=== PATIENT | male | born 1935 | race Caucasian/White ===

== ENCOUNTER 2019-11-11 12:34 | Emergency (ER) | payer MEDICARE, SELFPAY ==
--- NOTE | ~2019-11-11 | XR_ITS ---
EXAMINATION: XR chest 2V DATE: 11/11/2019 13:18 INDICATION: Syncope and weakness TECHNIQUE: PA and lateral views of the chest are obtained. COMPARISON: 10/02/2009 FINDINGS: The lungs are free of acute opacities. There is no pleural effusion or pneumothorax. The he art size is normal. There are bridging osteophytes at multiple levels in the spine, consistent with d iffuse idiopathic skeletal hyperostosis (DISH). An endoluminal aortic repair is noted. There are surg ical clips in the upper abdomen. IMPRESSION: 1. No acute cardiopulmonary abnormality. Reviewed, dictated and finalized at location B.
--- NOTE | 2019-11-11 12:41 | ED.SYNCOPE ---
HPI - Syncope General Chief Complaint: Syncope Stated Complaint: AMBULANCE Time Seen by Provider: 11/11/19 12:35 Source: patient and EMS Mode of arrival: ambulatory Limitations: no limitations History of Present Illness HPI narrative: 83-year-old man comes in today by EMS after having had a syncopal episode at home. He was sitting at the table eating lunch when he fell forward according to his . He states that he felt abnormal just prior to the episode however he did not have any shortness of breath, chest pain, nausea, abdominal pain or headache. He thinks he might have been unconscious for a short time. EMS found him slightly obtunded and with a pulse of 45. Blood sugarswere normal. He denies any recent illness. He states he was hospitalized at [facility] a month ago for valvular repair. He denies previous similar episode. He states he felt nauseated afterward, but he feels just fine now. complaint: loss of consciousness Onset (ago): minute(s) (30) -: minutes(s) Context: at rest Injuries sustained associated with event: none Current symptoms: none Treatments prior to arrival: none Related Data Home Medications Medication Instructions Recorded Confirmed acetaminophen 650 mg PO ONCE PRN 11/11/19 11/11/19 amlodipine 10 mg PO DAILY 11/11/19 11/11/19 aspirin [Aspir-81] 81 mg PO DAILY 11/11/19 11/11/19 carvedilol 25 mg PO DAILY 11/11/19 11/11/19 clopidogrel 75 mg PO DAILY 11/11/19 11/11/19 diclofenac sodium 1 % TOPICAL DAILY 11/11/19 11/11/19 famotidine 20 mg PO DAILY 11/11/19 11/11/19 ferrous sulfate 325 mg PO DAILY 11/11/19 11/11/19 gabapentin 300 mg PO DAILY 11/11/19 11/11/19 hydralazine 25 mg PO DAILY 11/11/19 11/11/19 isosorbide dinitrate 20 mg PO DAILY 11/11/19 11/11/19 polyethylene glycol 3350 [Miralax] 17 g PO DAILY 11/11/19 11/11/19 pravastatin 80 mg PO DAILY 11/11/19 11/11/19 sodium bicarbonate 650 mg PO BID 11/11/19 11/11/19 tamsulosin 0.4 mg PO DAILY 11/11/19 11/11/19 tramadol 50 mg PO BID PRN 11/11/19 11/11/19 Allergies Allergy/AdvReac Type Severity Reaction Status Date / Time Sulfa (Sulfonamide Allergy Verified 12/11/12 00:36 Antibiotics) Review of Systems Constitutional: Constitutional: Denies chills, Denies fever(s) and Denies weakness Eyes: Eyes: Denies change in vision and Denies photophobia ENT: Denies dysphagia, Denies nasal congestion and Denies sore throat Cardiovascular: Cardiovascular: Denies chest pain and Denies radiating jaw, neck or arm pain Respiratory: Respiratory: Denies chest congestion, Denies cough, Denies dyspnea and Denies wheezing Gastrointestinal: Gastrointestinal: Denies abdominal pain, Denies diarrhea, Denies nausea and Denies vomiting Genitourinary: Genitourinary: Denies hematuria, Denies dysuria and Denies urinary frequency Musculoskeletal: Musculoskeletal: Reports back pain ( chronic), Denies arthralgias and Denies joint swelling Integumentary/Breasts: Skin/Breast: Denies pruritus, Denies erythema and Denies rash Neurologic: Denies vertigo, Denies dizziness and Denies syncope Psychiatric: Psychiatric: Denies anxiety and Denies depression Endocrine: Endocrine: Denies polydipsia and Denies polyuria Hematologic/Lymphatic: Hematologic/Lymphatic: Denies easy bleeding and Denies easy bruising Allergic/Immunologic: Allergic/Immunologic: Denies lip swelling and Denies wheezing PMFSH Past Medical History Medical History Diverticulitis Dyslipidemia H/O congestive heart disease Hypertension Prostate cancer Renal insufficiency Surgical History Surgical History Heart valve replaced History of colon resection Social History Social History Smoking status: Never smoker Alcohol intake: never Substance use: never Living arrangements: with family Occupation/Education: retired
--- NOTE | 2019-11-11 12:42 | ECG_ITS ---
Measurements Intervals [place] Rate: 49 P: 49 IN: 284 QRS: 32 QRSD: 105 T: 66 QT: 439 QTc: 400 Interpretive Statements SINUS BRADYCARDIA WITH FIRST DEGREE AV BLOCK BORDERLINE ST-T WAVE ABNORMALITY- LATERAL LEADS BASELINE ARTIFACT- I, II, III, AVR, AVL, AVF, V1-V4 ABNORMAL ECG Electronically Signed On 11-11-2019 14:51:32 CDT by Baudilio Matthew D.O.
[2019-11-11 12:46] VITALS: BP 145/61; PULSE 50; RESP 17; TEMP 36.6; O2SAT 96
[2019-11-11 13:05] LABS: Basophils Absolute Auto 0.01 K/mm3 (0.00-0.10); Basophils Percent Auto 0.2 % (0.0-1.0); Eosinophils Absolute Auto 0.12 K/mm3 (0.02-0.50); Eosinophils Percent Auto 2.5 % (1.0-6.0); Hematocrit 29.5 % (37.0-46.0); Hemoglobin 9.7 g/dL (12.4-15.3); Immature Granulocyte Absolute 0.01 K/mm3 (0.00-0.00); Immature Granulocyte Percent A 0.2 % (0.0-0.0); Lymphocytes Absolute Auto 0.72 K/mm3 (1.10-4.50); Lymphocytes Percent Auto 14.7 % (18.0-42.0); Mean Corpuscular HGB Conc 32.9 g/dL (32.0-36.0); Mean Corpuscular Hemoglobin 30.1 pg (27.0-31.0); Mean Corpuscular Volume 91.6 fL (78.0-102.0); Mean Platelet Volume 9.9 fl (8.7-11.0); Monocytes Percent Auto 10.2 % (2.0-11.0); Neutrophils Absolute Auto 3.5 K/mm3 (1.7-7.2); Neutrophils Percent Auto 72.2 % (50.0-70.0); Platelet Count Result 102 K/mm3 (150-420); Red Blood Count 3.22 M/mm3 (4.70-6.10); Red Cell Distribution Width 14.3 % (11.6-14.4); White Blood Count 4.9 K/mm3 (4.8-10.8)
[2019-11-11 13:20] LABS: INR 1.1; Partial Thromboplastin Time 26.1 SEC (22.3-31.6); Prothrombin Time 11.1 Seconds (9.64-11.0)
[2019-11-11 13:23] LABS: Alanine Aminotransferase 11 U/L (16-63); Albumin Level 3.8 g/dL (3.4-5.0); Alkaline Phosphatase 44 U/L (46-116); Aspartate Amino Transferase 18 U/L (15-37); Bilirubin,Total 0.3 mg/dL (0.00-1.00); Blood Urea Nitrogen 32 mg/dL (7-18); CRP 0.5 mg/dL (0.0-0.9); Calcium 9.2 mg/dL (8.5-10.1); Carbon Dioxide 27 mmol/L (21-32); Chloride 106 mmol/L (98-108); Estimated Glomerular Filt Rate 29; Glucose 113 mg/dL (70-99); Lactic Acid 1.4 mmol/L (0.4-2.0); Osmolality Calculated 299 mOsm/kg (285-295); Sodium 141 mmol/L (136-145); Total Protein 7.1 g/dL (6.4-8.2)
[2019-11-11 13:24] LABS: Troponin I < 0.02 ng/mL (0.00-0.056)
--- NOTE | 2019-11-11 13:42 | PC.NURSE ---
CALL PLACED TO DR MORGAN, CARDIOLOGY AT [facility] [phone]
[2019-11-11 14:02] VITALS: BP 183/75; PULSE 59; RESP 16; O2SAT 96
[2019-11-11 14:21] LABS: Occult Blood Negative (Negative)
[2019-11-11 15:16] VITALS: BP 171/72; PULSE 61; O2SAT 100
== END 2019-11-11 15:18 | disposition home or self-care (01) ==
PROVIDERS: Emergency Provider Emergency Medicine; PCP Internal Medicine
DX: R55 Syncope and collapse (principal); E78.5 Hyperlipidemia, unspecified; I11.0 Hypertensive heart disease with heart failure; I50.9 Heart failure, unspecified; Z85.46 Personal history of malignant neoplasm of prostate; Z79.899 Other long term (current) drug therapy
CPT/HCPCS: 36415; 71046; 80053; 82272; 83605; 84484; 85025; 85610; 85730; 86140; 87040; 93005; 99283; 99284

== ENCOUNTER 2019-12-19 10:43 | Emergency (ER) | payer MEDICARE, SELFPAY ==
--- NOTE | ~2019-12-19 | CT_ITS ---
EXAMINATION: CT brain wo con DATE: 12/19/2019 11:21 INDICATION: Syncope. Lethargy. TECHNIQUE: Computed tomography (CT) of the head was performed without intravenous contrast. The dose- length product was 605.33 mGy-cm. The mA was adjusted according to patient size. Iterative reconstruc tion technique was employed. COMPARISON: CT dated 01/01/2019 FINDINGS: There are small chronic left lacunar infarctions. There is a focal chronic left frontal lob e infarction. There is generalized atrophy. There are scattered mild periventricular and subcortical white matter changes, most likely related to small vessel ischemic disease (microangiopathy). No acut e intracranial hemorrhage, infarction, mass or mass effect. There is mild mucosal thickening of the m axillary and ethmoid sinuses. Mastoids are pneumatized. IMPRESSION: 1. No acute intracranial abnormality. 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 3: Chronic age-related findings. Reviewed, dictated and finalized at location A.
--- NOTE | ~2019-12-19 | XR_ITS ---
XR chest 1V portable 12/19/2019 11:21 Indication: Syncope. Weakness. Procedure: AP portable chest Comparison: Comparison to multiple prior studies sequentially, with oldest reviewed study dated 10/02/2021. Findings: Cardiomegaly. No focal air space disease, pulmonary edema, pleural effusion or suspected pn eumothorax. No acute osseous abnormality. There are degenerative changes of the glenohumeral joints. Impression: 1: No acute cardiopulmonary disease. Reviewed, dictated and finalized at location A. Impression: 1: No acute cardiopulmonary disease.
[2019-12-19 10:43] VITALS: BP 198/86; PULSE 64; RESP 18; TEMP 37.1; O2SAT 98
--- NOTE | 2019-12-19 10:47 | ECG_ITS ---
Measurements Intervals [place] Rate: 60 P: 29 MD: 236 QRS: -43 QRSD: 179 T: 93 QT: 476 QTc: 478 Interpretive Statements SINUS RHYTHM WITH FIRST DEGREE AV BLOCK LEFT AXIS DEVIATION LEFT BUNDLE BRANCH BLOCK BASELINE ARTIFACT- II, III ABNORMAL ECG Electronically Signed On 12-19-2019 11:10:29 CDT by Baudilio Matthew D.O.
--- NOTE | 2019-12-19 10:53 | ED.SYNCOPE ---
HPI - Syncope General Chief Complaint: Syncope Stated Complaint: Ambulance Time Seen by Provider: 12/19/19 10:45 Source: patient Mode of arrival: ambulatory Limitations: no limitations History of Present Illness HPI narrative: 84-year-old man brought to the emergency department after having had a syncopal episode. He was sitting at a table with his when he went unconscious. He denies falls or injuries. States he has been feeling poorly in the last day or 2 and thinks he might have a UTI. He catheterizes himself daily since his TURP. He had a vomiting episode on the way to the emergency department but otherwise has been eating and drinking normally. He denies fever, shortness of breath, chest pain, abdominal pain, hematuria, dysuria, frequency, recent head injury, cough, sore throat and cold symptoms. his glucose was normal on arrival by EMS and his Pre-ER EKG showed a left bundle branch block. MD complaint: loss of consciousness Onset (ago): minute(s) Prodromal symptoms: lightheaded Witnessed: Yes - by Bystander Context: at rest Injuries sustained associated with event: none Current symptoms: other ( fatigue) History: previous syncopal episode Related Data Home Medications Medication Instructions Recorded Confirmed acetaminophen 650 mg PO ONCE PRN 11/11/19 12/19/19 amlodipine 10 mg PO DAILY 11/11/19 12/19/19 aspirin [Aspir-81] 81 mg PO DAILY 11/11/19 12/19/19 carvedilol 25 mg PO DAILY 11/11/19 12/19/19 clopidogrel 75 mg PO DAILY 11/11/19 12/19/19 diclofenac sodium 1 % TOPICAL DAILY 11/11/19 12/19/19 famotidine 20 mg PO DAILY 11/11/19 12/19/19 ferrous sulfate 325 mg PO DAILY 11/11/19 12/19/19 gabapentin 300 mg PO DAILY 11/11/19 12/19/19 hydralazine 25 mg PO DAILY 11/11/19 12/19/19 isosorbide dinitrate 20 mg PO DAILY 11/11/19 12/19/19 polyethylene glycol 3350 [Miralax] 17 g PO DAILY 11/11/19 12/19/19 pravastatin 80 mg PO DAILY 11/11/19 12/19/19 sodium bicarbonate 650 mg PO BID 11/11/19 12/19/19 tamsulosin 0.4 mg PO DAILY 11/11/19 12/19/19 tramadol 50 mg PO BID PRN 11/11/19 12/19/19 Allergies Allergy/AdvReac Type Severity Reaction Status Date / Time Sulfa (Sulfonamide Allergy Verified 12/11/12 00:36 Antibiotics) Review of Systems Constitutional: Constitutional: Denies chills, Reports fatigue and Denies fever(s) Eyes: Eyes: Denies change in vision and Denies photophobia ENT: Denies dysphagia, Denies nasal congestion and Denies sore throat Cardiovascular: Cardiovascular: Denies chest pain and Denies radiating jaw, neck or arm pain Respiratory: Respiratory: Denies cough, Denies dyspnea and Denies wheezing Gastrointestinal: Gastrointestinal: Denies abdominal pain, Denies diarrhea, Denies nausea and Reports vomiting Genitourinary: Genitourinary: Denies hematuria, Denies dysuria and Denies urinary frequency Musculoskeletal: Musculoskeletal: Denies arthralgias and Denies joint swelling Integumentary/Breasts: Skin/Breast: Denies pruritus, Denies erythema and Denies rash Neurologic: Reports as per HPI, Denies confusion, Denies headache(s), Denies focal weakness and Denies numbness Psychiatric: Psychiatric: Denies anxiety and Denies depression Endocrine: Endocrine: Denies polydipsia and Denies polyuria Hematologic/Lymphatic: Hematologic/Lymphatic: Denies easy bleeding and Denies easy bruising Allergic/Immunologic: Allergic/Immunologic: Denies lip swelling and Denies wheezing PMFSH Social History Social History Smoking status: Never smoker Alcohol intake: never Substance use: never Exam Const: General: no acute distress and alert Nutritional Appearance: obese Orientation/consciousness: patient oriented x3 HENMT: Ears: external ears normal, TM's normal bilaterally and EAC's normal Mouth: Yes Normal oral and palatal mucosa present and Yes moist mucous membranes Throat: posterior oropharynx normal and uvula midline Eyes: Conjuncti
[2019-12-19 11:06] VITALS: PULSE 62
--- NOTE | 2019-12-19 11:13 | PC.NURSE ---
report to huong hobson
[2019-12-19 11:15] LABS: Gastric Negative Control Negative; Gastric Positive Control Positive; Occult Blood Gastric Fluid Negative; pH Gastric Fluid 2 (1-8)
[2019-12-19 11:17] LABS: Basophils Absolute Auto 0.01 K/mm3 (0.00-0.10); Basophils Percent Auto 0.2 % (0.0-1.0); Eosinophils Absolute Auto 0.12 K/mm3 (0.02-0.50); Eosinophils Percent Auto 2.4 % (1.0-6.0); Hematocrit 33.8 % (37.0-46.0); Hemoglobin 11.6 g/dL (12.4-15.3); Immature Granulocyte Absolute 0.01 K/mm3 (0.00-0.00); Immature Granulocyte Percent A 0.2 % (0.0-0.0); Immature Platelet Fraction Pct 2.3 % (1.0-7.0); Lymphocytes Absolute Auto 0.53 K/mm3 (1.10-4.50); Lymphocytes Percent Auto 10.8 % (18.0-42.0); Mean Corpuscular HGB Conc 34.3 g/dL (32.0-36.0); Mean Corpuscular Hemoglobin 30.7 pg (27.0-31.0); Mean Corpuscular Volume 89.4 fL (78.0-102.0); Mean Platelet Volume 10.1 fl (8.7-11.0); Monocytes Absolute Auto 0.34 K/mm3 (0.10-0.90); Monocytes Percent Auto 6.9 % (2.0-11.0); Neutrophils Absolute Auto 3.9 K/mm3 (1.7-7.2); Neutrophils Percent Auto 79.5 % (50.0-70.0); Platelet Count Result 114 K/mm3 (150-420); Red Blood Count 3.78 M/mm3 (4.70-6.10); Red Cell Distribution Width 13.3 % (11.6-14.4); White Blood Count 4.9 K/mm3 (4.8-10.8)
[2019-12-19 11:27] LABS: Partial Thromboplastin Time 29.2 SEC (22.3-31.6); Prothrombin Time 10.5 Seconds (9.64-11.0)
[2019-12-19 11:32] LABS: Alanine Aminotransferase 12 U/L (16-63); Anion Gap 14.8 mmol/L (7-16); Aspartate Amino Transferase 15 U/L (15-37); Bilirubin,Total 0.3 mg/dL (0.00-1.00); Blood Urea Nitrogen 18 mg/dL (7-18); Calcium 9.5 mg/dL (8.5-10.1); Carbon Dioxide 27 mmol/L (21-32); Chloride 105 mmol/L (98-108); Estimated CRCL calculation 29 ml/min; Estimated Glomerular Filt Rate 37; Glucose 113 mg/dL (70-99); Osmolality Calculated 298 mOsm/kg (285-295); Potassium 3.8 mmol/L (3.5-5.1); Sodium 143 mmol/L (136-145); Total Protein 7.7 g/dL (6.4-8.2)
[2019-12-19 11:33] LABS: Troponin I < 0.02 ng/mL (0.00-0.056)
[2019-12-19 11:33] LABS: BNP 173 pg/mL (0-100)
[2019-12-19 11:43] LABS: Lactic Acid Reflex 1.3 mmol/L (0.4-2.0)
[2019-12-19 11:52] LABS: Alkaline Phosphatase 50 U/L (46-116)
[2019-12-19 12:07] LABS: Occult Blood Negative (Negative)
[2019-12-19 12:12] LABS: Add Urine Microscopic? YES; Appearance Urine Sl Cloudy (Clear); Bilirubin Urine Negative (Negative); Blood Urine 1+ (Negative); Color Urine Yellow (Yellow); Glucose Urine UA Negative (Negative); Ketones Urine Negative (Negative); Leukocyte Esterase Ur 2+ LEU/UL (Negative); Nitrate Urine Negative (Negative); Protein Urine 1+ (Negative); Specific Grav Ur 1.015 (1.010-1.020); Urobilinogen Urine 0.2 mg/dL (0.2-1.0); pH Urine 7.5 (5.0-8.0)
--- NOTE | 2019-12-19 12:20 | PC.NURSE ---
Dr. Ludwig requesting to speak with Dr. Cortes, pts tar distillation supervisor at [facility]. Dr. Cortes paged.
[2019-12-19 12:24] LABS: WBC Urine 31-50 /hpf (0-3)
[2019-12-19 12:25] VITALS: BP 197/83; PULSE 72
[2019-12-19 12:25] LABS: Bacteria Urine 3+ /hpf
[2019-12-19 12:30] VITALS: BP 154/75; PULSE 82
--- NOTE | 2019-12-19 12:31 | PC.NURSE ---
Dr. Ludwig speaking with Dr. Cortes.
[2019-12-19] MEDS: SODIUM CHLORIDE 0.9% IV 500 ML 999 ML IV CONT (12:43)
[2019-12-19 13:52] LABS: Troponin I < 0.02 ng/mL (0.00-0.056)
[2019-12-19 14:18] VITALS: BP 182/76; PULSE 72; RESP 16
== END 2019-12-19 14:21 | disposition home or self-care (01) ==
PROVIDERS: Emergency Provider Emergency Medicine; PCP Internal Medicine
DX: N39.0 Urinary tract infection, site not specified (principal); R55 Syncope and collapse; R11.10 Vomiting, unspecified
CPT/HCPCS: 36415; 70450; 71045; 80053; 81001; 82271; 82272; 83605; 83880; 83986; 84484; 85025; 85055; 85610; 85730; 87040; 87077; 87086; 87088; 87186; 93005; 96365; 99283; 99284; J0696; J7040

== ENCOUNTER 2020-01-08 10:24 | Outpatient (CLI) | payer MEDICARE, SELFPAY | END 2020-01-08 10:25 | disposition home or self-care (01) | PROVIDERS: PCP Internal Medicine | DX: N30.00 Acute cystitis without hematuria (principal) | CPT/HCPCS: 87077; 87086; 87088; 87186 ==

== ENCOUNTER 2020-02-12 09:20 | Emergency (ER) | payer MEDICARE, SELFPAY ==
[2020-02-12 09:25] VITALS: BP 163/84; PULSE 51; RESP 20; TEMP 36.7; O2SAT 99
--- NOTE | 2020-02-12 09:53 | ED.EAR ---
HPI - Ear Problem General Chief complaint: Ear Stated complaint: Ear pain Source: patient Mode of arrival: ambulatory Limitations: no limitations History of Present Illness HPI Narrative: this an 84-year-old gentleman that presents with left ear pain and swelling around the external ear canal currently no drainage no fever chills no sinus congestion no nasal discharge, patient states that earache started approximately 2 to 3 days ago does wear hearing aids bilaterally. Has a history of hypertension and hyperlipidemia. MD Complaint: ear pain and decreased hearing Location: left ear Duration: constant Severity: moderate Relieving factors: nothing Exacerbating factors: chewing and position of head Discharge from ear: Reports no Treatment prior to arrival: oral analgesic Related Data Home Medications Medication Instructions Recorded Confirmed acetaminophen 650 mg PO ONCE PRN 11/11/19 12/19/19 amlodipine 10 mg PO DAILY 11/11/19 12/19/19 aspirin [Aspir-81] 81 mg PO DAILY 11/11/19 12/19/19 carvedilol 25 mg PO DAILY 11/11/19 12/19/19 clopidogrel 75 mg PO DAILY 11/11/19 12/19/19 diclofenac sodium 1 % TOPICAL DAILY 11/11/19 12/19/19 famotidine 20 mg PO DAILY 11/11/19 12/19/19 ferrous sulfate 325 mg PO DAILY 11/11/19 12/19/19 gabapentin 300 mg PO DAILY 11/11/19 12/19/19 hydralazine 25 mg PO DAILY 11/11/19 12/19/19 isosorbide dinitrate 20 mg PO DAILY 11/11/19 12/19/19 polyethylene glycol 3350 [Miralax] 17 g PO DAILY 11/11/19 12/19/19 pravastatin 80 mg PO DAILY 11/11/19 12/19/19 sodium bicarbonate 650 mg PO BID 11/11/19 12/19/19 tamsulosin 0.4 mg PO DAILY 11/11/19 12/19/19 tramadol 50 mg PO BID PRN 11/11/19 12/19/19 Allergies Allergy/AdvReac Type Severity Reaction Status Date / Time Sulfa (Sulfonamide Allergy Verified 12/11/12 00:36 Antibiotics) Review of Systems Review of Systems: All systems reviewed & are unremarkable except as noted in HPI and below PMFSH Past Medical History Medical History Diverticulitis Dyslipidemia H/O congestive heart disease Hypertension Prostate cancer Renal insufficiency Surgical History Surgical History Heart valve replaced History of colon resection Social History Social History Smoking status: Never smoker Alcohol intake: never Substance use: never Exam Const: General: no acute distress and alert Orientation/consciousness: patient oriented x3 HENMT: Head: normal to inspection Other: External ear canal on the left swollen red and tender currently no drainage. Eyes: Conjunctivae: conjunctivae normal Pupils: Equal, round and reactive pupils present EOM: EOMs intact bilaterally Resp: Effort & Inspection: normal respiratory effort Auscultation: clear to auscultation bilaterally Cardio: Rate: regular rate Rhythm: regular rhythm GI: Auscultation: normal bowel sounds Back/Spine/Pelvis: Back: no CVA tenderness Skin: General skin exam: normal color Rashes: no rashes Neuro: General: patient oriented x3 Extrem: General: normal to inspection Psych: Appearance: grossly normal Mental Status: mental status grossly normal Affect: normal affect Course Course Emergency Course: Patient stated that he wanted his urine checked, despite having no symptoms no dysuria no hematuria no bladder tenderness no flank pain, evaluation of left ear canal is swollen red and tender and inform patient that we will send a prescription antibiotic and antibiotic ear drops to his pharmacy. Critical Care Time Critical Care Time Critical Care Time: No Discharge Plan Discharge Clinical Impression: Otitis externa Qualifiers: Otitis externa type: unspecified type Chronicity: acute Laterality: left Qualified Code(s): H60.502 - Unspecified acute noninfective otitis externa, left ear Patient Disposition: Home, April
--- NOTE | 2020-02-12 09:58 | PC.NURSE ---
PT REQUESTING URINE CHECKED FOR INFECTION RELATED TO PREVIOUS HISTORY, DENIES PAIN, BURNING, OR URINE DIFFICULTY. SINCE IM HERE, CAN I GET IT CHECKED. .
[2020-02-12 10:05] LABS: Appearance Urine Clear (Clear); Bilirubin Urine Negative (Negative); Color Urine Yellow (Yellow); Glucose Urine UA Negative (Negative); Ketones Urine Negative (Negative); Leukocyte Esterase Ur Negative (Negative); Nitrate Urine Negative (Negative); Protein Urine Negative (Negative); Specific Grav Ur 1.015 (1.010-1.020); Urobilinogen Urine 0.2 mg/dL (0.2-1.0)
[2020-02-12 10:07] LABS: Add Urine Microscopic? YES; Blood Urine Trace-Intact (Negative); RBC Urine 0-2 /hpf (0-2)
[2020-02-12 10:08] LABS: Bacteria Urine None seen /hpf; Mucus Urine None seen /lpf; Squamous Epithelial Cell Urine Rare /hpf (Few); WBC Urine None seen /hpf (0-3)
[2020-02-12 10:20] VITALS: BP 167/87; PULSE 54; RESP 20; TEMP 36.9; O2SAT 98
== END 2020-02-12 10:21 | disposition home or self-care (01) ==
PROVIDERS: Emergency Provider Emergency Medicine
DX: H60.502 Unspecified acute noninfective otitis externa, left ear (principal)
CPT/HCPCS: 81001; 99283

== ENCOUNTER 2020-06-22 15:44 | Outpatient (NON) | payer MEDICARE, SELFPAY ==
[2020-06-22 15:59] LABS: Appearance Urine Cloudy (Clear); Bilirubin Urine Negative (Negative); Color Urine Yellow (Yellow); Glucose Urine UA Negative (Negative); Ketones Urine Negative (Negative); Leukocyte Esterase Ur 3+ LEU/UL (Negative); Nitrate Urine Negative (Negative); Protein Urine Negative (Negative); Urobilinogen Urine 0.2 mg/dL (0.2-1.0)
[2020-06-22 16:05] LABS: Add Urine Microscopic? YES; Bacteria Urine 4+ /hpf; Blood Urine Trace-Intact (Negative); RBC Urine 0-2 /hpf (0-2); Squamous Epithelial Cell Urine Rare /hpf (Few); WBC Urine >75 /hpf (0-3)
== END 2020-06-22 15:45 ==
LOC: CHSLAB 15:49
DX: N39.0 Urinary tract infection, site not specified (principal)
CPT/HCPCS: 81001; 87077; 87086; 87088; 87186

== ENCOUNTER 2020-08-02 12:04 | Outpatient (NON) | payer MEDICARE, SELFPAY | END 2020-08-02 12:05 | LOC: CHSLAB 12:09 | DX: R30.0 Dysuria (principal) | CPT/HCPCS: 87077; 87086; 87088; 87186 ==

== ENCOUNTER 2020-08-06 18:08 | Emergency (ER) | payer MEDICARE, SELFPAY ==
[2020-08-06] VITALS (53 sets, daily range): BP systolic 108–204; BP diastolic 46–95; PULSE 30–76; RESP 9–27; TEMP 36; O2SAT 96–99
--- NOTE | ~2020-08-06 | CT_ITS ---
EXAMINATION: CT brain wo con DATE: 08/06/2020 19:00 INDICATION: Closed head injury. Syncope. TECHNIQUE: Computed tomography (CT) of the head was performed without intravenous contrast. The dose- length product was 434.34 mGy-cm. The mA was adjusted according to patient size. Iterative reconstruc tion technique was employed. COMPARISON: CT dated 12/19/2019 FINDINGS: There are chronic left frontal lobe and lacunar infarctions. Mild generalized brain parench ymal volume loss. There is intracranial atherosclerosis. Basilar cisterns are patent. Midline sagitta l images are unremarkable. There is mild mucosal thickening of the maxillary and ethmoid sinuses. Mas toids are pneumatized. No depressed skull fractures. There is high density material in the basilar ci sterns, compatible with small subarachnoid hemorrhage. There are scattered mild periventricular and subcortical white matter changes, most likely related to small vessel ischemic disease (microangiopathy). IMPRESSION: 1. Small subarachnoid hemorrhage of the basilar cisterns. 2: Chronic left frontal lobe left lacunar infarctions. Reviewed, dictated and finalized at location A. ICE OR WORK DISPATCHER
--- NOTE | ~2020-08-06 | XR_ITS ---
XR chest 1V portable 08/06/2020 18:34 Indication: Syncope. Bradycardia. Procedure: AP portable chest Comparison: 12/19/2019 Findings: Borderline heart size. No focal air space disease, pulmonary edema, pleural effusion or yamil pected pneumothorax. There are degenerative changes of the glenohumeral joints. No acute osseous abno rmality. Impression: 1: No acute cardiopulmonary disease. Reviewed, dictated and finalized at location A. PICKER Impression: 1: No acute cardiopulmonary disease.
--- NOTE | ~2020-08-06 | CT_ITS ---
EXAMINATION: CT cervical spine wo con DATE: 08/06/2020 18:59 INDICATION: Neck pain after syncope TECHNIQUE: Computed tomography (CT) of the cervical spine was performed without intravenous contrast. The dose-length product was 434 mGy-cm. Automated exposure control and iterative reconstruction tech nique were employed. COMPARISON: None FINDINGS: There is normal cervical lordosis. There is degenerative anterolisthesis at C5-6. There is disc narrowing and endplate degenerative change at multiple levels. There is multilevel facet and unc inate hypertrophy. No evidence for perched facet. Craniovertebral junction is normal. Lung apices are normal. No acute fracture or traumatic malalignment. IMPRESSION: 1. No acute abnormality of the cervical spine. 2: Moderate-severe cervical spondylosis. Reviewed, dictated and finalized at location A. ING INSTALLER
--- NOTE | 2020-08-06 18:12 | ECG_ITS ---
Measurements Intervals [place] Rate: 20 P: ND: 0 QRS: -76 QRSD: 158 T: 64 QT: 557 QTc: 327 Interpretive Statements SINUS RHYTHM WITH COMPLETE HEART BLOCK SLOW JUNCTIONAL ESCAPE RHYTHM RIGHT BUNDLE BRANCH BLOCK LEFT ANTERIOR FASCICULAR BLOCK BASELINE WANDER- I, II ABNORMAL ECG Electronically Signed On 08-06-2020 18:34:24 PHYS ASST by Baudilio Matthew D.O.
--- NOTE | 2020-08-06 18:15 | PC.NURSE ---
Pt had approx 10 second episode of asystole, name called and then sternal rub. pt sluggish to respond initially and the pt hr resumed to 60 bpm and 1st degree block. Pt answering questions appropriately after episode.
[2020-08-06 18:40] LABS: Basophils Absolute Auto 0.02 K/mm3 (0.00-0.10); Basophils Percent Auto 0.4 % (0.0-1.0); Eosinophils Absolute Auto 0.14 K/mm3 (0.02-0.50); Eosinophils Percent Auto 2.7 % (1.0-6.0); Hematocrit 36.2 % (37.0-46.0); Hemoglobin 12.1 g/dL (12.4-15.3); Immature Granulocyte Absolute 0.03 K/mm3 (0.00-0.00); Immature Granulocyte Percent A 0.6 % (0.0-0.0); Immature Platelet Fraction Pct 2.8 % (1.0-7.0); Lymphocytes Absolute Auto 1.02 K/mm3 (1.10-4.50); Mean Corpuscular HGB Conc 33.4 g/dL (32.0-36.0); Mean Corpuscular Hemoglobin 30.8 pg (27.0-31.0); Mean Corpuscular Volume 92.1 fL (78.0-102.0); Mean Platelet Volume 9.6 fl (8.7-11.0); Monocytes Absolute Auto 0.41 K/mm3 (0.10-0.90); Neutrophils Absolute Auto 3.5 K/mm3 (1.7-7.2); Neutrophils Percent Auto 68.3 % (50.0-70.0); Platelet Count Result 98 K/mm3 (150-420); Red Blood Count 3.93 M/mm3 (4.70-6.10); Red Cell Distribution Width 13.5 % (11.6-14.4); White Blood Count 5.1 K/mm3 (4.8-10.8)
--- NOTE | 2020-08-06 18:41 | PCDIET ---
Pt taken to ct with RN at bedside.
--- NOTE | 2020-08-06 18:42 | PC.NURSE ---
pt rolled to side , old bruise to right rib area. pt to xray for CT per er stretcher and xray staff.
[2020-08-06 18:56] LABS: Alanine Aminotransferase 14 U/L (16-63); Albumin Level 4.3 g/dL (3.4-5.0); Alkaline Phosphatase 51 U/L (46-116); Anion Gap 9 mmol/L (8-16); Aspartate Amino Transferase 11 U/L (15-37); Bilirubin,Total 0.4 mg/dL (0.00-1.00); Blood Urea Nitrogen 30 mg/dL (7-18); Calcium 9.3 mg/dL (8.5-10.1); Carbon Dioxide 26 mmol/L (21-32); Chloride 103 mmol/L (98-108); Estimated CRCL calculation 27 ml/min; Estimated Glomerular Filt Rate 36; Glucose 137 mg/dL (70-99); Osmolality Calculated 294 mOsm/kg (285-295); Potassium 4.1 mmol/L (3.5-5.1); Sodium 138 mmol/L (136-145); Total Protein 7.5 g/dL (6.4-8.2)
[2020-08-06 18:57] LABS: Partial Thromboplastin Time 27.9 SEC (23.90-30.70); Prothrombin Time 11.1 Seconds (9.50-12.10)
[2020-08-06 19:02] LABS: BNP 198 pg/mL (0-100); Troponin I 12.5 ng/L (0.00-60.4)
--- NOTE | 2020-08-06 19:15 | ECG_ITS ---
Measurements Intervals [place] Rate: 66 P: 70 NH: 299 QRS: -41 QRSD: 181 T: 90 QT: 466 QTc: 491 Interpretive Statements SINUS RHYTHM WITH FIRST DEGREE AV BLOCK LEFT AXIS DEVIATION LEFT BUNDLE BRANCH BLOCK ABNORMAL ECG Electronically Signed On 08-07-2020 7:49:35 [employer]HALT STILL OPERATOR by Baudilio Matthew D.O.
[2020-08-06 19:18] LABS: D Dimer 5.48 mg/L (0.19-0.50)
[2020-08-06 19:45] LABS: Add Urine Microscopic? YES; Bilirubin Urine Negative (Negative); Blood Urine 1+ (Negative); Color Urine Yellow (Yellow); Glucose Urine UA Negative (Negative); Ketones Urine Negative (Negative); Leukocyte Esterase Ur 2+ LEU/UL (Negative); Nitrate Urine Negative (Negative); Protein Urine 1+ (Negative); Specific Grav Ur 1.015 (1.010-1.020); Urobilinogen Urine 0.2 mg/dL (0.2-1.0)
[2020-08-06 19:52] LABS: Amphetamine Screen Urine Negative (Negative); Barbiturate Screen Urine Negative (Negative); Benzodiazepines Screen Urine Negative (Negative); Cannabinoid Screen Urine Negative (Negative); Cocaine Screen Urine Negative (Negative); Methadone Screen Urine Negative (Negative); Opiate Screen Urine Negative (Negative); Phencyclidine Screen Urine Negative (Negative)
--- NOTE | 2020-08-06 19:52 | PC.NURSE ---
Dr. lynn speaking with Dr. Cunningham at [facility].
[2020-08-06 19:59] LABS: Appearance Urine Sl Cloudy (Clear)
[2020-08-06 20:00] LABS: RBC Urine 0-2 /hpf (0-2); Squamous Epithelial Cell Urine Occasional /hpf (Few); WBC Clumps Urine Present /hpf; WBC Urine >75 /hpf (0-3)
[2020-08-06 20:01] LABS: Bacteria Urine 2+ /hpf
[2020-08-06] MEDS: MORPHINE SULFATE (*CRX) 2 MG/ML INJ IV PUSH ×3 (20:38→23:35)
--- NOTE | 2020-08-06 21:03 | PC.NURSE ---
dR. OROZCO SPEAKING WITH DR GONZALEZ, NEUROLOGY, AT [facility].
--- NOTE | 2020-08-06 21:14 | ED.SYNCOPE ---
HPI - Syncope General Chief Complaint: Arrhythmia/Palpitations Stated Complaint: AMB Time Seen by Provider: 08/06/20 18:12 Source: patient Mode of arrival: EMS Limitations: altered mental status History of Present Illness HPI narrative: 84-year-old man brought to the emergency department by EMS after having passed out at home. His states that he was feeling out Cristian cards, got up to go to the restroom using his walker, defecated, and on his way back from the bathroom he fell backwards and was unconscious. His states that he was confused after the fall. He denies any chest pain, shortness of breath, palpitations, nausea vomiting or headache prior to the fall. He has had no recent illnesses such as cough or cold symptoms, abdominal pain, fever, or neurologic symptoms such as numbness, tingling, weakness, double vision or difficulty with language or speech. He has had 2 prior visits for similar symptoms in this Emergency Department. There is a history of presenting with bradycardia. according to his he has had coronary stents and a TAVR in the last year. MD complaint: loss of consciousness and collapsed Onset (ago): minute(s) (20) -: minutes(s) Description of event: post-event confusion Prodromal symptoms: none Witnessed: Yes - by Bystander Context: during exertion Injuries sustained associated with event: head Current symptoms: headache ( Mild) and other ( mild confusion) History: previous syncopal episode and history of CAD Treatments prior to arrival: none Related Data Home Medications Medication Instructions Recorded Confirmed acetaminophen 650 mg PO ONCE PRN 11/11/19 08/06/20 amlodipine 5 mg PO DAILY 11/11/19 08/06/20 aspirin [Aspir-81] 81 mg PO DAILY 11/11/19 08/06/20 carvedilol 25 mg PO BID 11/11/19 08/06/20 clopidogrel 75 mg PO DAILY 11/11/19 08/06/20 diclofenac sodium 1 % TOPICAL BID 11/11/19 08/06/20 gabapentin 300 mg PO HS 11/11/19 08/06/20 polyethylene glycol 3350 [Miralax] 17 g PO DAILY 11/11/19 08/06/20 pravastatin 80 mg PO HS 11/11/19 08/06/20 sodium bicarbonate 650 mg PO BID 11/11/19 08/06/20 tramadol 50 mg PO BID PRN 11/11/19 08/06/20 ciprofloxacin HCl 250 mg PO DAILY 08/06/20 08/06/20 ferrous sulfate 325 mg PO BID 08/06/20 08/06/20 tamsulosin 0.4 mg PO BID 08/06/20 08/06/20 Allergies Allergy/AdvReac Type Severity Reaction Status Date / Time Sulfa (Sulfonamide Allergy Verified 12/11/12 00:36 Antibiotics) Review of Systems Constitutional: Constitutional: Denies chills, Denies fever(s) and Denies weakness Eyes: Eyes: Denies change in vision and Denies photophobia ENT: Denies dysphagia, Denies nasal congestion and Denies sore throat Cardiovascular: Cardiovascular: Denies chest pain and Denies radiating jaw, neck or arm pain Respiratory: Respiratory: Denies cough, Denies dyspnea and Denies wheezing Gastrointestinal: Gastrointestinal: Denies abdominal pain, Denies nausea and Denies vomiting Genitourinary: Genitourinary: Denies hematuria, Denies dysuria and Denies urinary frequency Musculoskeletal: Musculoskeletal: Reports back pain, Denies arthralgias and Denies joint swelling Integumentary/Breasts: Skin/Breast: Denies pruritus, Denies erythema and Denies rash Neurologic: Denies vertigo, Denies dizziness, Reports syncope, Reports headache(s), Denies focal weakness and Denies numbness Hematologic/Lymphatic: Hematologic/Lymphatic: Denies easy bleeding and Denies easy bruising Allergic/Immunologic: Allergic/Immunologic: Denies lip swelling and Denies tongue swelling [facility] Past Medical History Medical History (Updated 08/06/20 @ 21:40 by Randy Ludwig MD) Diverticulitis Dyslipidemia H/O congestive heart disease Hypertension Prostate cancer Renal insufficiency Surgical History Surgical History Heart valve replaced History of colon resection Social History Social History (Reviewed 08/06/20 @ 21:26 by
[2020-08-06 21:37] LABS: Thyroid Stimulating Hormone Reflex 2.97 u/IU/mL (0.36-3.74)
--- NOTE | 2020-08-06 23:28 | PC.NURSE ---
Pt repositioned on right side for comfort, pillow between knees.
[2020-08-06] MEDS: SODIUM CHLORIDE 0.9% IV 1,000 ML 100 ML IV CONT (23:30)
[2020-08-07] VITALS (9 sets, daily range): BP systolic 105–131; BP diastolic 39–50; PULSE 58–62; RESP 11–14; O2SAT 95–98
--- NOTE | 2020-08-07 00:35 | PC.NURSE ---
Call back from [facility] bed assignement. Call made by [facility] to give report. Pt. to go to [place] [id number] Bed 1.
[2020-08-07 01:12] LABS: Troponin I 27.3 ng/L (0.00-60.4)
== END 2020-08-07 01:39 | disposition short-term general hospital (02) ==
PROVIDERS: Emergency Provider Emergency Medicine; PCP Internal Medicine
DX: I60.9 Nontraumatic subarachnoid hemorrhage, unspecified (principal); I44.2 Atrioventricular block, complete; N39.0 Urinary tract infection, site not specified; R79.1 Abnormal coagulation profile; R55 Syncope and collapse; N18.32 Chronic kidney disease, stage 3b; E78.5 Hyperlipidemia, unspecified; I50.9 Heart failure, unspecified; Z85.46 Personal history of malignant neoplasm of prostate; Z79.899 Other long term (current) drug therapy
CPT/HCPCS: 36415; 70450; 71045; 72125; 80053; 80307; 81001; 83880; 84443; 84484; 85025; 85055; 85380; 85610; 85730; 87077; 87086; 87088; 87186; 93005; 96361; 96365; 96375; 96376; 99285; 99291; J0696; J2270; J7030

== ENCOUNTER 2020-08-14 17:36 | IRF | payer MEDICARE, SELFPAY ==
[2020-08-14 17:55] VITALS: BP 169/54; PULSE 59; RESP 20; TEMP 36.8; O2SAT 96
[2020-08-14 17:56] VITALS: BMI 30.2
--- NOTE | 2020-08-14 18:48 | ADMGEN ---
This patient, Pasquale Hernandez, was admitted to [facility] Room 223-02. Patient/family oriented to hospital policies and general routines including ID bracelet, bed and alarms, visiting hours, pain management, procedures, bathroom and other care routines, personal items, smoking policy, room service/diet, and visiting hours. Information on how to activate the Rapid Response Team has been discussed. Patient/Family are encouraged to report perceived risks to care and to ask questions if they do not understand what they are told or what they should do.
--- NOTE | 2020-08-14 19:07 | PC.NURSE ---
no valuables here except cell phone.
[2020-08-14 19:09] VITALS: PULSE 59; RESP 20; O2SAT 96
[2020-08-14 20:10] VITALS: PULSE 60; RESP 20; O2SAT 97
[2020-08-14] MEDS: traMADol HCL (*CRX) 50 MG TABLET PO (21:12)
[2020-08-14] MEDS: DOCUSATE SODIUM 100 MG CAPSULE PO (21:29)
[2020-08-14] MEDS: GABAPENTIN 300 MG CAPSULE PO (21:29)
[2020-08-14] MEDS: SENNOSIDES 8.6 MG TABLET PO (21:29)
[2020-08-14] MEDS: SODIUM BICARBONATE TAB 650 MG TABLET PO (21:30)
[2020-08-14] MEDS: FAMOTIDINE 20 MG TABLET PO (21:30)
[2020-08-14 21:31] VITALS: PULSE 62
[2020-08-14] MEDS: carvediloL 12.5 MG TABLET PO (21:31)
[2020-08-14 22:00] VITALS: BP 152/43; PULSE 60; RESP 20; TEMP 36.9; O2SAT 97
[2020-08-15 05:20] LABS: Basophils Percent Auto 0.6 % (0.2-1.2); Eosinophils Absolute Auto 0.3 K/mm3 (0-0.3); Eosinophils Percent Auto 5.9 % (0-4.4); Hematocrit 31.8 % (42.0-52.0); Hemoglobin 10.8 g/dL (14.0-18.0); Immature Granulocyte Absolute 0.03 K/mm3 (0.00-0.031); Immature Granulocyte Percent A 0.6 % (0-0.5); Immature Platelet Fraction Pct 3.7 % (0.9-11.2); Lymphocytes Absolute Auto 1.43 K/mm3 (0.9-3.2); Lymphocytes Percent Auto 28.9 % (18.3-44.2); Mean Corpuscular Hemoglobin 30.9 pg (26-34); Mean Corpuscular Volume 91.1 fl (80-100); Mean Platelet Volume 10.3 fl (7.4-10.4); Monocytes Absolute Auto 0.4 K/mm3 (0.1-0.6); Monocytes Percent Auto 8.5 % (2.6-8.5); Neutrophils Absolute Auto 2.8 K/mm3 (1.3-6.7); Neutrophils Percent Auto 55.5 % (45.5-73.1); Platelet Count Result 102 k/mm3 (150-375); Red Blood Count 3.49 M/mm3 (4.6-6.20); Red Cell Distribution Width 13.4 % (11.5-14.5)
[2020-08-15 05:22] LABS: Anion Gap 6 mmol/L (8-16); Blood Urea Nitrogen 24 mg/dL (9-20); Carbon Dioxide 27 mmol/L (22-30); Chloride 103 mmol/L (98-107); Estimated CRCL calculation 41 ml/min; Estimated Glomerular Filt Rate 53; Glucose 85 mg/dL (75-110); Potassium 4.4 mmol/L (3.4-5.0); Sodium 136 mmol/L (137-145)
[2020-08-15 05:27] VITALS: BP 169/58; PULSE 60; RESP 20; TEMP 36.3; O2SAT 95
[2020-08-15] MEDS: traMADol HCL (*CRX) 50 MG TABLET PO (06:46)
[2020-08-15] MEDS: FERROUS SULFATE 324 MG TABLET PO (08:40)
[2020-08-15 08:41] VITALS: PULSE 94
[2020-08-15] MEDS: amLODIPine BESYLATE 5 MG TABLET 10 MG PO (08:41)
[2020-08-15] MEDS: carvediloL 12.5 MG TABLET PO ×2 (08:41→21:03)
[2020-08-15] MEDS: CYANOCOBALAMIN 1,000 MCG TABLET 1000 MCG PO (08:43)
[2020-08-15] MEDS: FAMOTIDINE 20 MG TABLET PO ×2 (08:43→21:03)
[2020-08-15] MEDS: DOCUSATE SODIUM 100 MG CAPSULE PO ×2 (08:43→17:12)
[2020-08-15] MEDS: GABAPENTIN 300 MG CAPSULE PO ×3 (08:44→17:10)
[2020-08-15] MEDS: lisinopriL 10 MG TABLET PO (08:44)
[2020-08-15] MEDS: FONDAPARINUX SODIUM 2.5 MG/0.5 ML SYRINGE SUB-Q (08:44)
[2020-08-15] MEDS: polyethylene glycoL 3350 17 GM POWD.PACK PO (08:45)
[2020-08-15] MEDS: PRAVASTATIN SODIUM 20 MG TABLET 80 MG PO (08:46)
[2020-08-15] MEDS: SODIUM BICARBONATE TAB 650 MG TABLET PO ×2 (08:48→17:10)
[2020-08-15] MEDS: TAMSULOSIN HCL 0.4 MG CAPSULE PO (08:48)
[2020-08-15] MEDS: SENNOSIDES 8.6 MG TABLET PO ×2 (08:49→17:10)
--- NOTE | 2020-08-15 12:18 | WPDREHABHP ---
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 The patient is an 84 years old male with a past medical history of hypertension, hyperlipidemia, coronary artery disease, aortic valve replacement, chronic kidney disease, renal artery stenosis, sleep apnea, and spinal stenosis who presented to [facility] following a syncopal fall. The patient reported falling backwards while walking away from the bathroom. The patient landed on the occipital part of his head and lost unconsciousness. Next thing the patient remembered that he was at [facility]. There was no prodromal. Symptoms. Upon arrival with EMS the patient was bradycardiac with a heart rate of 20-30 is on EKG initially showed complete heart block with rate of 20 and then patient spontaneously converted and subsequently EKG showed sinus rhythm with first-degree block and left bundle branch block at a rate of 66. CT scan of the head revealed a small subarachnoid hemorrhage of the basilar cistern and chronic left frontal lobe lacunar infarct. CT of the cervical spine was negative. The patient was transferred to [facility] in [place] for further neurosurgical evaluation and cardiological management. Neurosurgical service consulted and the patient underwent hourly neurological checks and a repeat CT scan of the head was done which revealed expected evolution of small volume subarachnoid hemorrhage. CTA revealed improving bifrontal small volume subarachnoid hemorrhage with no aneurysm or vascular malformation recognized. On August 07, 2020 the patient received 2units of platelets for thrombocytopenia and DA PT. Comorbid negative. He was started on cefepime for urinary tract infection. Cardiology and electrophysiology was consulted and deemed the patient in need of a pacemaker. On August 09, 2020 the patient underwent permanent pacemaker placement and also received 2units of platelets. On August 12, 2020 the patient received 2units of platelets with resulting platelet count of 1 1 9. DVT prophylaxis was initially held given the patient's low platelet count but the patient was started on fondaparinux for DVT prophylaxis on August 12, 2020 he is to resume aspirin on August 21, 2020 and his Plavix will be held up until follow-up he is awake alert oriented x4 at the time of transfer to our institution. COVID# The patient has not traveled outside the [place] or had contact with someone who is ill that his travel outside the [place] in the past 21 days. The patient has not traveled to an area of the [place] that is experiencing known transmission of the alvarenga virus and has not had close personal contact with anyone that has. The patient does not have a fever. The patient is not experiencing lower respiratory illness symptoms. Negative covid test on August 07, 2020 last time Therapy was initiated at the acute care facility and the patient transferred to us from [facility] on August 14, 2020 FALLS OR SURGERIES: the patient has had no major surgery in the last 100 days. The patient has had falls in the past year. The patient has had falls with injury in the past year( fall on August 07, 2020 causing the intracranial hemorrhage) PAST MEDICAL HISTORY: chronic kidney disease, due to radiation on September 19, 2008, diverticulitis with rupture, renal artery stenosis on 12/04 [id number], hearing loss bilaterally, hyperlipidemia, hypertension, prostatic cancer radiation treatment, radiation proctitis 2006, sleep apnea, renal stenosis, ventral hernia on September 19, 2008 PAST SURGICAL HISTORY: aortic valve replacement, colon rectum E, left knee
[2020-08-15 12:28] VITALS: BMI 30.2
--- NOTE | 2020-08-15 13:56 | WPDREHABHP ---
H&P: HPI History of Present Illness Date/Time: 08/15/20 13:56 Narrative: Pasquale Hernandez is a 84 year old maleHISTORY OF PRESENT ILLNESS: The patient's primary rehab impairment category is The etiologic diagnosis is [] I saw this patient [id number] on [] The patient is a [] Therapy was initiated at the acute care facility and the patient transferred to us from [[facility]] on [] FALLS OR SURGERIES: The patient has had [no] major surgeries in the 100 days prior to admission. They had [no] falls in the past year. They had [no] falls with injury in the past year. PAST MEDICAL HISTORY: [] PAST SURGICAL HISTORY: [] SOCIAL HISTORY: [] FAMILY HISTORY: [] PRIOR LEVEL OF FUNCTION: Eating was [INDEPENDENT] Oral Care was [INDEPENDENT] Toileting Hygiene was [INDEPENDENT] Shower/Bathing was [INDEPENDENT] Upper Body Dressing was [INDEPENDENT] Lower Body Dressing was [INDEPENDENT] Donning/[place] Footwear was [INDEPENDENT] Rolling Left and Right was [INDEPENDENT] Sit to Lying was [INDEPENDENT] Lying to Sitting was [INDEPENDENT] Sit to Stand was [INDEPENDENT] Bed to Chair Transfers was [INDEPENDENT] Toilet Transfers was [INDEPENDENT] Walking was [INDEPENDENT] [>500 feet] with [NO DEVICE] Wheelchair Mobility was [NOT APPLICABLE PRIOR TO ADMISSION] Stairs were [INDEPENDENT] CURRENT LEVEL OF FUNCTION: Eating was [SET UP ONLY] Oral Care was [SET UP ONLY] Toileting Hygiene was [] Shower/Bathing was [] Upper Body Dressing was [] Lower Body Dressing was [] Donning/[place] Footwear was [] Rolling Left and Right was [] Sit to Lying was [] Lying to Sitting was [] Sit to Stand was [] Bed to Chair Transfers were [] Toilet Transfers were [] Walking was [] Wheelchair Mobility was [] Stairs were [] GOALS: Our therapists will evaluate the patient and establish the goals. However, upon pre-admission screening, the expected goals were to be [INDEPENDENT] with self-care, [INDEPENDENT] with transfers, and [INDEPENDENT] with functional mobility so that the patient can return home. ESTIMATED LENGTH OF STAY: [10-14 days] POTENTIAL BARRIERS TO DISCHARGE: [Patient lives alone.] [Family needs training.] [Severity of condition.] [Architectural barriers.] ACTIVE CO-MORBIDITIES PRESENT ON ADMISSION: Active co-morbidities include []. The above co-morbidities impact the patient's function and/or functional outcome by [] [facility] Past Medical History Medical History (Updated 08/08/20 @ 00:00 by Gabe Irizarry) Diverticulitis Dyslipidemia H/O congestive heart disease Hypertension Prostate cancer Renal insufficiency Surgical History Surgical History Heart valve replaced History of colon resection Family History Family History (Updated 08/14/20 @ 19:30 by Mitra Del Rosario RN) Father Cerebrovascular accident Sibling CAD (coronary artery disease) Social History Social History Smoking status: Never smoker Alcohol intake: never Substance use: never Substance use type: does not use Gender identity (if verbalized by the patient): Male Sexual Orientation (if Verbalized by the Patient): Straight or Heterosexual Spiritual care concerns: No Meds Home Medications and Allergies Home Medications Medication Instructions Recorded Confirmed Type acetaminophen 650 mg PO ONCE PRN 11/11/19 08/06/20 History amlodipine 5 mg PO DAILY 11/11/19 08/06/20 History aspirin [Aspir-81] 81 mg PO DAILY 11/11/19 08/06/20 History carvedilol 25 mg PO BID 11/11/19 08/06/20 History clopidogrel 75 mg PO DAILY 11/11/19 08/06/20 History diclofenac sodium 1 % TOPICAL BID 11/11/19 08/06/20 History gabapentin 300 mg PO HS 11/11/19 08/06/20 History polyethylene glycol 3350 [Miralax] 17 g PO DAILY 11/11/19 08/06/20 History pravastatin 80 mg PO HS 11/11/19 08/06/20 History sodium bicar
[2020-08-15 14:00] VITALS: BP 135/33; PULSE 60; RESP 20; TEMP 37.1; O2SAT 98
--- NOTE | 2020-08-15 14:00 | WPDREHABHP ---
H&P: HPI History of Present Illness Date/Time: 08/15/20 14:00 Chief Complaint: brain dysfunction traumatic in nature Narrative: Pasquale Hernandez is a 84 year old male HISTORY OF PRESENT ILLNESS: The patient's primary rehab impairment category is brain dysfunction traumatic in nature The etiologic diagnosis is subarachnoid hemorrhage of the basilar cistern I saw this patient [id number] on August 15, 2020 at 11:30 a.m. The patient is a 84 years old right-handed male with past medical history of hypertension, hyperlipidemia, coronary artery disease, aortic valve replacement, chronic kidney disease, renal artery stenosis, sleep apnea, spinal stenosis who presented to [facility] following a syncopal fall. Patient reported falling backwards while walking away from the bathroom. The patient landed on the occipital part of the head and lost consciousness. The next thing the patient remembered is being at [facility]. There was no prodrome prior. Upon ER arrival with EMS the patient was bradycardiac 2230 heart rate EKG initially showed complete heart block with a rate of 20 and then the patient spontaneously converted and subsequent EKG revealed sinus rhythm with 1st degree block and left bundle branch block at a rate of [address] scan of the head revealed small subarachnoid hemorrhage of the basilar cistern and the chronic left frontal lobe lacunar infarct. CT of the cervical spine was negative. The patient was transferred to [facility] for further neurosurgical intervention and cardiological management. Neurosurgical service was consulted and the patient underwent hourly neurological checks and repeated its head CT scan revealed expected evolution of the small volume subarachnoid hemorrhage. On August 07, 2020 the patient received 2units of platelets for thrombocytopenia and DA PT. He was COVID negative started on cefepime for urinary tract infection. Chicken Hanger and application manager were consulted and deemed the patient in need of a pacemaker. On August 09, 2020 the patient underwent permanent pacemaker placement and also received 2units of platelet on August 12, 2020 the patient reveals CV 2units of platelets with resulting platelet count of 1 1 9 DVT prophylaxis was initially held given the patient's low platelet count but patient was started on fondaparinux for DVT prophylaxis on August 12, 2020 he is to resume aspirin on August 21, 2020 and his Plavix will be held up until follow-up he is at the time of admission here awake alert oriented x4 #COVID the patient has not traveled outside the [place] or head contact with someone who is ill that has traveled outside the [place] in the past 21 days. The patient has not traveled to an area of the [place] that is experiencing known transmission of the Coronavirus and has not had close personal contact with anyone that has. The patient does not have a fever. The patient is not experiencing lower respiratory illness symptoms. Negative COVID test noted on August 07, 2020 [facility] and the patient transferred to us from [facility] on August 14, 2020 FALLS OR SURGERIES: the patient has had no major surgery in the last 100 days. The patient has had falls in the past year. The patient has had falls with injury in the past year that his fall on August 07, 2020 causing intracranial hemorrhage. 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 PAST SURGICAL HISTORY: Aortic valve replacement in September of 2019 [id number], colectomy partial followed by total, left knee arthroscopy, rectal
[2020-08-15 20:00] VITALS: PULSE 62; RESP 20; O2SAT 99
[2020-08-15 21:03] VITALS: PULSE 60
[2020-08-15] MEDS: ACETAMINOPHEN 325 MG TABLET 650 MG PO (21:08)
[2020-08-15 22:00] VITALS: BP 178/63; PULSE 62; RESP 20; TEMP 36.8; O2SAT 99
[2020-08-16] MEDS: traMADol HCL (*CRX) 50 MG TABLET PO ×2 (02:09→21:24)
[2020-08-16 06:00] VITALS: BP 167/58; PULSE 59; RESP 20; TEMP 36.4; O2SAT 97
[2020-08-16] MEDS: GABAPENTIN 300 MG CAPSULE PO ×2 (08:25→12:58)
[2020-08-16] MEDS: FONDAPARINUX SODIUM 2.5 MG/0.5 ML SYRINGE SUB-Q (08:25)
[2020-08-16] MEDS: PRAVASTATIN SODIUM 20 MG TABLET 80 MG PO (08:25)
[2020-08-16] MEDS: SODIUM BICARBONATE TAB 650 MG TABLET PO ×2 (08:25→17:17)
[2020-08-16] MEDS: FAMOTIDINE 20 MG TABLET PO ×2 (08:26→20:07)
[2020-08-16 08:27] VITALS: PULSE 60
[2020-08-16] MEDS: CYANOCOBALAMIN 1,000 MCG TABLET 1000 MCG PO (08:27)
[2020-08-16] MEDS: amLODIPine BESYLATE 5 MG TABLET 10 MG PO (08:27)
[2020-08-16] MEDS: TAMSULOSIN HCL 0.4 MG CAPSULE PO (08:27)
[2020-08-16] MEDS: carvediloL 12.5 MG TABLET PO ×2 (08:27→20:06)
[2020-08-16] MEDS: lisinopriL 10 MG TABLET PO (08:27)
[2020-08-16] MEDS: DOCUSATE SODIUM 100 MG CAPSULE PO (08:29)
[2020-08-16] MEDS: ACETAMINOPHEN 325 MG TABLET 650 MG PO (08:31)
--- NOTE | 2020-08-16 09:09 | RPD ---
INDIVIDUALIZED PLAN OF CARE FOR Pasquale Hernandez Brief Synthesis of Pre-Admission Screen, Post-Admission Evaluation and Therapy Evaluations: The patient presents to rehab with subarachnoid hemorrhage of the basilar cistern. Comorbidities include syncope, chronic kidney disease, colitis, diverticulitis, hearing loss, hyperlipidemia, hypertension, prostate cancer, sleep apnea, spinal stenosis, ventral hernia, 1st degree heart block, and left bundle branch block. This patient requires intensive therapies to restore lost function in order to maximize their functional level of independence and quality of life. The complexity of the patient's medical management, nursing, and therapy needs require an inpatient rehab hospital stay with a physician-led interdisciplinary team approach. The patient?s needs will be best met in an intensive program vs. at a lower level of care. The patient requires physician services for neurology services, medical oversight, and coordination of care. The patient needs physician monitoring and treatment of thrombocytopenia, new pacemaker placement, monitoring for adverse reactions to new medications, monitoring of infection, and pain control. The patient requires nursing services for frequent neuro checks, anticoagulation therapy, medication management and education, pressure relief and skin care management, monitoring of labs, bladder training, IV administration, and fall/safety precautions. Deficits include:ADLs, Balance, Endurance, Family Training/Education, Mobility, Pain Management, ROM, Safety, Strength, and Transfers Pattern Grader Cutter/Case Management for: Discharge Planning and Patient/Family Counseling Physical Therapy: 5 days per week for 90 minutes. Treatments may include: Therapeutic Exercise, Gait Training, Neuromuscular Re-education, Transfer Training, Community Reintegration, Bed Mobility, Patient/Family Education, Wheelchair Mobility Group Therapy/Concurrent Therapy Rationales: -Improve attention span during functional activities in a distracted environment. -Enhance problem solving and/or adequate judgment skills during functional activities in a distracted environment. -Promote increased safety awareness in a distracted environment to reduce fall risk with functional tasks, transfers, and ambulation to allow a more safe, self-sufficient return to the home environment. -Improve dynamic balance skills to promote safety and independence with functional activities in a distracted environment for maximum gain. Occupational Therapy: 5 days per week for 90 minutes. Treatments may include: Therapeutic Exercise, Therapeutic Activity, Cognitive Training, Self-Care Transfer Training, Community Reintegration, Home Management, Patient/Family Education, Wheelchair Mobility Training, Energy Conservation Training Group Therapy/Concurrent Therapy Rationales: -Allow therapist to observe and teach generalization and carry-over of skills learned in individual therapy. -Enhance problem solving and sequencing skills during therapeutic activities in a distracted environment. -Promote increased safety awareness in a realistic setting to reduce fall risk with functional tasks due to visual and verbal distractions. -Increase functional level with ADLs, ADL transfers and use of adaptive equipment through therapeutic activities with others while promoting safety to allow a more safe, self-sufficient return home. Medical Prognosis: Good Anticipated Length of Stay: 7 days Rehab Goals: Eating Goal: 06-Independent Oral Hygiene Goal: 06-Independent Toileting Hygiene Goal: 06-Independent Shower/Bathe Self Goal: 04-Supervision or Touching Assistance Upper Body Dressing Goal: 05-Setup or Clean Up Assistance Lower Body Dressing Goal: 05-Setup or Clean Up Assistance Putting On/Taking Off Footwear Goal: 06-Independent Rolling Left and Right Goal: 06-Independent Sit to Lying Goal: 06-Independent Lying to Sitting on Side of Bed Goal: 06-Independent Sit to St
--- NOTE | 2020-08-16 11:43 | WPDNEURORHBP ---
Subjective Date/time seen: 08/16/20 11:43 84 years old has been admitted to rehab floor brain dysfunction traumatic in nature with subarachnoid hemorrhage involving the basilar cistern in addition to the history of 1. Hypertension 2. Hyperlipidemia 3. Coronary artery disease 4. Aortic valve replacement 6. Sleep apnea 7. C spinal stenosis. Since admission here he has remained afebrile blood pressure is somewhat fluctuating, CBC on 08/15 revealed hemoglobin of 10.8 platelet count 102, borderline sodium of 136 ,BUN 24. On today's visit he manifested the desire to take his gabapentin and tramadol at 8:00 a.m. so he can sleep better and the nurse was advised accordingly Review of Systems Review of Systems: All systems reviewed & are unremarkable except as noted in HPI and below Functional Status Ambulation Ability Ability to Ambulate 10 Feet: Minimum Assistance X 1 Ability to Ambulate 50 Feet With 2 Turns: Minimum Assistance X 1 Ability to Ambulate 150 Feet: Minimum Assistance X 1 Ambulation Assistive Devices: Walker, Wheeled Exam Narrative: Exam Narrative: on examination today he is awake alert, his speech nor dysphasic not dysarthric, heart regular, lungs clear, abdomen is soft, and neurological examination is unchanged Objective Data Vital Signs Vital Signs: Vital Signs - 24 hr 08/15/20 14:00 08/15/20 20:00 08/15/20 21:03 Temperature 37.1 C Pulse Rate 60 62 60 Respiratory Rate 20 20 Blood Pressure 135/33 L Pulse Oximetry 98 99 08/15/20 22:00 08/16/20 06:00 08/16/20 08:27 Temperature 36.8 C 36.4 C Pulse Rate 62 59 L 60 Respiratory Rate 20 20 Blood Pressure 178/63 H 167/58 H Pulse Oximetry 99 97 Intake/Output Intake/Output: Intake & Output 08/13/20 08/14/20 08/15/20 08/16/20 23:59 23:59 23:59 23:59 Intake Total 240 720 240 Balance 240 720 240 Meds/Results Medications: Active Medications Generic Name Dose Route Start Last Admin Trade Name Freq PRN Reason Stop Dose Admin Acetaminophen 650 mg 08/14/20 18:34 08/16/20 08:31 Acetaminophen 325 Mg Tablet PO 650 mg Q8H PRN Administration Pain (Scale Score 1-3) Amlodipine Besylate 10 mg 08/15/20 09:00 08/16/20 08:27 Amlodipine Besylate 5 Mg Tablet PO 10 mg DAILY [facility] Administration Bisacodyl 10 mg 08/14/20 18:34 Bisacodyl 10 Mg Suppository RECTAL DAILY PRN Constipation Carvedilol 12.5 mg 08/14/20 21:00 08/16/20 08:27 Carvedilol 12.5 Mg Tablet PO 12.5 mg Q12HR [facility] Administration Cyanocobalamin 1,000 mcg 08/15/20 09:00 08/16/20 08:27 Cyanocobalamin 1,000 Mcg Tablet PO 1,000 mcg DAILY [facility] Administration Docusate Sodium 100 mg 08/14/20 17:00 08/16/20 08:29 Docusate Sodium 100 Mg Capsule PO 100 mg BID [facility] Administration Famotidine 20 mg 08/14/20 21:00 08/16/20 08:26 Famotidine 20 Mg Tablet PO 20 mg Q12HR [facility] Administration Ferrous Sulfate 324 mg 08/15/20 08:00 08/15/20 08:40 Ferrous Sulfate 324 Mg Tablet PO 324 mg [id number] [facility] Administration Fondaparinux 2.5 mg 08/15/20 09:00 08/16/20 08:25 Fondaparinux Sodium 2.5 Mg/0.5 Ml Syringe SUB-Q 2.5 mg DAILY [facility] Administration Furosemide 20 mg 08/14/20 19:25 Furosemide 20 Mg Tablet PO DAILY PRN Edema Gabapentin 300 mg 08/14/20 17:00 08/16/20 08:25 Gabapentin 300 Mg Capsule PO 300 mg TID [facility] Administration Lisinopril 10 mg 08/15/20 09:00 08/16/20 08:27 Lisinopril 10 Mg Tablet PO 10 mg DAILY [facility] Administration Ondansetron HCl 4 mg 08/15/20 10:22 Ondansetron Hcl Odt 4 Mg Tablet PO Q6H PRN Nausea And Vomiting Polyethylene Glycol 17 gm 08/15/20 09:00 08/16/20 08:28 Polyethylene Glycol 3350 17 Gm Powd.Pack PO Not Given DAILY [facility] Pravastatin Sodium 80 mg 08/15/20 09:00 08/16/20 08:25 Pravastatin Sodium 20 Mg Tablet PO 80 mg DAILY [facility] Administration Senna 8.6 mg 08/14/20 17:00 08/16/20 08:28 Sennosides 8.6 Mg
[2020-08-16 14:00] VITALS: BP 135/42; PULSE 60; RESP 20; TEMP 35.9; O2SAT 98
[2020-08-16 19:55] VITALS: BP 167/58; PULSE 64; RESP 16; TEMP 36.9; O2SAT 98
[2020-08-16 20:06] VITALS: PULSE 64
[2020-08-16] MEDS: GABAPENTIN 300 MG CAPSULE 600 MG PO (21:24)
[2020-08-17 05:22] VITALS: BP 142/44; PULSE 59; RESP 18; TEMP 36.6; O2SAT 96
[2020-08-17] MEDS: GABAPENTIN 300 MG CAPSULE PO ×2 (06:19→12:38)
[2020-08-17] MEDS: amLODIPine BESYLATE 5 MG TABLET 10 MG PO (07:35)
[2020-08-17] MEDS: traMADol HCL (*CRX) 50 MG TABLET PO ×3 (07:38→20:23)
[2020-08-17] MEDS: PRAVASTATIN SODIUM 20 MG TABLET 80 MG PO (07:40)
[2020-08-17] MEDS: CYANOCOBALAMIN 1,000 MCG TABLET 1000 MCG PO (07:41)
[2020-08-17] MEDS: SENNOSIDES 8.6 MG TABLET PO ×2 (07:41→16:08)
[2020-08-17] MEDS: FAMOTIDINE 20 MG TABLET PO ×2 (07:42→20:23)
[2020-08-17] MEDS: SODIUM BICARBONATE TAB 650 MG TABLET PO ×2 (07:42→16:06)
[2020-08-17] MEDS: lisinopriL 10 MG TABLET PO (07:42)
[2020-08-17] MEDS: TAMSULOSIN HCL 0.4 MG CAPSULE PO (07:42)
[2020-08-17] MEDS: FERROUS SULFATE 324 MG TABLET PO (07:42)
[2020-08-17] MEDS: carvediloL 12.5 MG TABLET PO ×2 (07:43→20:22)
[2020-08-17] MEDS: polyethylene glycoL 3350 17 GM POWD.PACK PO (07:43)
[2020-08-17] MEDS: DOCUSATE SODIUM 100 MG CAPSULE PO ×2 (07:43→16:08)
[2020-08-17] MEDS: FONDAPARINUX SODIUM 2.5 MG/0.5 ML SYRINGE SUB-Q (07:44)
[2020-08-17 08:00] VITALS: PULSE 59; RESP 18; O2SAT 96
--- NOTE | 2020-08-17 13:31 | WPDNEURORHBP ---
Subjective Date/time seen: 08/17/20 13:31 24 years old admitted to the rehab floor for brain dysfunction which is traumatic in nature with subarachnoid hemorrhage particularly involving the basilar cisterns in addition to the ongoing history of 1. Hypertension 2. Hyperlipidemia 3. Coronary artery disease a 4 aortic valve replacement 5 sleep apnea .spinal stenosis. Patient remains afebrile. On today's examination he is feeling better his medication were adjusted yesterday to be given at 8:00 p.m. and sleeping much better. Review of Systems Review of Systems: All systems reviewed & are unremarkable except as noted in HPI and below Functional Status Ambulation Ability Ability to Ambulate 10 Feet: Contact Guard Ability to Ambulate 50 Feet With 2 Turns: Contact Guard Ability to Ambulate 150 Feet: Minimum Assistance X 1 Ambulation Assistive Devices: Walker, Wheeled Exam Narrative: Exam Narrative: He is awake alert cooperative. Obviously hard of hearing but follows the all the instruction appropriately. Ear nose throat examination normal. Neck is supple. Heart regular. Lungs clear. And neurological examination unchanged Objective Data Vital Signs Vital Signs: Vital Signs - 24 hr 08/16/20 14:00 08/16/20 19:55 08/16/20 20:06 Temperature 35.9 C L 36.9 C Pulse Rate 60 64 64 Respiratory Rate 20 16 Blood Pressure 135/42 L 167/58 H Pulse Oximetry 98 98 08/17/20 05:22 08/17/20 08:00 Temperature 36.6 C Pulse Rate 59 L 59 L Respiratory Rate 18 18 Blood Pressure 142/44 H Pulse Oximetry 96 96 Intake/Output Intake/Output: Intake & Output 08/14/20 08/15/20 08/16/20 08/17/20 23:59 23:59 23:59 23:59 Intake Total 240 720 480 480 Balance 240 720 480 480 Meds/Results Medications: Active Medications Generic Name Dose Route Start Last Admin Trade Name Freq PRN Reason Stop Dose Admin Acetaminophen 650 mg 08/14/20 18:34 08/16/20 08:31 Acetaminophen 325 Mg Tablet PO 650 mg Q8H PRN Administration Pain (Scale Score 1-3) Amlodipine Besylate 10 mg 08/15/20 09:00 08/17/20 07:35 Amlodipine Besylate 5 Mg Tablet PO 10 mg DAILY [facility] Administration Bisacodyl 10 mg 08/14/20 18:34 Bisacodyl 10 Mg Suppository RECTAL DAILY PRN Constipation Carvedilol 12.5 mg 08/14/20 21:00 08/17/20 07:43 Carvedilol 12.5 Mg Tablet PO 12.5 mg Q12HR [facility] Administration Cyanocobalamin 1,000 mcg 08/15/20 09:00 08/17/20 07:41 Cyanocobalamin 1,000 Mcg Tablet PO 1,000 mcg DAILY [facility] Administration Docusate Sodium 100 mg 08/14/20 17:00 08/17/20 07:43 Docusate Sodium 100 Mg Capsule PO 100 mg BID [facility] Administration Famotidine 20 mg 08/14/20 21:00 08/17/20 07:42 Famotidine 20 Mg Tablet PO 20 mg Q12HR [facility] Administration Ferrous Sulfate 324 mg 08/15/20 08:00 08/17/20 07:42 Ferrous Sulfate 324 Mg Tablet PO 324 mg [id number] [facility] Administration Fondaparinux 2.5 mg 08/15/20 09:00 08/17/20 07:44 Fondaparinux Sodium 2.5 Mg/0.5 Ml Syringe SUB-Q 2.5 mg DAILY [facility] Administration Furosemide 20 mg 08/14/20 19:25 Furosemide 20 Mg Tablet PO DAILY PRN Edema Gabapentin 300 mg 08/16/20 13:00 08/17/20 12:38 Gabapentin 300 Mg Capsule PO 300 mg 0600,1300 [facility] Administration Gabapentin 600 mg 08/16/20 21:00 08/16/20 21:24 Gabapentin 300 Mg Capsule PO 600 mg HS [facility] Administration Lisinopril 10 mg 08/15/20 09:00 08/17/20 07:42 Lisinopril 10 Mg Tablet PO 10 mg DAILY [facility] Administration Ondansetron HCl 4 mg 08/15/20 10:22 Ondansetron Hcl Odt 4 Mg Tablet PO Q6H PRN Nausea And Vomiting Polyethylene Glycol 17 gm 08/15/20 09:00 08/17/20 07:43 Polyethylene Glycol 3350 17 Gm Powd.Pack PO 17 gm DAILY [facility] Administration Pravastatin Sodium 80 mg 08/15/20 09:00 08/17/20 07:40 Pravastatin Sodium 20 Mg Tablet PO 80 mg DAILY [facility] Administration Senna 8.6 mg 08/14/20 17:00 08/17/20 07
[2020-08-17 14:00] VITALS: BP 120/59; PULSE 60; RESP 18; TEMP 36.6; O2SAT 100
[2020-08-17 20:00] VITALS: PULSE 59; RESP 14; O2SAT 95
[2020-08-17 20:22] VITALS: PULSE 59
[2020-08-17] MEDS: GABAPENTIN 300 MG CAPSULE 600 MG PO (20:22)
[2020-08-17 20:37] VITALS: BP 124/43; PULSE 59; RESP 14; TEMP 36.7; O2SAT 95
[2020-08-18] VITALS (8 sets, daily range): BP systolic 138–166; BP diastolic 46–54; PULSE 59–78; RESP 18–19; TEMP 36.2–37.2; O2SAT 93–97
[2020-08-18] MEDS: GABAPENTIN 300 MG CAPSULE PO ×2 (06:15→13:00)
[2020-08-18] MEDS: DOCUSATE SODIUM 100 MG CAPSULE PO ×2 (08:50→17:16)
[2020-08-18] MEDS: TAMSULOSIN HCL 0.4 MG CAPSULE PO (08:51)
[2020-08-18] MEDS: SODIUM BICARBONATE TAB 650 MG TABLET PO ×2 (08:51→17:17)
[2020-08-18] MEDS: CYANOCOBALAMIN 1,000 MCG TABLET 1000 MCG PO (08:51)
[2020-08-18] MEDS: amLODIPine BESYLATE 5 MG TABLET 10 MG PO (08:51)
[2020-08-18] MEDS: carvediloL 12.5 MG TABLET PO ×2 (08:51→20:39)
[2020-08-18] MEDS: PRAVASTATIN SODIUM 20 MG TABLET 80 MG PO (08:51)
[2020-08-18] MEDS: FAMOTIDINE 20 MG TABLET PO ×2 (08:51→20:38)
[2020-08-18] MEDS: lisinopriL 10 MG TABLET PO (08:52)
[2020-08-18] MEDS: FONDAPARINUX SODIUM 2.5 MG/0.5 ML SYRINGE SUB-Q (08:53)
[2020-08-18] MEDS: SENNOSIDES 8.6 MG TABLET PO ×2 (08:53→17:16)
[2020-08-18] MEDS: polyethylene glycoL 3350 17 GM POWD.PACK PO (08:53)
[2020-08-18] MEDS: traMADol HCL (*CRX) 50 MG TABLET PO ×2 (08:57→20:39)
[2020-08-18] MEDS: GABAPENTIN 300 MG CAPSULE 600 MG PO (20:39)
[2020-08-19 05:45] VITALS: BP 168/55; PULSE 60; RESP 22; TEMP 36.4; O2SAT 97
[2020-08-19] MEDS: GABAPENTIN 300 MG CAPSULE PO ×2 (05:45→12:37)
[2020-08-19] MEDS: traMADol HCL (*CRX) 50 MG TABLET PO ×2 (08:42→21:03)
[2020-08-19] MEDS: amLODIPine BESYLATE 5 MG TABLET 10 MG PO (08:44)
[2020-08-19 08:45] VITALS: PULSE 70
[2020-08-19] MEDS: carvediloL 12.5 MG TABLET PO ×2 (08:45→21:02)
[2020-08-19] MEDS: CYANOCOBALAMIN 1,000 MCG TABLET 1000 MCG PO (08:45)
[2020-08-19] MEDS: DOCUSATE SODIUM 100 MG CAPSULE PO ×2 (08:46→17:44)
[2020-08-19] MEDS: FAMOTIDINE 20 MG TABLET PO ×2 (08:46→21:03)
[2020-08-19] MEDS: FONDAPARINUX SODIUM 2.5 MG/0.5 ML SYRINGE SUB-Q (08:46)
[2020-08-19] MEDS: lisinopriL 10 MG TABLET PO (08:47)
[2020-08-19] MEDS: polyethylene glycoL 3350 17 GM POWD.PACK PO (08:47)
[2020-08-19] MEDS: PRAVASTATIN SODIUM 20 MG TABLET 80 MG PO (08:47)
[2020-08-19] MEDS: SENNOSIDES 8.6 MG TABLET PO ×2 (08:48→17:45)
[2020-08-19] MEDS: SODIUM BICARBONATE TAB 650 MG TABLET PO ×2 (08:49→17:44)
[2020-08-19] MEDS: TAMSULOSIN HCL 0.4 MG CAPSULE PO (08:49)
--- NOTE | 2020-08-19 11:59 | WPDNEURORHBP ---
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 Hypertension 2. Hyperlipidemia 3. Coronary artery disease 4. Aortic valve replacement 5. Sleep apnea 6 spinal stenosis. He is afebrile with temp of 36.4? respiration 22 pulse rate 60 blood pressure 168/55. No recent lab and medications are unchanged. Review of Systems Review of Systems: All systems reviewed & are unremarkable except as noted in HPI and below Functional Status Ambulation Ability Ability to Ambulate 10 Feet: Contact Guard Ability to Ambulate 50 Feet With 2 Turns: Contact Guard Ability to Ambulate 150 Feet: Contact Guard Ambulation Assistive Devices: Walker, Wheeled Transfers Ability Ability to Transfer In/Out of Chair: Contact Guard Exam Narrative: Exam Narrative: On examination he is awake alert cooperative, head normocephalic, neck supple, heart regular, lungs clear with no rhonchi or crepitations, abdomen nontender normal bowel sounds, and neurological examination unchanged Objective Data Vital Signs Vital Signs: Vital Signs - 24 hr 08/18/20 14:49 08/18/20 20:15 08/18/20 20:39 Temperature 36.2 C L 36.3 C L Pulse Rate 60 65 65 Respiratory Rate 19 18 Blood Pressure 143/46 H 166/54 H Pulse Oximetry 95 97 08/18/20 22:30 08/18/20 22:34 08/19/20 05:45 Temperature 36.4 C L Pulse Rate 65 78 60 Respiratory Rate 18 22 H Blood Pressure 168/55 H Pulse Oximetry 97 93 97 08/19/20 08:45 Temperature Pulse Rate 70 Respiratory Rate Blood Pressure Pulse Oximetry Intake/Output Intake/Output: Intake & Output 08/16/20 08/17/20 08/18/20 08/19/20 23:59 23:59 23:59 23:59 Intake Total 480 720 480 Output Total 750 Balance 480 720 -270 Meds/Results Medications: Active Medications Generic Name Dose Route Start Last Admin Trade Name Freq PRN Reason Stop Dose Admin Acetaminophen 650 mg 08/14/20 18:34 08/16/20 08:31 Acetaminophen 325 Mg Tablet PO 650 mg Q8H PRN Administration Pain (Scale Score 1-3) Amlodipine Besylate 10 mg 08/15/20 09:00 08/19/20 08:44 Amlodipine Besylate 5 Mg Tablet PO 10 mg DAILY TRISTAN Administration Bisacodyl 10 mg 08/14/20 18:34 Bisacodyl 10 Mg Suppository RECTAL DAILY PRN Constipation Carvedilol 12.5 mg 08/14/20 21:00 08/19/20 08:45 Carvedilol 12.5 Mg Tablet PO 12.5 mg Q12HR TRISTAN Administration Cyanocobalamin 1,000 mcg 08/15/20 09:00 08/19/20 08:45 Cyanocobalamin 1,000 Mcg Tablet PO 1,000 mcg DAILY TRISTAN Administration Docusate Sodium 100 mg 08/14/20 17:00 08/19/20 08:46 Docusate Sodium 100 Mg Capsule PO 100 mg BID TRISTAN Administration Famotidine 20 mg 08/14/20 21:00 08/19/20 08:46 Famotidine 20 Mg Tablet PO 20 mg Q12HR TRISTAN Administration Ferrous Sulfate 324 mg 08/15/20 08:00 08/17/20 07:42 Ferrous Sulfate 324 Mg Tablet PO 324 mg [email or web address] [facility] Administration Fondaparinux 2.5 mg 08/15/20 09:00 08/19/20 08:46 Fondaparinux Sodium 2.5 Mg/0.5 Ml Syringe SUB-Q 2.5 mg DAILY TRISTAN Administration Furosemide 20 mg 08/14/20 19:25 Furosemide 20 Mg Tablet PO DAILY PRN Edema Gabapentin 300 mg 08/16/20 13:00 08/19/20 05:45 Gabapentin 300 Mg Capsule PO 300 mg 0600,1300 TRISTAN Administration Gabapentin 600 mg 08/16/20 21:00 08/18/20 20:39 Gabapentin 300 Mg Capsule PO 600 mg HS [facility] Administration Lisinopril 10 mg 08/15/20 09:00 08/19/20 08:47 Lisinopril 10 Mg Tablet PO 10 mg DAILY TRISTAN Administration Ondansetron HCl 4 mg 08/15/20 10:22 Ondansetron Hcl Odt 4 Mg Tablet PO Q6H PRN Nausea And Vomiting Polyethylene Glycol 17 gm 08/15/20 09:00 08/19/20 08:47 Polyethylene Glycol 3350 17 Gm Powd.Pack PO 17 gm DAILY TRISTAN Administration Pravastatin Sodium 80 mg
[2020-08-19 14:00] VITALS: BP 148/54; PULSE 59; RESP 17; TEMP 36.2; O2SAT 99
--- NOTE | 2020-08-19 14:50 | PC.NURSE ---
Late entry. Patient straight cathed himself this morning with therapy and output was 1000mls.
--- NOTE | 2020-08-19 18:49 | PC.NURSE ---
Straight cathed patient with 500 mls clear urine output.
--- NOTE | 2020-08-19 19:02 | PC.NURSE ---
Patient had large amount of soft brown stool.
[2020-08-19 21:02] VITALS: PULSE 80
[2020-08-19] MEDS: GABAPENTIN 300 MG CAPSULE 600 MG PO (21:03)
[2020-08-19 22:00] VITALS: BP 156/58; PULSE 80; RESP 20; TEMP 36.4; O2SAT 99
[2020-08-20] VITALS (7 sets, daily range): BP systolic 144–164; BP diastolic 48–56; PULSE 59–65; RESP 12–20; TEMP 36.2–36.6; O2SAT 95–100
[2020-08-20] MEDS: GABAPENTIN 300 MG CAPSULE PO ×2 (05:25→12:44)
[2020-08-20] MEDS: FERROUS SULFATE 324 MG TABLET PO (08:22)
[2020-08-20] MEDS: traMADol HCL (*CRX) 50 MG TABLET PO ×2 (08:26→21:23)
[2020-08-20] MEDS: FAMOTIDINE 20 MG TABLET PO ×2 (08:58→21:22)
[2020-08-20] MEDS: amLODIPine BESYLATE 5 MG TABLET 10 MG PO (08:58)
[2020-08-20] MEDS: carvediloL 12.5 MG TABLET PO ×2 (08:59→21:22)
[2020-08-20] MEDS: TAMSULOSIN HCL 0.4 MG CAPSULE PO (08:59)
[2020-08-20] MEDS: PRAVASTATIN SODIUM 20 MG TABLET 80 MG PO (08:59)
[2020-08-20] MEDS: lisinopriL 10 MG TABLET PO (08:59)
[2020-08-20] MEDS: SODIUM BICARBONATE TAB 650 MG TABLET PO ×2 (08:59→17:06)
[2020-08-20] MEDS: CYANOCOBALAMIN 1,000 MCG TABLET 1000 MCG PO (09:00)
[2020-08-20] MEDS: SENNOSIDES 8.6 MG TABLET PO ×2 (09:00→17:06)
[2020-08-20] MEDS: FONDAPARINUX SODIUM 2.5 MG/0.5 ML SYRINGE SUB-Q (10:05)
[2020-08-20] MEDS: polyethylene glycoL 3350 17 GM POWD.PACK PO (10:08)
--- NOTE | 2020-08-20 11:30 | WPDNEURORHBP ---
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 Hypertension 2. Hyperlipidemia 3. Coronary artery disease 4. Aortic valve replacement 5. Sleep apnea 6. Spinal stenosis patient has remained afebrile with temp of 36.3? pulse of 59 and blood pressure 147/48 and respiration 20 pulse ox 95, no new lab Review of Systems Review of Systems: All systems reviewed & are unremarkable except as noted in HPI and below Functional Status Ambulation Ability Ability to Ambulate 10 Feet: Contact Guard Ability to Ambulate 50 Feet With 2 Turns: Contact Guard Ability to Ambulate 150 Feet: Contact Guard Ambulation Assistive Devices: Walker, Wheeled Transfers Ability Ability to Transfer In/Out of Chair: Contact Guard Exam Narrative: Exam Narrative: examination revealed him to be awake alert cooperative, ear nose throat examination normal, mucous membranes moist no rhinorrhea, heart regular with no murmur, lungs clear with no rhonchi or crepitation, abdomen soft nontender normal bowel sounds, Juan Ramon neurological examination unchanged Objective Data Vital Signs Vital Signs: Vital Signs - 24 hr 08/19/20 14:00 08/19/20 21:02 08/19/20 22:00 Temperature 36.2 C L 36.4 C Pulse Rate 59 L 80 80 Respiratory Rate 17 20 Blood Pressure 148/54 H 156/58 H Pulse Oximetry 99 99 08/20/20 05:23 08/20/20 08:59 Temperature 36.3 C L Pulse Rate 59 L 59 L Respiratory Rate 20 Blood Pressure 147/48 H Pulse Oximetry 95 Intake/Output Intake/Output: Intake & Output 08/17/20 08/18/20 08/19/20 08/20/20 23:59 23:59 23:59 23:59 Intake Total 720 480 240 Output Total 270 700 Balance 535 -512 -489 Meds/Results Medications: Active Medications Generic Name Dose Route Start Last Admin Trade Name Freq PRN Reason Stop Dose Admin Acetaminophen 650 mg 08/14/20 18:34 08/16/20 08:31 Acetaminophen 325 Mg Tablet PO 650 mg Q8H PRN Administration Pain (Scale Score 1-3) Amlodipine Besylate 10 mg 08/15/20 09:00 08/20/20 08:58 Amlodipine Besylate 5 Mg Tablet PO 10 mg DAILY TRISTAN Administration Bisacodyl 10 mg 08/14/20 18:34 Bisacodyl 10 Mg Suppository RECTAL DAILY PRN Constipation Carvedilol 12.5 mg 08/14/20 21:00 08/20/20 08:59 Carvedilol 12.5 Mg Tablet PO 12.5 mg Q12HR TRISTAN Administration Cyanocobalamin 1,000 mcg 08/15/20 09:00 08/20/20 09:00 Cyanocobalamin 1,000 Mcg Tablet PO 1,000 mcg DAILY TRISTAN Administration Docusate Sodium 100 mg 08/14/20 17:00 08/20/20 08:41 Docusate Sodium 100 Mg Capsule PO Not Given BID TRISTAN Famotidine 20 mg 08/14/20 21:00 08/20/20 08:58 Famotidine 20 Mg Tablet PO 20 mg Q12HR TRISTAN Administration Ferrous Sulfate 324 mg 08/15/20 08:00 08/20/20 08:22 Ferrous Sulfate 324 Mg Tablet PO 324 mg [email or web address] [facility]ST[facility] Administration Fondaparinux 2.5 mg 08/15/20 09:00 08/20/20 10:05 Fondaparinux Sodium 2.5 Mg/0.5 Ml Syringe SUB-Q 2.5 mg DAILY TRISTAN Administration Furosemide 20 mg 08/14/20 19:25 Furosemide 20 Mg Tablet PO DAILY PRN Edema Gabapentin 300 mg 08/16/20 13:00 08/20/20 05:25 Gabapentin 300 Mg Capsule PO 300 mg 0600,1300 [facility] Administration Gabapentin 600 mg 08/16/20 21:00 08/19/20 21:03 Gabapentin 300 Mg Capsule PO 600 mg HS TRISTAN Administration Lisinopril 10 mg 08/15/20 09:00 08/20/20 08:59 Lisinopril 10 Mg Tablet PO 10 mg DAILY TRISTAN Administration Ondansetron HCl 4 mg 08/15/20 10:22 Ondansetron Hcl Odt 4 Mg Tablet PO Q6H PRN Nausea And Vomiting Polyethylene Glycol 17 gm 08/15/20 09:00 08/20/20 10:08 Polyethylene Glycol 3350 17 Gm Powd.Pack PO 17 gm DAILY TRISTAN Administration Pravastatin Sodium 80 mg 08/15/20 09:00 08/20/20 08:59 Pravastatin Sodium 20 Mg
--- NOTE | 2020-08-20 13:10 | PCDIET ---
Nutrition Follow-Up Complete: Nutrition Diagnosis: Predicted suboptimal oral intake related to decreased appetite as evidenced by patient report on admission with intakes of 50% thus far. Nutrition Goal: Patient to consume 75% of meals/supplements or greater. Goal met. Patient consuming 100% of most meals on regular diet. Ensure Enlive continued once per day. Last recorded weight is 87.5 kg. Recommend obtaining new weight. Bowel Motility: Last documented BM on 08/19/20. Labs Reviewed: No new labs available. Meds Noted: Norvasc, Coreg, Vitamin B12, Pepcid, Ferrous Sulfate, Lisinopril, Miralax, Pravastatin, Senna, Sodium Bicarbonate Additional Notes: No pressure sores documented. Will continue to monitor with same goal. Nutrition Monitoring and Evaluation: Follow up every 7 days.
--- NOTE | 2020-08-20 15:51 | PCPTNOTE ---
Pasquale Hernandez was evaluated for a wheeled walker on 08/20/2020 by this physical therapist social work assistant. The wheeled walker will resolve patient's mobility limitations and will be used for ADL's within the home. The patient can safely use the wheeled walker. ?The wheeled walker will resolve the patient?s mobility deficits, including decreased endurance, decreased strength and impaired balance.
[2020-08-20] MEDS: GABAPENTIN 300 MG CAPSULE 600 MG PO (21:22)
[2020-08-21 05:18] VITALS: BP 152/39; PULSE 60; RESP 22; TEMP 37.2; O2SAT 96
[2020-08-21] MEDS: GABAPENTIN 300 MG CAPSULE PO ×2 (05:44→12:34)
[2020-08-21 06:45] VITALS: BP 134/60; PULSE 70; RESP 19; TEMP 36.1; O2SAT 95
[2020-08-21] MEDS: amLODIPine BESYLATE 5 MG TABLET 10 MG PO (08:36)
[2020-08-21] MEDS: FAMOTIDINE 20 MG TABLET PO ×2 (08:37→21:06)
[2020-08-21] MEDS: carvediloL 12.5 MG TABLET PO ×2 (08:37→21:07)
[2020-08-21] MEDS: DOCUSATE SODIUM 100 MG CAPSULE PO ×2 (08:37→16:27)
[2020-08-21] MEDS: CYANOCOBALAMIN 1,000 MCG TABLET 1000 MCG PO (08:37)
[2020-08-21] MEDS: lisinopriL 10 MG TABLET PO (08:38)
[2020-08-21] MEDS: PRAVASTATIN SODIUM 20 MG TABLET 80 MG PO (08:38)
[2020-08-21] MEDS: SODIUM BICARBONATE TAB 650 MG TABLET PO ×2 (08:38→16:27)
[2020-08-21] MEDS: FONDAPARINUX SODIUM 2.5 MG/0.5 ML SYRINGE SUB-Q (08:38)
[2020-08-21] MEDS: TAMSULOSIN HCL 0.4 MG CAPSULE PO (08:38)
[2020-08-21] MEDS: polyethylene glycoL 3350 17 GM POWD.PACK PO (08:38)
[2020-08-21] MEDS: SENNOSIDES 8.6 MG TABLET PO ×2 (08:38→16:27)
--- NOTE | 2020-08-21 10:47 | WPDNEURORHBP ---
Subjective Date/time seen: 08/21/20 10:47 84 years old admitted to the rehab with traumatic brain dysfunction resulting in subarachnoid hemorrhage in addition to ongoing history of multiple medical problems as outlined has no new lab with temperature of 37.2? pulse 60 respirations 22 blood pressure 152/39 and no changes in the medication Review of Systems Review of Systems: All systems reviewed & are unremarkable except as noted in HPI and below Functional Status Ambulation Ability Ability to Ambulate 10 Feet: Contact Guard Ability to Ambulate 50 Feet With 2 Turns: Contact Guard Ability to Ambulate 150 Feet: Contact Guard Ambulation Assistive Devices: Walker, Wheeled Transfers Ability Ability to Transfer In/Out of Chair: Contact Guard Exam Narrative: Exam Narrative: Const: General: cooperative and comfortable Nutritional Appearance: average body habitus Orientation/consciousness: patient oriented x3 Limitations: other limitations (hearing) HENMT: Head: normal to inspection Ears: hearing grossly impaired General nose exam: Normal external nose present and No nasal discharge present Face and sinus: normal facial exam Mouth: Yes Normal oral and palatal mucosa present Eyes: General: appearance normal, both eyes and all related structures Alignment and Position: alignment normal Eyelids: eyelids normal Sclera: sclerae normal Cornea: corneas normal Pupils: Equal, round and reactive pupils present EOM: EOMs intact bilaterally Neck: Neck: full ROM Resp: Effort & Inspection: normal respiratory effort Cardio: Jugular venous distension: no JVD GI: Auscultation: normal bowel sounds Skin: General skin exam: no rashes or lesions noted Neuro: General: patient oriented x3 and moves all extremities Cranial nerves: Yes Equal, round and reactive pupils present, Yes Nystagmus not present, Yes Midline tongue present, Yes hard of hearing and Yes Ability to bilaterally elevate shoulders present Cognition (Neuro): normal cognition Speech: normal speech Gait exam (Neuro): Wide-based gait present and Assistive device used Sensory Exam: normal sensation Deep tendon reflexes (DTR's): Right triceps reflex intensity grade: 1+, Left triceps reflex intensity grade: 1+, Rt Biceps (C5, C6): 1+, Left biceps reflex intensity grade: 1+, Right brachioradialis reflex intensity grade: 1+, Left brachioradialis reflex intensity grade: 1+, Right patellar reflex intensity grade: 1+, Left patellar reflex intensity grade: 1+, Right ankle reflex intensity grade: 1+ and Left ankle reflex intensity grade: 1+ Plantar Reflex Responses: downgoing: bilateral Objective Data Vital Signs Vital Signs: Vital Signs - 24 hr 08/20/20 11:45 08/20/20 14:10 08/20/20 20:29 Temperature 36.2 C L 36.6 C Pulse Rate 59 L 60 65 Respiratory Rate 20 12 18 Blood Pressure 144/54 H 164/56 H Pulse Oximetry 95 100 96 08/20/20 21:22 08/21/20 05:18 Temperature 37.2 C Pulse Rate 65 60 Respiratory Rate 22 H Blood Pressure 152/39 H Pulse Oximetry 96 Intake/Output Intake/Output: Intake & Output 08/18/20 08/19/20 08/20/20 08/21/20 23:59 23:59 23:59 23:59 Intake Total 480 240 300 220 Output Total 903 679 8284 550 Balance -270 -460 -2000 -330 Meds/Results Medications: Active Medications Generic Name Dose Route Start Last Admin Trade Name Freq PRN Reason Stop Dose Admin Acetaminophen 650 mg 08/14/20 18:34 08/16/20 08:31 Acetaminophen 325 Mg Tablet PO 650 mg Q8H PRN Administration Pain (Scale Score 1-3) Amlodipine Besylate 10 mg 08/15/20 09:00 08/21/20 08:36 Amlodipine Besylate 5 Mg Tablet PO 10 mg DAILY TRISTAN Administration Bisacodyl 10 mg 08/14/20 18:34 Bisacodyl 10 Mg Suppository RECTAL DAILY PRN Constipation Carvedilol 12.5 mg 08/14/20 21:00 08/21/20 08:37 Carvedilol 12.5 Mg Tablet PO 12.5 mg Q12HR TRISTAN Administration Cyanocobalamin 1,000 mcg 08/15/20 09:00 08/21/20 08:37 Cyanocobalamin 1,
[2020-08-21] MEDS: traMADol HCL (*CRX) 50 MG TABLET PO ×2 (12:36→21:07)
[2020-08-21 14:00] VITALS: BP 145/52; PULSE 58; RESP 16; TEMP 36.3; O2SAT 99
[2020-08-21 20:30] VITALS: PULSE 63; RESP 18; O2SAT 97
[2020-08-21] MEDS: GABAPENTIN 300 MG CAPSULE 600 MG PO (21:06)
[2020-08-21 21:07] VITALS: PULSE 68
[2020-08-21 22:00] VITALS: BP 159/62; PULSE 63; RESP 19; TEMP 36.3; O2SAT 97
[2020-08-22 05:33] LABS: Basophils Percent Auto 0.4 % (0.2-1.2); Eosinophils Absolute Auto 0.3 K/mm3 (0-0.3); Eosinophils Percent Auto 7.3 % (0-4.4); Hematocrit 30.3 % (42.0-52.0); Hemoglobin 10.3 g/dL (14.0-18.0); Immature Granulocyte Absolute 0.02 K/mm3 (0.00-0.031); Immature Granulocyte Percent A 0.4 % (0-0.5); Immature Platelet Fraction Pct 3.6 % (0.9-11.2); Lymphocytes Absolute Auto 1.32 K/mm3 (0.9-3.2); Lymphocytes Percent Auto 29.3 % (18.3-44.2); Mean Corpuscular Hemoglobin 31.1 pg (26-34); Mean Corpuscular Volume 91.5 fl (80-100); Mean Platelet Volume 10.1 fl (7.4-10.4); Monocytes Absolute Auto 0.4 K/mm3 (0.1-0.6); Monocytes Percent Auto 9.1 % (2.6-8.5); Neutrophils Absolute Auto 2.4 K/mm3 (1.3-6.7); Neutrophils Percent Auto 53.5 % (45.5-73.1); Platelet Count Result 117 k/mm3 (150-375); Red Blood Count 3.31 M/mm3 (4.6-6.20); Red Cell Distribution Width 13.2 % (11.5-14.5); White Blood Count 4.5 K/mm3 (4.5-10.0)
[2020-08-22 05:52] LABS: Anion Gap 5 mmol/L (8-16); Blood Urea Nitrogen 23 mg/dL (9-20); Calcium 9.1 mg/dL (8.4-10.2); Carbon Dioxide 30 mmol/L (22-30); Chloride 104 mmol/L (98-107); Estimated CRCL calculation 36 ml/min; Estimated Glomerular Filt Rate 45; Glucose 81 mg/dL (75-110); Potassium 4.2 mmol/L (3.4-5.0); Sodium 139 mmol/L (137-145)
[2020-08-22] MEDS: GABAPENTIN 300 MG CAPSULE PO ×2 (06:13→13:09)
[2020-08-22 08:00] VITALS: PULSE 63; RESP 19; O2SAT 97
[2020-08-22] MEDS: DOCUSATE SODIUM 100 MG CAPSULE PO ×2 (08:35→16:40)
[2020-08-22] MEDS: FONDAPARINUX SODIUM 2.5 MG/0.5 ML SYRINGE SUB-Q (08:35)
[2020-08-22] MEDS: lisinopriL 10 MG TABLET PO (08:35)
[2020-08-22] MEDS: FAMOTIDINE 20 MG TABLET PO ×2 (08:35→20:43)
[2020-08-22] MEDS: CYANOCOBALAMIN 1,000 MCG TABLET 1000 MCG PO (08:35)
[2020-08-22] MEDS: PRAVASTATIN SODIUM 20 MG TABLET 80 MG PO (08:36)
[2020-08-22] MEDS: FERROUS SULFATE 324 MG TABLET PO (08:36)
[2020-08-22] MEDS: amLODIPine BESYLATE 5 MG TABLET 10 MG PO (08:36)
[2020-08-22] MEDS: SODIUM BICARBONATE TAB 650 MG TABLET PO ×2 (08:36→16:39)
[2020-08-22 08:47] VITALS: PULSE 63
[2020-08-22] MEDS: carvediloL 12.5 MG TABLET PO ×2 (08:47→20:42)
[2020-08-22] MEDS: polyethylene glycoL 3350 17 GM POWD.PACK PO (08:48)
[2020-08-22] MEDS: SENNOSIDES 8.6 MG TABLET PO ×2 (08:48→16:40)
[2020-08-22] MEDS: TAMSULOSIN HCL 0.4 MG CAPSULE PO (08:48)
[2020-08-22] MEDS: traMADol HCL (*CRX) 50 MG TABLET PO ×2 (10:28→20:43)
--- NOTE | 2020-08-22 11:12 | PC.NURSE ---
Patient straight caths self and will tell nursing when he feels the need to do it.
[2020-08-22 14:00] VITALS: BP 152/68; PULSE 78; RESP 20; TEMP 36.6; O2SAT 97
--- NOTE | 2020-08-22 15:09 | WPDNEURORHBP ---
Subjective Date/time seen: 08/22/20 15:09 84 years old with traumatic brain dysfunction and subarachnoid hemorrhage continues to be involved in the physical therapy and occupational therapy, routine lab with WBC is 4.5 hemoglobin 10.3 platelet count coming up to 117 normal chemistry and UA except for WBC 75 with leukocyte esterase positive and stool occult blood negative Review of Systems Review of Systems: All systems reviewed & are unremarkable except as noted in HPI and below Functional Status Ambulation Ability Ability to Ambulate 10 Feet: Contact Guard Ability to Ambulate 50 Feet With 2 Turns: Contact Guard Ability to Ambulate 150 Feet: Contact Guard Ambulation Assistive Devices: Walker, Wheeled Transfers Ability Ability to Transfer In/Out of Chair: Contact Guard Exam Const: General: cooperative, comfortable and no acute distress Nutritional Appearance: average body habitus Orientation/consciousness: patient oriented x3 Limitations: no limitations HENMT: Head: normocephalic Ears: hearing grossly impaired General nose exam: Normal external nose present and No nasal discharge present Face and sinus: normal facial exam Eyes: General: appearance normal, both eyes and all related structures Neck: Neck: full ROM Resp: Effort & Inspection: normal respiratory effort and able to speak in complete sentences Auscultation: clear to auscultation bilaterally Cardio: Jugular venous distension: no JVD Rate: regular rate GI: Auscultation: normal bowel sounds Skin: General skin exam: no rashes or lesions noted Neuro: General: patient oriented x3 and moves all extremities Cranial nerves: Yes CN's II-XII intact bilaterally, Yes Equal, round and reactive pupils present, Yes Nystagmus not present, Yes Normal facial strength present, Yes Midline tongue present, Yes Symmetric palate elevation present, Yes hard of hearing, Yes Ability to bilaterally rotate head present and Yes Ability to bilaterally elevate shoulders present Cognition (Neuro): normal cognition Speech: normal speech Motor exam (neuro): Normal motor muscle tone present throughout Sensory Exam: normal sensation Coordination: [id number] test normal Extrem: General: normal gait (abnormal gait) and Limp noted Right upper extremity: full ROM Left upper extremity: full ROM Left lower extremity: knee Other: deformity of knee joint Psych: Appearance: grossly normal Mental Status: mental status grossly normal Speech and movement: Normal speech and movement present Affect: normal affect Attitude: cooperative Thought process: Normal thought process present Thought content: Yes Normal thought content present Insight: Fair insight present (Psych) Judgement: Fair judgement present (Psych) Objective Data Vital Signs Vital Signs: Vital Signs - 24 hr 08/21/20 20:30 08/21/20 21:07 08/21/20 22:00 Temperature 36.3 C L Pulse Rate 63 68 63 Respiratory Rate 18 19 Blood Pressure 159/62 H Pulse Oximetry 97 97 08/22/20 08:00 08/22/20 08:47 08/22/20 14:00 Temperature 36.6 C Pulse Rate 63 63 78 Respiratory Rate 19 20 Blood Pressure 152/68 H Pulse Oximetry 97 97 Intake/Output Intake/Output: Intake & Output 08/19/20 08/20/20 08/21/20 08/22/20 23:59 23:59 23:59 23:59 Intake Total 240 300 700 480 Output Total 700 2300 970 420 Balance -460 -2000 -270 60 Meds/Results Medications: Active Medications Generic Name Dose Route Start Last Admin Trade Name Freq PRN Reason Stop Dose Admin Acetaminophen 650 mg 08/14/20 18:34 08/16/20 08:31 Acetaminophen 325 Mg Tablet PO 650 mg Q8H PRN Administration Pain (Scale Score 1-3) Amlodipine Besylate 10 mg 08/15/20 09:00 08/22/20 08:36 Amlodipine Besylate 5 Mg Tablet PO 10 mg DAILY TRISTAN Administration Bisacodyl 10 mg 08/14/20 18:34 Bisacodyl 10 Mg Suppository RECTAL DAILY PRN Constipation Carvedilol 12.5 mg 08/14/20 21:00 08/22/20 08:47 Carvedilol 12.5 Mg Ta
[2020-08-22 20:33] VITALS: BP 161/52; PULSE 60; RESP 20; TEMP 36.4; O2SAT 98
[2020-08-22 20:42] VITALS: PULSE 70
[2020-08-22] MEDS: GABAPENTIN 300 MG CAPSULE 600 MG PO (20:43)
[2020-08-23] MEDS: GABAPENTIN 300 MG CAPSULE PO ×2 (05:50→13:12)
[2020-08-23 05:55] VITALS: BP 186/61; PULSE 68; RESP 20; TEMP 37.1; O2SAT 97
[2020-08-23 06:14] VITALS: BP 177/65
[2020-08-23] MEDS: traMADol HCL (*CRX) 50 MG TABLET PO ×2 (09:42→20:37)
[2020-08-23] MEDS: polyethylene glycoL 3350 17 GM POWD.PACK PO (09:42)
[2020-08-23 09:43] VITALS: PULSE 68
[2020-08-23] MEDS: carvediloL 12.5 MG TABLET PO (09:43)
[2020-08-23] MEDS: amLODIPine BESYLATE 5 MG TABLET 10 MG PO (09:43)
[2020-08-23] MEDS: CYANOCOBALAMIN 1,000 MCG TABLET 1000 MCG PO (09:44)
[2020-08-23] MEDS: FAMOTIDINE 20 MG TABLET PO ×2 (09:44→20:36)
[2020-08-23] MEDS: FONDAPARINUX SODIUM 2.5 MG/0.5 ML SYRINGE SUB-Q (09:45)
[2020-08-23] MEDS: PRAVASTATIN SODIUM 20 MG TABLET 80 MG PO (09:45)
[2020-08-23] MEDS: SODIUM BICARBONATE TAB 650 MG TABLET PO ×2 (09:45→17:27)
[2020-08-23] MEDS: lisinopriL 10 MG TABLET PO (09:45)
[2020-08-23] MEDS: TAMSULOSIN HCL 0.4 MG CAPSULE PO (09:46)
[2020-08-23 14:00] VITALS: BP 115/50; PULSE 59; RESP 18; TEMP 36.2; O2SAT 100
[2020-08-23 20:36] VITALS: PULSE 72
[2020-08-23] MEDS: carvediloL 25 MG TABLET PO (20:36)
[2020-08-23] MEDS: GABAPENTIN 300 MG CAPSULE 600 MG PO (20:37)
[2020-08-23 22:00] VITALS: BP 157/68; PULSE 66; RESP 20; TEMP 36.2; O2SAT 98
[2020-08-24 06:00] VITALS: BP 140/56; PULSE 60; RESP 20; TEMP 36.5; O2SAT 95
[2020-08-24] MEDS: GABAPENTIN 300 MG CAPSULE PO ×2 (06:06→12:36)
[2020-08-24] MEDS: FERROUS SULFATE 324 MG TABLET PO (07:51)
[2020-08-24 08:00] VITALS: PULSE 60; RESP 20; O2SAT 95
[2020-08-24] MEDS: FAMOTIDINE 20 MG TABLET PO ×2 (09:13→20:15)
[2020-08-24] MEDS: DOCUSATE SODIUM 100 MG CAPSULE PO ×2 (09:13→17:03)
[2020-08-24 09:14] VITALS: PULSE 60
[2020-08-24] MEDS: SENNOSIDES 8.6 MG TABLET PO ×2 (09:14→17:03)
[2020-08-24] MEDS: carvediloL 25 MG TABLET PO ×2 (09:14→20:14)
[2020-08-24] MEDS: amLODIPine BESYLATE 5 MG TABLET 10 MG PO (09:14)
[2020-08-24] MEDS: PRAVASTATIN SODIUM 20 MG TABLET 80 MG PO (09:14)
[2020-08-24] MEDS: FONDAPARINUX SODIUM 2.5 MG/0.5 ML SYRINGE SUB-Q (09:15)
[2020-08-24] MEDS: polyethylene glycoL 3350 17 GM POWD.PACK PO (09:15)
[2020-08-24] MEDS: lisinopriL 10 MG TABLET PO (09:15)
[2020-08-24] MEDS: SODIUM BICARBONATE TAB 650 MG TABLET PO ×2 (09:15→17:03)
[2020-08-24] MEDS: CYANOCOBALAMIN 1,000 MCG TABLET 1000 MCG PO (09:15)
[2020-08-24] MEDS: TAMSULOSIN HCL 0.4 MG CAPSULE PO (09:15)
[2020-08-24] MEDS: traMADol HCL (*CRX) 50 MG TABLET PO ×2 (09:23→20:17)
[2020-08-24 14:00] VITALS: BP 105/46; PULSE 65; RESP 20; TEMP 35.9; O2SAT 98
--- NOTE | 2020-08-24 16:18 | WPDNEURORHBP ---
Subjective Date/time seen: 08/24/20 16:18 84 years old with traumatic brain dysfunction and subarachnoid hemorrhage continues to be involved in the physical therapy and occupational therapy. Remains afebrile with temp of 35.9? pulse 65 respiration 20 pulse ox 98% blood pressure 105/46 on the lower side lab yesterday with WBC 4.5 hemoglobin 10.3 and the platelet count of 1 1 7 electrolytes normal Review of Systems Review of Systems: All systems reviewed & are unremarkable except as noted in HPI and below Functional Status Ambulation Ability Ability to Ambulate 10 Feet: Standby Assistance Ability to Ambulate 50 Feet With 2 Turns: Standby Assistance Ability to Ambulate 150 Feet: Standby Assistance Ambulation Assistive Devices: Walker, Wheeled Transfers Ability Ability to Transfer In/Out of Chair: Contact Guard Exam Const: General: cooperative and no acute distress Nutritional Appearance: average body habitus Orientation/consciousness: patient oriented x3 Limitations: no limitations HENMT: Head: normocephalic Ears: hearing grossly normal bilaterally General nose exam: Normal external nose present Face and sinus: normal facial exam Mouth: Yes Normal oral and palatal mucosa present Eyes: General: appearance normal, both eyes and all related structures Neck: Neck: full ROM and no lymphadenopathy Resp: Effort & Inspection: normal respiratory effort Auscultation: clear to auscultation bilaterally Cardio: Jugular venous distension: no JVD Rate: regular rate Rhythm: regular rhythm GI: Inspection: normal to inspection Auscultation: normal bowel sounds Skin: General skin exam: no rashes or lesions noted Neuro: General: patient oriented x3 Cranial nerves: Yes CN's II-XII intact bilaterally Motor exam (neuro): 5/5 motor strength present throughout Plantar Reflex Responses: downgoing: bilateral Psych: Appearance: grossly normal Objective Data Vital Signs Vital Signs: Vital Signs - 24 hr 08/23/20 20:36 08/23/20 22:00 08/24/20 06:00 Temperature 36.2 C L 36.5 C Pulse Rate 72 66 60 Respiratory Rate 20 20 Blood Pressure 157/68 H 140/56 L Pulse Oximetry 98 95 08/24/20 08:00 08/24/20 09:14 08/24/20 14:00 Temperature 35.9 C L Pulse Rate 60 60 65 Respiratory Rate 20 20 Blood Pressure 105/46 L Pulse Oximetry 95 98 Intake/Output Intake/Output: Intake & Output 08/21/20 08/22/20 08/23/20 08/24/20 23:59 23:59 23:59 23:59 Intake Total 700 720 720 360 Output Total 970 1220 400 Balance -270 -500 720 -40 Meds/Results Medications: Active Medications Generic Name Dose Route Start Last Admin Trade Name Freq PRN Reason Stop Dose Admin Acetaminophen 650 mg 08/14/20 18:34 08/16/20 08:31 Acetaminophen 325 Mg Tablet PO 650 mg Q8H PRN Administration Pain (Scale Score 1-3) Amlodipine Besylate 10 mg 08/15/20 09:00 08/24/20 09:14 Amlodipine Besylate 5 Mg Tablet PO 10 mg DAILY TRISTAN Administration Bisacodyl 10 mg 08/14/20 18:34 Bisacodyl 10 Mg Suppository RECTAL DAILY PRN Constipation Carvedilol 25 mg 08/23/20 21:00 08/24/20 09:14 Carvedilol 25 Mg Tablet PO 25 mg Q12HR TRISTAN Administration Cyanocobalamin 1,000 mcg 08/15/20 09:00 08/24/20 09:15 Cyanocobalamin 1,000 Mcg Tablet PO 1,000 mcg DAILY TRISTAN Administration Diclofenac Sodium 1 applic 08/24/20 17:00 Diclofenac Sodium 1% 100 Gm Gel (*Bkc) TOPICAL TID [facility] Docusate Sodium 100 mg 08/14/20 17:00 08/24/20 09:13 Docusate Sodium 100 Mg Capsule PO 100 mg BID TRISTAN Administration Famotidine 20 mg 08/14/20 21:00 08/24/20 09:13 Famotidine 20 Mg Tablet PO 20 mg Q12HR TRISTAN Administration Ferrous Sulfate 324 mg 08/15/20 08:00 08/24/20 07:51 Ferrous Sulfate 324 Mg Tablet PO 324 mg [email or web address] TRISTAN Administration Fondaparinux 2.5 mg 08/15/20 09:00 08/24/20 09:15 Fondaparinux Sodium 2.5 Mg/0.5 Ml Syringe SUB-Q 2.5 mg DAILY TRISTAN Administration Furos
[2020-08-24 20:14] VITALS: PULSE 64
[2020-08-24] MEDS: GABAPENTIN 300 MG CAPSULE 600 MG PO (20:17)
[2020-08-24 22:00] VITALS: BP 153/52; PULSE 64; RESP 18; TEMP 36.1; O2SAT 98
[2020-08-25] VITALS (7 sets, daily range): BP systolic 131–158; BP diastolic 52–55; PULSE 58–64; RESP 18–20; TEMP 36.1–36.2; O2SAT 96–99
[2020-08-25] MEDS: GABAPENTIN 300 MG CAPSULE PO ×2 (05:59→12:39)
[2020-08-25] MEDS: amLODIPine BESYLATE 5 MG TABLET 10 MG PO (09:07)
[2020-08-25] MEDS: polyethylene glycoL 3350 17 GM POWD.PACK PO (09:07)
[2020-08-25] MEDS: DOCUSATE SODIUM 100 MG CAPSULE PO ×2 (09:07→16:43)
[2020-08-25] MEDS: PRAVASTATIN SODIUM 20 MG TABLET 80 MG PO (09:08)
[2020-08-25] MEDS: SODIUM BICARBONATE TAB 650 MG TABLET PO ×2 (09:09→16:44)
[2020-08-25] MEDS: lisinopriL 10 MG TABLET PO (09:09)
[2020-08-25] MEDS: SENNOSIDES 8.6 MG TABLET PO ×2 (09:09→16:44)
[2020-08-25] MEDS: TAMSULOSIN HCL 0.4 MG CAPSULE PO (09:09)
[2020-08-25] MEDS: FAMOTIDINE 20 MG TABLET PO ×2 (09:09→20:52)
[2020-08-25] MEDS: carvediloL 25 MG TABLET PO ×2 (09:10→20:51)
[2020-08-25] MEDS: CYANOCOBALAMIN 1,000 MCG TABLET 1000 MCG PO (09:10)
[2020-08-25] MEDS: traMADol HCL (*CRX) 50 MG TABLET PO ×2 (09:14→20:53)
[2020-08-25] MEDS: FONDAPARINUX SODIUM 2.5 MG/0.5 ML SYRINGE SUB-Q (09:23)
--- NOTE | 2020-08-25 11:54 | WPDNEURORHBP ---
Subjective Date/time seen: 08/25/20 11:54 84 years old with traumatic brain dysfunction and subarachnoid hemorrhage has been involved in physical therapy and occupational therapy also remains afebrile with temp of 36.2? pulse 60 respiration 18 blood pressure 131/52 and pulse ox 96% on room air has no new lab Review of Systems Review of Systems: All systems reviewed & are unremarkable except as noted in HPI and below Functional Status Ambulation Ability Ability to Ambulate 10 Feet: Standby Assistance Ability to Ambulate 50 Feet With 2 Turns: Standby Assistance Ability to Ambulate 150 Feet: Standby Assistance Ambulation Assistive Devices: Walker, Wheeled Transfers Ability Ability to Transfer In/Out of Chair: Contact Guard Exam Const: General: cooperative, comfortable, no acute distress, alert and awake Nutritional Appearance: well nourished Orientation/consciousness: patient oriented x3 HENMT: General nose exam: Normal external nose present and No nasal discharge present Face and sinus: normal facial exam Mouth: Yes Normal oral and palatal mucosa present Eyes: General: appearance normal, both eyes and all related structures Neck: Neck: full ROM Resp: Effort & Inspection: normal respiratory effort and able to speak in complete sentences Cardio: Jugular venous distension: no JVD Rate: regular rate Rhythm: regular rhythm GI: Auscultation: normal bowel sounds Skin: General skin exam: no rashes or lesions noted Neuro: General: patient oriented x3 and moves all extremities Cranial nerves: Yes CN's II-XII intact bilaterally, Yes Equal, round and reactive pupils present, Yes Bilaterally intact EOM present, Yes Nystagmus not present and Yes Midline tongue present Speech: normal speech Deep tendon reflexes (DTR's): Right triceps reflex intensity grade: 1+, Left triceps reflex intensity grade: 1+, Rt Biceps (C5, C6): 1+, Left biceps reflex intensity grade: 1+, Right brachioradialis reflex intensity grade: 1+, Left brachioradialis reflex intensity grade: 1+, Right patellar reflex intensity grade: 1+, Left patellar reflex intensity grade: 1+, Right ankle reflex intensity grade: 1+ and Left ankle reflex intensity grade: 1+ Plantar Reflex Responses: downgoing: bilateral Coordination: [id number] test normal Extrem: General: capillary refill normal Psych: Appearance: grossly normal Objective Data Vital Signs Vital Signs: Vital Signs - 24 hr 08/24/20 14:00 08/24/20 20:14 08/24/20 22:00 Temperature 35.9 C L 36.1 C L Pulse Rate 65 64 64 Respiratory Rate 20 18 Blood Pressure 105/46 L 153/52 H Pulse Oximetry 98 98 08/25/20 06:00 08/25/20 08:00 08/25/20 09:10 Temperature 36.2 C L Pulse Rate 60 60 60 Respiratory Rate 18 18 Blood Pressure 131/52 L Pulse Oximetry 96 96 Intake/Output Intake/Output: Intake & Output 08/22/20 08/23/20 08/24/20 08/25/20 23:59 23:59 23:59 23:59 Intake Total 720 720 600 240 Output Total 1220 400 Balance -500 720 200 240 Meds/Results Medications: Active Medications Generic Name Dose Route Start Last Admin Trade Name Freq PRN Reason Stop Dose Admin Acetaminophen 650 mg 08/14/20 18:34 08/16/20 08:31 Acetaminophen 325 Mg Tablet PO 650 mg Q8H PRN Administration Pain (Scale Score 1-3) Amlodipine Besylate 10 mg 08/15/20 09:00 08/25/20 09:07 Amlodipine Besylate 5 Mg Tablet PO 10 mg DAILY TRISTAN Administration Bisacodyl 10 mg 08/14/20 18:34 Bisacodyl 10 Mg Suppository RECTAL DAILY PRN Constipation Carvedilol 25 mg 08/23/20 21:00 08/25/20 09:10 Carvedilol 25 Mg Tablet PO 25 mg Q12HR TRISTAN Administration Cyanocobalamin 1,000 mcg 08/15/20 09:00 08/25/20 09:10 Cyanocobalamin 1,000 Mcg Tablet PO 1,000 mcg DAILY TRISTAN Administration Docusate Sodium 100 mg 08/14/20 17:00 08/25/20 09:07 Docusate Sodium 100 Mg Capsule PO 100 mg BID TRISTAN Administration Famotidine 20 mg 08/14/20 21:00 08/25/20 09:09
[2020-08-25] MEDS: GABAPENTIN 300 MG CAPSULE 600 MG PO (20:53)
[2020-08-26 04:24] VITALS: BP 155/50; PULSE 60; RESP 18; TEMP 36.4; O2SAT 95
[2020-08-26] MEDS: GABAPENTIN 300 MG CAPSULE PO ×2 (06:42→12:31)
[2020-08-26] MEDS: amLODIPine BESYLATE 5 MG TABLET 10 MG PO (08:44)
[2020-08-26] MEDS: carvediloL 25 MG TABLET PO ×2 (08:45→20:51)
[2020-08-26] MEDS: FONDAPARINUX SODIUM 2.5 MG/0.5 ML SYRINGE SUB-Q (08:46)
[2020-08-26] MEDS: CYANOCOBALAMIN 1,000 MCG TABLET 1000 MCG PO (08:46)
[2020-08-26] MEDS: FAMOTIDINE 20 MG TABLET PO ×2 (08:46→20:52)
[2020-08-26] MEDS: lisinopriL 10 MG TABLET PO (08:48)
[2020-08-26] MEDS: SODIUM BICARBONATE TAB 650 MG TABLET PO ×2 (08:49→17:09)
[2020-08-26] MEDS: PRAVASTATIN SODIUM 20 MG TABLET 80 MG PO (08:49)
[2020-08-26] MEDS: TAMSULOSIN HCL 0.4 MG CAPSULE PO (08:49)
[2020-08-26] MEDS: SENNOSIDES 8.6 MG TABLET PO ×2 (08:52→17:09)
[2020-08-26] MEDS: DOCUSATE SODIUM 100 MG CAPSULE PO ×2 (08:52→17:09)
[2020-08-26] MEDS: polyethylene glycoL 3350 17 GM POWD.PACK PO (08:53)
[2020-08-26] MEDS: traMADol HCL (*CRX) 50 MG TABLET PO ×2 (09:02→20:52)
[2020-08-26 09:16] VITALS: RESP 18; O2SAT 95
[2020-08-26 14:00] VITALS: BP 131/44; PULSE 60; RESP 20; TEMP 36; O2SAT 97
[2020-08-26] MEDS: ACETAMINOPHEN 325 MG TABLET 650 MG PO (17:11)
[2020-08-26 20:50] VITALS: BP 160/60; PULSE 63; RESP 12; TEMP 36.4; O2SAT 94
[2020-08-26 20:51] VITALS: PULSE 63
[2020-08-26] MEDS: GABAPENTIN 300 MG CAPSULE 600 MG PO (20:52)
[2020-08-27] VITALS (8 sets, daily range): BP systolic 132–150; BP diastolic 46–70; PULSE 60–63; RESP 12–20; TEMP 36.5–36.9; O2SAT 96–99
[2020-08-27] MEDS: GABAPENTIN 300 MG CAPSULE PO ×2 (06:26→13:28)
[2020-08-27] MEDS: carvediloL 25 MG TABLET PO ×2 (09:41→20:26)
[2020-08-27] MEDS: FERROUS SULFATE 324 MG TABLET PO (09:41)
[2020-08-27] MEDS: FAMOTIDINE 20 MG TABLET PO ×2 (09:41→20:26)
[2020-08-27] MEDS: lisinopriL 10 MG TABLET PO (09:41)
[2020-08-27] MEDS: FONDAPARINUX SODIUM 2.5 MG/0.5 ML SYRINGE SUB-Q (09:41)
[2020-08-27] MEDS: TAMSULOSIN HCL 0.4 MG CAPSULE PO (09:41)
[2020-08-27] MEDS: PRAVASTATIN SODIUM 20 MG TABLET 80 MG PO (09:42)
[2020-08-27] MEDS: SODIUM BICARBONATE TAB 650 MG TABLET PO ×2 (09:42→16:55)
[2020-08-27] MEDS: CYANOCOBALAMIN 1,000 MCG TABLET 1000 MCG PO (09:42)
[2020-08-27] MEDS: amLODIPine BESYLATE 5 MG TABLET 10 MG PO (09:42)
[2020-08-27] MEDS: traMADol HCL (*CRX) 50 MG TABLET PO ×2 (09:48→18:43)
[2020-08-27] MEDS: DOCUSATE SODIUM 100 MG CAPSULE PO ×2 (09:58→16:55)
[2020-08-27] MEDS: SENNOSIDES 8.6 MG TABLET PO ×2 (09:58→16:55)
[2020-08-27] MEDS: polyethylene glycoL 3350 17 GM POWD.PACK PO (09:58)
--- NOTE | 2020-08-27 12:35 | PCDIET ---
Nutrition Follow-Up Complete: Nutrition Diagnosis: Predicted suboptimal oral intake related to decreased appetite as evidenced by patient report on admission with intakes of 50% thus far. Nutrition Goal: Patient to consume 75% of meals/supplements or greater. Goal met. Patient consuming 75-100% of most meals on regular diet. Requests to stop Ensure Enlive which is appropriate, given oral intakes. Last recorded weight is 87.5 kg. Recommend obtaining new weight. Bowel Motility: Last documented BM on 08/25/20. Labs Reviewed: Hgb (10.3), Hct (30.3), BUN (23), Cr (1.5) Meds Noted: Norvasc, Coreg, Vitamin B12, Colace, Pepcid, Ferrous Sulfate, Lisinopril, Miralax, Pravastatin, Senna, Sodium Bicarbonate Additional Notes: Left chest with steri strips. No documented pressure sores. Will continue to monitor with same goal. Nutrition Monitoring and Evaluation: Follow up every 7 days.
[2020-08-27] MEDS: ACETAMINOPHEN 325 MG TABLET 650 MG PO (13:35)
--- NOTE | 2020-08-27 18:44 | PC.NURSE ---
had ultram at 1844
[2020-08-27] MEDS: GABAPENTIN 300 MG CAPSULE 600 MG PO (20:26)
[2020-08-28] VITALS (7 sets, daily range): BP systolic 137–170; BP diastolic 50–98; PULSE 60–83; RESP 16–20; TEMP 36–36.9; O2SAT 96–97
[2020-08-28] MEDS: GABAPENTIN 300 MG CAPSULE PO ×2 (06:13→14:00)
[2020-08-28] MEDS: carvediloL 25 MG TABLET PO ×2 (08:52→21:47)
[2020-08-28] MEDS: amLODIPine BESYLATE 5 MG TABLET 10 MG PO (08:52)
[2020-08-28] MEDS: CYANOCOBALAMIN 1,000 MCG TABLET 1000 MCG PO (08:53)
[2020-08-28] MEDS: FAMOTIDINE 20 MG TABLET PO ×2 (08:53→21:47)
[2020-08-28] MEDS: polyethylene glycoL 3350 17 GM POWD.PACK PO (08:54)
[2020-08-28] MEDS: FONDAPARINUX SODIUM 2.5 MG/0.5 ML SYRINGE SUB-Q (08:54)
[2020-08-28] MEDS: PRAVASTATIN SODIUM 20 MG TABLET 80 MG PO (08:54)
[2020-08-28] MEDS: lisinopriL 10 MG TABLET PO (08:54)
[2020-08-28] MEDS: SODIUM BICARBONATE TAB 650 MG TABLET PO (08:55)
[2020-08-28] MEDS: TAMSULOSIN HCL 0.4 MG CAPSULE PO (08:55)
[2020-08-28] MEDS: SENNOSIDES 8.6 MG TABLET PO ×2 (09:13→17:24)
[2020-08-28] MEDS: DOCUSATE SODIUM 100 MG CAPSULE PO ×2 (09:13→17:24)
--- NOTE | 2020-08-28 10:57 | PC.NURSE ---
Spoke with office, confirmed asa to be restarted today, also continue arixta until pt is seen on Sep 25. Dr. Odom made aware
--- NOTE | 2020-08-28 12:15 | WPDNEURORHBP ---
Subjective Date/time seen: 08/28/20 12:15 84 years old with traumatic brain dysfunction and subarachnoid hemorrhage has been involved in the therapy on a regular basis situation was discussed and the family meeting as well in the team meeting he is being discharged tomorrow will be continued on Arixtra in addition he will receive outpatient physical therapy and occupational therapy as well will be followed by his surgeon, remains afebrile with temp of 36.4? pulse 61 respirations 20 pulse ox 96% on room air blood pressure 150/61 with mean of 90 in supine position, no new lab Review of Systems Review of Systems: All systems reviewed & are unremarkable except as noted in HPI and below Functional Status Ambulation Ability Ability to Ambulate 10 Feet: Standby Assistance Ability to Ambulate 50 Feet With 2 Turns: Standby Assistance Ability to Ambulate 150 Feet: Standby Assistance Ambulation Assistive Devices: Walker, Wheeled Transfers Ability Ability to Transfer In/Out of Chair: Contact Guard Exam Const: General: cooperative, comfortable and no acute distress Nutritional Appearance: overweight Orientation/consciousness: patient oriented x3 HENMT: General nose exam: Normal external nose present and No nasal discharge present Face and sinus: normal facial exam Mouth: Yes Normal oral and palatal mucosa present Eyes: General: appearance normal, both eyes and all related structures Alignment and Position: alignment normal Periorbital: periorbital findings normal Eyelids: eyelids normal Conjunctivae: conjunctivae normal Sclera: sclerae normal Cornea: corneas normal Pupils: Equal, round and reactive pupils present EOM: EOMs intact bilaterally Neck: Neck: full ROM Chest: Chest palpation & inspection: normal inspection of the chest Resp: Effort & Inspection: normal respiratory effort Auscultation: clear to auscultation bilaterally Cardio: Jugular venous distension: no JVD Rate: regular rate GI: Auscultation: normal bowel sounds Skin: General skin exam: no rashes or lesions noted Neuro: General: patient oriented x3 Cranial nerves: Yes CN's II-XII intact bilaterally Cognition (Neuro): normal cognition Speech: normal speech Sensory Exam: normal sensation Deep tendon reflexes (DTR's): Right triceps reflex intensity grade: 1+, Left triceps reflex intensity grade: 1+, Rt Biceps (C5, C6): 1+, Left biceps reflex intensity grade: 1+, Right brachioradialis reflex intensity grade: 1+, Left brachioradialis reflex intensity grade: 1+, Right patellar reflex intensity grade: 1+, Left patellar reflex intensity grade: 1+, Right ankle reflex intensity grade: 1+ and Left ankle reflex intensity grade: 1+ Plantar Reflex Responses: downgoing: bilateral Extrem: General: capillary refill normal Psych: Appearance: grossly normal Objective Data Vital Signs Vital Signs: Vital Signs - 24 hr 08/27/20 13:35 08/27/20 14:00 08/27/20 20:00 Temperature 36.9 C 36.5 C Pulse Rate 60 63 Respiratory Rate 18 20 Blood Pressure 132/46 L Pulse Oximetry 96 99 08/27/20 20:26 08/27/20 22:00 08/28/20 06:00 Temperature 36.6 C 36.4 C L Pulse Rate 62 63 60 Respiratory Rate 20 20 Blood Pressure 148/47 H 150/61 H Pulse Oximetry 99 96 08/28/20 08:52 Temperature Pulse Rate 61 Respiratory Rate Blood Pressure Pulse Oximetry Intake/Output Intake/Output: Intake & Output 08/25/20 08/26/20 08/27/20 08/28/20 23:59 23:59 23:59 23:59 Intake Total 720 720 720 120 Output Total 0525 534 9155 Balance -580 -100 -920 120 Meds/Results Medications: Active Medications Generic Name Dose Route Start Last Admin Trade Name Abimaelq PRN Reason Stop Dose Admin Acetaminophen 650 mg 08/14/20 18:34 08/27/20 13:35 Acetaminophen 325 Mg Tablet PO 650 mg Q8H PRN Administration Pain (Scale Score 1-3) Amlodipine Besylate 10 mg 08/15/20 09:00 08/28/20 08:52 Amlodipine Besylate 5 Mg Tablet PO 10 mg DAILY TRISTAN Administration Asp
[2020-08-28] MEDS: ACETAMINOPHEN 325 MG TABLET 650 MG PO (13:27)
[2020-08-28] MEDS: ASPIRIN 81 MG ENTERIC TABLET PO (13:30)
[2020-08-28] MEDS: GABAPENTIN 300 MG CAPSULE 600 MG PO (21:46)
[2020-08-28] MEDS: traMADol HCL (*CRX) 50 MG TABLET PO (21:54)
[2020-08-29 05:11] LABS: Basophils Percent Auto 0.5 % (0.2-1.2); Eosinophils Absolute Auto 0.2 K/mm3 (0-0.3); Hematocrit 31.1 % (42.0-52.0); Hemoglobin 10.7 g/dL (14.0-18.0); Immature Granulocyte Absolute 0.02 K/mm3 (0.00-0.031); Immature Granulocyte Percent A 0.5 % (0-0.5); Immature Platelet Fraction Pct 3.5 % (0.9-11.2); Lymphocytes Percent Auto 27.2 % (18.3-44.2); Mean Corpuscular HGB Conc 34.4 g/dl (32-36); Mean Corpuscular Hemoglobin 30.8 pg (26-34); Mean Corpuscular Volume 89.6 fl (80-100); Mean Platelet Volume 10.4 fl (7.4-10.4); Monocytes Absolute Auto 0.4 K/mm3 (0.1-0.6); Monocytes Percent Auto 8.2 % (2.6-8.5); Neutrophils Absolute Auto 2.6 K/mm3 (1.3-6.7); Neutrophils Percent Auto 58.6 % (45.5-73.1); Platelet Count Result 104 k/mm3 (150-375); Red Blood Count 3.47 M/mm3 (4.6-6.20); Red Cell Distribution Width 12.9 % (11.5-14.5); White Blood Count 4.4 K/mm3 (4.5-10.0)
[2020-08-29 05:26] LABS: Anion Gap 4 mmol/L (8-16); Blood Urea Nitrogen 23 mg/dL (9-20); Calcium 9.1 mg/dL (8.4-10.2); Carbon Dioxide 30 mmol/L (22-30); Chloride 106 mmol/L (98-107); Estimated CRCL calculation 36 ml/min; Estimated Glomerular Filt Rate 45; Glucose 84 mg/dL (75-110); Sodium 140 mmol/L (137-145)
[2020-08-29 06:00] VITALS: BP 146/61; PULSE 67; RESP 20; TEMP 36.3; O2SAT 98
[2020-08-29] MEDS: GABAPENTIN 300 MG CAPSULE PO (06:30)
[2020-08-29 09:19] VITALS: PULSE 67
[2020-08-29] MEDS: FERROUS SULFATE 324 MG TABLET PO (09:19)
[2020-08-29] MEDS: lisinopriL 10 MG TABLET PO (09:19)
[2020-08-29] MEDS: carvediloL 25 MG TABLET PO (09:19)
[2020-08-29] MEDS: PRAVASTATIN SODIUM 20 MG TABLET 80 MG PO (09:19)
[2020-08-29] MEDS: ASPIRIN 81 MG ENTERIC TABLET PO (09:19)
[2020-08-29] MEDS: amLODIPine BESYLATE 5 MG TABLET 10 MG PO (09:19)
[2020-08-29] MEDS: CYANOCOBALAMIN 1,000 MCG TABLET 1000 MCG PO (09:19)
[2020-08-29] MEDS: FAMOTIDINE 20 MG TABLET PO (09:20)
[2020-08-29] MEDS: FONDAPARINUX SODIUM 2.5 MG/0.5 ML SYRINGE SUB-Q (09:20)
[2020-08-29] MEDS: TAMSULOSIN HCL 0.4 MG CAPSULE PO (09:20)
[2020-08-29] MEDS: SODIUM BICARBONATE TAB 650 MG TABLET PO (09:48)
--- NOTE | 2020-08-30 12:24 | PM.DS ---
DS: Admitting Diagnosis Admitting Diagnosis Admitting Diagnosis: nontraumatic brain dysfunction DS: Summary Hospital Course Hospital Course: improved and stable Time Spent with Patient Time attestation: Total time spent providing and/or coordinating discharge services:ADMISSION FUNCTION: 84 years old right-handed male admitted to the rehab floor with chief complaint of brain dysfunction traumatic in nature and etiological diagnosis of subarachnoid hemorrhage of the basilar cistern in addition to the ongoing comorbid conditions of 1 hypertension 2. Hyperlipidemia 3. Coronary artery disease 4. Aortic valve replacement 5. Chronic kidney disease 6. Renal artery stenosis 7. Sleep apnea 8. Spinal stenosis patient was noted to have small volume subarachnoid hemorrhage for which he received 2units of platelets for thrombocytopenia he was also COVID negative and was treated with cefepime for urinary tract infection he had permanent pacemaker placed in on August 09, 2020 he was to resume aspirin on August 21, 2020 and Plavix to be held up until follow-up and at the time of transfer here patient was receiving Arixtra. At the time of admission his level of functions was as follows Eating [Set Up Only] Oral Care substantial Toileting Hygiene substantial Shower/Bathing substantial Upper Body Dressing substantial Lower Body Dressing substantial Rolling Left and Right substantial Lying to Sitting substantial Sit to Stand partial assistance Bed to Chair Transfers partial assist Toilet Transfers substantial Car Transfers partial medical services assistant Walking 10' partial assisted Walking 50' with Two Turns unable Walking 150' unable Curb or step unable 4 Steps patient unable 12 Steps unable Picking Up Object unable [Wheelchair Mobility 50'] super [Wheelchair Mobility 150'] supervision GOALS: Eating [INDEPENDENT] Oral Care [INDEPENDENT] Toileting Hygiene [INDEPENDENT] Shower/Bathing supervision Upper Body Dressing set up Lower Body Dressing set up [employer] [INDEPENDENT] Rolling Left and Right [INDEPENDENT] Sit to Lying [INDEPENDENT] Lying to Sitting [INDEPENDENT] Sit to Stand [INDEPENDENT] Bed to Chair Transfers [INDEPENDENT] Toilet Transfers [INDEPENDENT] Car Transfers [INDEPENDENT] Walking 10' [INDEPENDENT] Walking 50' with Two Turns [INDEPENDENT] Walking 150' not applicable Curb or Step supervision 4 Steps supervision 12 Steps not applicable Picking Up Object independent [Wheelchair Mobility 50'] [INDEPENDENT] [Wheelchair Mobility 150'] [INDEPENDENT] DISCHARGE PERFORMANCE: Eating set up Oral Care [INDEPENDENT] Toileting Hygiene [INDEPENDENT] Shower/Bathing supervision Upper Body Dressing set up Lower Body Dressing supervision [employer] Foot[employer] supervision Rolling Left and Right supervision Sit to Lying supervision Lying to Sitting supervision Sit to Stand supervision Bed to Chair Transfers supervision Toilet Transfers supervision Car Transfers supervision Walking 10' supervision Walking 50' with Two Turns super B Walking 150' supervision Curb or Step partial assist 4 Steps partial assisted 12 Steps unable Picking Up Object supinate [Wheelchair Mobility 50'] [INDEPENDENT] [Wheelchair Mobility 150'] [INDEPENDENT] at the time of discharge the general physical examination was stable lungs were clear with no rhonchi or crepitation heart was regular abdomen is soft nontender normal bowel sounds and neurological examination was nonfocal during the entire hospitalization patient had no falls or injuries, he was discharged to his home with outpatient arrangement, his blood thinning medication were changed from the Arixtra to rivaroxaban as the family was unable to obtain Arixtra and his condition improved and remained stable. Discharge Plan Discharge Attending physician on discharge: Alber Odom Discharging Clinician: Alber Odom Anticipated Discharge Date/Time: 08/29/20 10:02
== END 2020-08-29 14:35 | disposition home health service (06) | DRG 949 ==
PROVIDERS: Admitting Provider Psychiatry & Neurology Neurology; PCP Internal Medicine; Visit Provider Psychiatry & Neurology Neurology
DX: S06.6X9D Traumatic subarachnoid hemorrhage with loss of consciousness of unspecified duration, subsequent encounter (principal); I13.0 Hypertensive heart and chronic kidney disease with heart failure and stage 1 through stage 4 chronic kidney disease, or unspecified chronic kidney disease; W19.XXXD Unspecified fall, subsequent encounter; N18.9 Chronic kidney disease, unspecified; I50.9 Heart failure, unspecified; E78.5 Hyperlipidemia, unspecified; I25.10 Atherosclerotic heart disease of native coronary artery without angina pectoris; I70.1 Atherosclerosis of renal artery; G47.30 Sleep apnea, unspecified; M48.00 Spinal stenosis, site unspecified; D69.6 Thrombocytopenia, unspecified; R26.9 Unspecified abnormalities of gait and mobility; Z95.4 Presence of other heart-valve replacement; Z95.0 Presence of cardiac pacemaker; Z79.02 Long term (current) use of antithrombotics/antiplatelets; Z85.46 Personal history of malignant neoplasm of prostate
CPT/HCPCS: 36415; 80048; 85025; 85055; 97110; 97116; 97161; 97166; 97530; 97535; 97542; A9270; J1652

== ENCOUNTER 2020-09-07 17:25 | Outpatient (NON) | payer MEDICARE, SELFPAY ==
[2020-09-07 17:49] LABS: Appearance Urine Cloudy (Clear); Bilirubin Urine Negative (Negative); Color Urine Straw (Yellow); Glucose Urine UA Negative (Negative); Ketones Urine Negative (Negative); Leukocyte Esterase Ur 2+ (Negative); Nitrate Urine Negative (Negative); Protein Urine Negative (Negative); Urobilinogen Urine 0.2 mg/dL (0.2-1.0)
[2020-09-07 17:53] LABS: Add Urine Microscopic? YES; Blood Urine Trace-Intact (Negative); RBC Urine None seen /hpf (0-2)
[2020-09-07 17:54] LABS: Bacteria Urine Trace /hpf; Squamous Epithelial Cell Urine Rare /hpf (Few); WBC Urine >75 /hpf (0-3)
== END 2020-09-07 17:26 ==
LOC: CHSLAB 17:28
PROVIDERS: PCP Internal Medicine; Visit Provider Internal Medicine
DX: R33.9 Retention of urine, unspecified (principal)
CPT/HCPCS: 81001; 87077; 87086; 87088

== ENCOUNTER 2021-01-28 12:35 | Outpatient (CLI) | payer MEDICARE, SELFPAY ==
[2021-01-28 12:57] LABS: Basophils Absolute Auto 0.02 K/mm3 (0.00-0.10); Basophils Percent Auto 0.3 % (0.0-1.0); Eosinophils Percent Auto 2.6 % (1.0-6.0); Hemoglobin 11.5 g/dL (12.4-15.3); Immature Granulocyte Absolute 0.03 K/mm3 (0.00-0.00); Immature Granulocyte Percent A 0.4 % (0.0-0.0); Immature Platelet Fraction Pct 4.4 % (1.0-7.0); Lymphocytes Absolute Auto 1.14 K/mm3 (1.10-4.50); Mean Corpuscular HGB Conc 33.8 g/dL (32.0-36.0); Mean Corpuscular Hemoglobin 31.8 pg (27.0-31.0); Mean Corpuscular Volume 93.9 fL (78.0-102.0); Mean Platelet Volume 10.3 fl (8.7-11.0); Monocytes Absolute Auto 0.61 K/mm3 (0.10-0.90); Neutrophils Absolute Auto 5.6 K/mm3 (1.7-7.2); Neutrophils Percent Auto 73.7 % (50.0-70.0); Platelet Count Result 88 K/mm3 (150-420); Red Blood Count 3.62 M/mm3 (4.70-6.10); Red Cell Distribution Width 13.4 % (11.6-14.4); White Blood Count 7.6 K/mm3 (4.8-10.8)
[2021-01-28 13:06] LABS: Add Urine Microscopic? YES; Appearance Urine Cloudy (Clear); Bilirubin Urine Negative (Negative); Blood Urine 3+ (Negative); Color Urine Light Yellow (Yellow); Glucose Urine UA Negative (Negative); Ketones Urine Negative (Negative); Leukocyte Esterase Ur 3+ LEU/UL (Negative); Nitrate Urine Positive (Negative); Protein Urine Negative (Negative); Specific Grav Ur 1.015 (1.010-1.020); Urobilinogen Urine 0.2 mg/dL (0.2-1.0)
[2021-01-28 13:15] LABS: Bacteria Urine 4+ /hpf; Mucus Urine Few /lpf; Squamous Epithelial Cell Urine Few /hpf (Few); WBC Urine >75 /hpf (0-3)
[2021-01-28 13:27] LABS: Albumin Level 4.2 g/dL (3.4-5.0); Anion Gap 9 mmol/L (8-16); Blood Urea Nitrogen 27 mg/dL (7-18); Carbon Dioxide 28 mmol/L (21-32); Chloride 105 mmol/L (98-108); Estimated Glomerular Filt Rate 39; Glucose 88 mg/dL (70-99); Osmolality Calculated 298 mOsm/kg (285-295); Phosphorus 3.6 mg/dL (2.6-4.7); Potassium 4.5 mmol/L (3.5-5.1); Sodium 142 mmol/L (136-145)
[2021-01-28 13:34] LABS: Creatinine Urine 81.21 mg/dL (40-278); Total Protein Urine Random 34.1 mg/dL (0.0-11.9); Ur Ttl Prot Creatinine Ratio 0.42 mg/mg (0-0.20)
[2021-01-30 11:37] LABS: Parathyroid Intact 41 pg/mL (14-64)
[2021-02-06 19:32] LABS: Vitamin D 25 Hydroxy 43 ng/mL (30-100)
== END 2021-01-28 12:36 | disposition home or self-care (01) ==
LOC: CHSLAB 12:37
PROVIDERS: PCP Internal Medicine; Visit Provider Internal Medicine Nephrology
DX: I50.9 Heart failure, unspecified (principal); I12.9 Hypertensive chronic kidney disease with stage 1 through stage 4 chronic kidney disease, or unspecified chronic kidney disease; N18.30 Chronic kidney disease, stage 3 unspecified; R82.90 Unspecified abnormal findings in urine
CPT/HCPCS: 36415; 80069; 81001; 82306; 82570; 83970; 84156; 85025; 85055; 87077; 87086; 87088; 87186

== ENCOUNTER 2021-02-27 09:24 | Emergency (ER) | payer MEDICARE, SELFPAY ==
[2021-02-27] VITALS (21 sets, daily range): BP systolic 109–170; BP diastolic 48–69; PULSE 61–95; RESP 12–20; TEMP 37.1–38.8; O2SAT 88–99
--- NOTE | ~2021-02-27 | CT_ITS ---
EXAMINATION: CT brain wo con EXAM DATE: 02/27/2021 10:13 INDICATION: Lethargic, temporary change in awareness. Fatigue. History of stroke and prostate cancer. TECHNIQUE: Spiral CT of the head was performed without contrast. Axial, coronal and sagittal images were reviewed. The dose-length product (DLP) for this examination was 908.00 mGy-cm. The exposure w as tailored according to patient size, and iterative reconstruction (ASIR) was used as additional dos e reduction technique. Comparison is made to prior examination from 08/06/2020. FINDINGS: Old left basal ganglia lacunar infarction. There is no acute intraparenchymal hemorrhage. No evidence of intraparenchymal brain mass lesion. No evidence of acute infarction. Please note ester t initial head CT has limited sensitivity for small or acute infarctions. There is mild periventricul ar and subcortical hypodensity, nonspecific but probably related to small vessel ischemic disease. There is moderate prominence of the sulci and ventricles related to cerebral atrophy. There is intr acranial carotid arteriosclerosis. There are no extra-axial collections. There is no mass effect or midline shift. The orbits are unremarkable. Soft tissue is unremarkable. The visualized sinuses a nd mastoid air cells are well aerated. IMPRESSION: 1. No acute intracranial findings. 2. Chronic age related findings. 3. Old left basal ganglia lacunar infarction. Reviewed, dictated and finalized at location A.
--- NOTE | ~2021-02-27 | CT_ITS ---
EXAMINATION: CTA chest PE protocol EXAM DATE: 02/27/2021 11:06 INDICATION: Hypoxia, elevated d-dimer. Lethargy, fever. Change in awareness. TECHNIQUE: Spiral CTA of the chest (pulmonary arteries) was performed with 100 cc Omnipaque 350 intr avenous contrast injection. Images were acquired during the pulmonary arterial phase. Coronal maxi mum intensity projection 3D-reconstructions were created by the technologist on dedicated workstation . Axial, coronal and sagittal reformatted images were reviewed. The dose-length product (DLP) for t his examination was 798.28 mGy-cm. The exposure was tailored according to patient size (auto mA exp osure control), and iterative reconstruction (ASIR) was used as additional dose reduction technique. Correlation is made to chest x-ray earlier same day. FINDINGS: Pulmonary arteries are well opacified and without intraluminal filling defects. No thora cic aortic dissection. There is bibasilar dependent atelectasis, with subsegmental amount of right l ower lobe volume loss and subsegmental on the left. No evidence of superimposed pneumonia. There are no pleural or pericardial effusions. Tracheobronchial tree is patent. There is no mediastinal, h ilar or axillary lymphadenopathy. There is no pneumothorax. There is cardiomegaly. Stent across t he aortic valve. Pacemaker/AICD device. There are dense coronary arteries, could be severe coronary arterial sclerosis and/or coronary artery stent(s), which are difficult to distinguish due to cardiac motion on this non-gated exam. Correlate with cardiac history and consider cardiology consult if not recently evaluated. Small gastroesophageal hiatal hernia. Patient has diffuse idiopathic skeletal hyperostosis (DISH). IMPRESSION: 1. Cardiomegaly. Subsegmental right basilar, subsegmental left basilar atelectasis. 2. Small hiatal hernia. 3. No pulmonary emboli suspected. Reviewed, dictated and finalized at location A. IMPRESSION: 1. Cardiomegaly. Subsegmental right basilar, subsegmental left basilar atelect asis. 2. Small hiatal hernia. 3. No pulmonary emboli suspected.
--- NOTE | ~2021-02-27 | XR_ITS ---
EXAMINATION: XR chest 1V portable DATE: 02/27/2021 09:39 INDICATION: Shortness of breath. TECHNIQUE: A single frontal view of the chest was obtained. COMPARISON: Chest single view 08/06/2020 FINDINGS: There are mild airspace opacities in right mid and lower lung zones and left lower lung zon e. No pleural effusion or pneumothorax. Cardiomegaly is noted. There is a left chest wall pacer with leads in the right atrium and right ventricle. IMPRESSION: 1. Mild airspace opacities in right mid and lower lung zones and left lower lung zone, consistent wit h atelectasis versus pneumonia. 2. Cardiomegaly. Reviewed, dictated and finalized at location A. IMPRESSION: 1. Mild airspace opacities in right mid and lower lung zones and left lower igor g zone, consistent with atelectasis versus pneumonia. 2. Cardiomegaly.
--- NOTE | ~2021-02-27 | XR_ITS ---
EXAMINATION: XR chest 2V DATE: 03/01/2021 07:23 INDICATION: Hypoxia. TECHNIQUE: Frontal and lateral views of the chest were obtained on 3 radiographs. COMPARISON: Chest single view 02/27/2021, chest CT 02/27/2021 FINDINGS: A calcified right lung nodule and calcified right hilar lymph nodes are consistent with old granulomatous disease. There is mild atelectasis in the lower lung zones. No pleural effusion or pne umothorax. Cardiomegaly is noted. There are changes of aortic valve replacement. There is a left ches t wall pacer with leads in the right atrium and right ventricle. IMPRESSION: 1. Mild atelectasis in the lower lung zones. 2. Cardiomegaly. Reviewed, dictated and finalized at location A.
--- NOTE | 2021-02-27 09:28 | ECG_ITS ---
Measurements Intervals [place] Rate: 91 P: 9 VT: 248 QRS: 16 QRSD: 169 T: 26 QT: 397 QTc: 489 Interpretive Statements SINUS RHYTHM WITH FIRST DEGREE AV BLOCK LEFT BUNDLE BRANCH BLOCK BASELINE ARTIFACT- II, III, AVR, AVL, AVF ABNORMAL ECG Electronically Signed On 02-27-2021 9:50:29 CDT by Baudilio Matthew D.O.
--- NOTE | 2021-02-27 09:33 | ED.GENADULT ---
HPI - General Adult General Chief complaint: Altered Mental Status Stated complaint: AMBULANCE Source: patient and EMS Mode of arrival: EMS Limitations: altered mental status History of Present Illness HPI narrative: Pasquale is an 85m with a PMH of symptomatic bradycardia s/p pacemaker, s/p valve replacement, GRACE, CAD, HLD, HTN, prostate cancer, renal insufficiency and a subarachnoid hemorrhage that was brought in by EMS for being lethargic. He is reportedly being treated for a UTI but the family thought that he was more lethargic this morning. He is a little altered and further history is difficult to obtain at this time. Related Data Home Medications Medication Instructions Recorded Confirmed acetaminophen 650 mg PO Q8H PRN 08/14/20 02/27/21 Allergies Allergy/AdvReac Type Severity Reaction Status Date / Time heparin Allergy Severe HIT Verified 08/14/20 18:54 clonidine Allergy Itching Verified 08/14/20 17:48 mesalamine Allergy Rash Verified 08/14/20 17:43 Sulfa (Sulfonamide Allergy Rash Verified 08/14/20 17:42 Antibiotics) Review of Systems Review of Systems: ROS unobtainable: Yes unobtainable due to mental status [facility] Past Medical History Medical History Diverticulitis Dyslipidemia H/O congestive heart disease Hypertension Neurologic gait dysfunction Prostate cancer Renal insufficiency Surgical History Surgical History Heart valve replaced History of colon resection Family History Family History Father Cerebrovascular accident Sibling CAD (coronary artery disease) Social History Social History Smoking status: Never smoker Alcohol intake: never Substance use: never Substance use type: does not use Gender identity (if verbalized by the patient): Male Spiritual care concerns: No Exam Const: General: healthy appearing and confusion Limitations: altered mental status Other: No acute distress HENMT: Head: normal to inspection Other: atraumatic Eyes: Conjunctivae: conjunctivae normal Pupils: Equal, round and reactive pupils present Neck: Neck: normal visual inspection Chest: Chest palpation & inspection: normal inspection of the chest Resp: Effort & Inspection: normal respiratory effort and tachypneic Other: Decreased lung sounds in the right lower lobe Cardio: Rate: tachycardic Other: regular rhythm GI: Inspection: non-distended GI Palp: Yes Soft to palpation, No Tenderness to palpation present (GI) and No Guarding due to palpation present (GI) Other: Vertical midline abdominal scar : General: Yes no CVA tenderness Skin: General skin exam: normal color Rashes: no rashes Neuro: General: moves all extremities, no focal motor deficits and CN's II-XI intact bilaterally Other: Seemed confused and would only answer questions briefly then stop talking Extrem: General: normal to inspection Psych: Appearance: grossly normal Mental Status: mental status grossly normal Course Course Emergency Course: Pasquale was evaluated. Ordered labs, EKG, CT head, ABG, UA, antibiotics and fluids as his presentation is concerning for sepsis. EXAMINATION: XR chest 1V portable DATE: 02/27/2021 09:39 INDICATION: Shortness of breath. TECHNIQUE: A single frontal view of the chest was obtained. COMPARISON: Chest single view 08/06/2020 FINDINGS: There are mild airspace opacities in right mid and lower lung zones and left lower lung zone. No pleural effusion or pneumothorax. Cardiomegaly is noted. There is a left chest wall pacer with leads in the right atrium and right ventricle. IMPRESSION: 1. Mild airspace opacities in right mid and lower lung zones and left lower lung zone, consistent with atelectasis versus pneumonia. 2. Cardiomegaly. EXAMINATION: CT brain wo
[2021-02-27 09:55] LABS: Base Excess ABG -1.2 mmol/L (0-2); HCO3 ABG 21.3 mmol/L (23-29); PCO2 ABG 29.9 mmHg (35-45); PO2 ABG 86.4 mmHg (75-85); pH ABG 7.47 (7.35-7.45)
[2021-02-27 10:00] LABS: Device NASAL CANNULA; Liters per Minute 2.5 LPM; Modified Allen's Test Pass; Oxygen Saturation ABG 97.2 % (95-97); Site Drawn LEFT BRACHIAL
[2021-02-27 10:02] LABS: Basophils Absolute Auto 0.01 K/mm3 (0.00-0.10); Basophils Percent Auto 0.1 % (0.0-1.0); Eosinophils Absolute Auto 0.03 K/mm3 (0.02-0.50); Eosinophils Percent Auto 0.3 % (1.0-6.0); Immature Granulocyte Absolute 0.04 K/mm3 (0.00-0.00); Immature Granulocyte Percent A 0.4 % (0.0-0.0); Immature Platelet Fraction Pct 4.5 % (1.0-7.0); Lymphocytes Absolute Auto 0.29 K/mm3 (1.10-4.50); Lymphocytes Percent Auto 2.6 % (18.0-42.0); Mean Corpuscular HGB Conc 34.4 g/dL (32.0-36.0); Mean Corpuscular Hemoglobin 31.3 pg (27.0-31.0); Mean Corpuscular Volume 91.2 fL (78.0-102.0); Mean Platelet Volume 9.9 fl (8.7-11.0); Monocytes Absolute Auto 0.48 K/mm3 (0.10-0.90); Monocytes Percent Auto 4.3 % (2.0-11.0); Neutrophils Absolute Auto 10.4 K/mm3 (1.7-7.2); Neutrophils Percent Auto 92.3 % (50.0-70.0); Platelet Count Result 102 K/mm3 (150-420); Red Blood Count 3.51 M/mm3 (4.70-6.10); Red Cell Distribution Width 12.7 % (11.6-14.4); White Blood Count 11.2 K/mm3 (4.8-10.8)
[2021-02-27 10:10] LABS: INR 1.1; Prothrombin Time 11.5 Seconds (9.50-12.10)
[2021-02-27 10:12] LABS: D Dimer 2.13 mg/L (0.19-0.50)
[2021-02-27 10:15] LABS: Lactic Acid Reflex 0.9 mmol/L (0.4-2.0)
[2021-02-27 10:22] LABS: Alanine Aminotransferase 16 U/L (16-63); Alkaline Phosphatase 51 U/L (46-116); Anion Gap 11 mmol/L (8-16); Aspartate Amino Transferase 14 U/L (15-37); Bilirubin,Total 0.7 mg/dL (0.00-1.00); Blood Urea Nitrogen 36 mg/dL (7-18); Calcium 9.1 mg/dL (8.5-10.1); Carbon Dioxide 26 mmol/L (21-32); Chloride 105 mmol/L (98-108); Estimated Glomerular Filt Rate 32; Glucose 107 mg/dL (70-99); NT Pro B Type Natriuretic Pept 1356 pg/mL (0-450); Osmolality Calculated 302 mOsm/kg (285-295); Potassium 4.5 mmol/L (3.5-5.1); Sodium 142 mmol/L (136-145); Total Protein 6.8 g/dL (6.4-8.2)
[2021-02-27 10:22] LABS: CRP 6.7 mg/dL (0.0-0.9)
[2021-02-27 10:22] LABS: Influenza Control Valid (Valid); Troponin I 14.1 ng/L (0.00-60.4)
[2021-02-27] MEDS: SODIUM CHLORIDE 0.9% IV 1,000 ML 999 ML IV CONT ×2 (10:41→13:13)
[2021-02-27 10:45] LABS: SARS-CoV-2 RNA PCR Negative (Negative)
[2021-02-27 10:56] LABS: Add Urine Microscopic? YES; Appearance Urine Sl Cloudy (Clear); Bilirubin Urine Negative (Negative); Blood Urine 1+ (Negative); Color Urine Light Yellow (Yellow); Glucose Urine UA Negative (Negative); Ketones Urine Negative (Negative); Leukocyte Esterase Ur 2+ (Negative); Nitrate Urine Negative (Negative); Protein Urine Negative (Negative); Urobilinogen Urine 0.2 mg/dL (0.2-1.0); pH Urine 6.5 (5.0-8.0)
[2021-02-27 11:05] LABS: Bacteria Urine 2+ /hpf; Squamous Epithelial Cell Urine Few /hpf (Few); WBC Urine 31-50 /hpf (0-3)
[2021-02-27] MEDS: MENTHOL 10% / METHYL SALICYLATE 15% 57 GM TUBE 1 APPLIC TOPICAL (12:07)
--- NOTE | 2021-02-27 12:32 | PC.NURSE ---
DR. HOWARD CONTACTED [facility] AT [phone] FOR TRANSFER. [facility] CALL BACK AT [phone]. AWAITING BED PLACEMENT.
--- NOTE | 2021-02-27 16:05 | PC.NURSE ---
[id number] rn requests er hold. room 208 provided by stu tovar rn. telephone report provided to guy borja at 1600.
--- NOTE | 2021-02-27 17:14 | PC.NURSE ---
bed alarm on, rails up, hob up, in room and has brought bengay with her for his L knee pain, 02 on, carter to gravity
--- NOTE | 2021-02-27 18:20 | PC.NURSE ---
[facility] transfer line contacted for update on bed placement. b2b outside sales representative states they have not had any availabilities open pending discharges and it is unlikely pt will get bed placement tonight. fili tovar rn notified.
--- NOTE | 2021-02-27 19:11 | PC.NURSE ---
here to see patient. Vital signs now Q1H.
--- NOTE | 2021-02-27 23:45 | PC.NURSE ---
Pt. awakens easily when entering room, pt. is noted to ve A&O x3 and answers all questions appropriately. Pt. wanting a drink of water or ice chips. Call placed to ERP Dr. Kowalski and ordered changed to Reg diet for pt. Pt. tolerated ice chips and water s difficulty. Pt. then assisted to side lying position c pillows between knees. Pt. requested something for his feet/heels. Heel protectants placed. VSS. Mon. continues to show SR c 1st degree. Awaiting bed placement at [facility].
--- NOTE | 2021-02-28 02:30 | PC.NURSE ---
Received call from [facility] wanting updated VS and asked for any changes in patient's condition. Still no bed available @ this time. Expect to have bed available following discharges later today.
[2021-02-28 03:26] VITALS: BP 141/54; PULSE 63; RESP 18; TEMP 36.8; O2SAT 96
--- NOTE | 2021-02-28 03:53 | PC.NURSE ---
Pt. awake, given sips of water per pt request. Pt repositioned in bed c assist x2. VSS, call alvarado in reach.
[2021-02-28 05:20] LABS: Basophils Absolute Auto 0.02 K/mm3 (0.00-0.10); Basophils Percent Auto 0.2 % (0.0-1.0); Eosinophils Absolute Auto 0.21 K/mm3 (0.02-0.50); Eosinophils Percent Auto 2.3 % (1.0-6.0); Hematocrit 29.8 % (37.0-46.0); Immature Granulocyte Absolute 0.05 K/mm3 (0.00-0.00); Immature Granulocyte Percent A 0.6 % (0.0-0.0); Immature Platelet Fraction Pct 4.6 % (1.0-7.0); Lymphocytes Absolute Auto 0.64 K/mm3 (1.10-4.50); Lymphocytes Percent Auto 7.1 % (18.0-42.0); Mean Corpuscular HGB Conc 33.6 g/dL (32.0-36.0); Mean Corpuscular Hemoglobin 31.2 pg (27.0-31.0); Mean Corpuscular Volume 92.8 fL (78.0-102.0); Mean Platelet Volume 10.7 fl (8.7-11.0); Monocytes Absolute Auto 0.51 K/mm3 (0.10-0.90); Monocytes Percent Auto 5.7 % (2.0-11.0); Neutrophils Absolute Auto 7.6 K/mm3 (1.7-7.2); Neutrophils Percent Auto 84.1 % (50.0-70.0); Platelet Count Result 93 K/mm3 (150-420); Red Blood Count 3.21 M/mm3 (4.70-6.10)
[2021-02-28 05:38] LABS: Alanine Aminotransferase 15 U/L (16-63); Albumin Level 3.1 g/dL (3.4-5.0); Alkaline Phosphatase 40 U/L (46-116); Anion Gap 11 mmol/L (8-16); Aspartate Amino Transferase 13 U/L (15-37); Bilirubin,Total 0.7 mg/dL (0.00-1.00); Blood Urea Nitrogen 29 mg/dL (7-18); Calcium 8.6 mg/dL (8.5-10.1); Carbon Dioxide 24 mmol/L (21-32); Chloride 109 mmol/L (98-108); Estimated Glomerular Filt Rate 35; Glucose 86 mg/dL (70-99); Osmolality Calculated 302 mOsm/kg (285-295); Sodium 144 mmol/L (136-145); Total Protein 5.9 g/dL (6.4-8.2)
[2021-02-28 07:54] VITALS: BP 142/62; PULSE 60; RESP 20; TEMP 36.8; O2SAT 96
[2021-02-28 07:57] VITALS: O2SAT 96
--- NOTE | 2021-02-28 08:32 | PC.NURSE ---
Call to [facility] to check on bed availability, no bed at this time, will call when they have one
[2021-02-28] MEDS: PRAVASTATIN SODIUM 20 MG TABLET 80 MG PO (08:40)
[2021-02-28] MEDS: TAMSULOSIN HCL 0.4 MG CAPSULE PO (08:40)
[2021-02-28] MEDS: ASPIRIN 81 MG ENTERIC TABLET PO (08:40)
[2021-02-28] MEDS: FAMOTIDINE 20 MG TABLET PO ×2 (08:41→17:09)
--- NOTE | 2021-02-28 09:38 | PC.NURSE ---
patient arrouses easily this am. encouraged to wash face. repositioned and set up for breakfast. fed self all of breakfast and drank all of fluids. repositioned after breakfast to side and pillow between knees. carter drains bennett. hob up. talks to on phone. sr on tele shima borja
--- NOTE | 2021-02-28 11:48 | PC.NURSE ---
Dr Ludwig notified that family is requesting to be admitted here instead of transfer to [facility]
--- NOTE | 2021-02-28 13:53 | PC.NURSE ---
1230 turn and repositioned. hob up. pillow between knees heels kept off bed. carter drains. o2 in place. in and out.
[2021-02-28 16:00] VITALS: BP 158/62; PULSE 64; RESP 18; TEMP 37; O2SAT 95
[2021-02-28] MEDS: ACETAMINOPHEN 500 MG TABLET 1000 MG PO (17:06)
--- NOTE | 2021-02-28 17:57 | PC.NURSE ---
Patient initially stated he was not hungry when meal came, but ate about 50% of his meal, and drank 360 mL of milk.
--- NOTE | 2021-02-28 18:45 | PC.NURSE ---
Patient had large soft BM using bedpan
--- NOTE | 2021-02-28 19:23 | PC.NURSE ---
0900 feed self all of breakfast. voices no c/o. talks on phone to .
[2021-02-28] MEDS: GABAPENTIN 300 MG CAPSULE PO (20:12)
[2021-02-28] MEDS: polyethylene glycoL 3350 17 GM POWD.PACK PO (21:54)
[2021-03-01] VITALS (7 sets, daily range): BP systolic 179–198; BP diastolic 61–73; PULSE 64–70; RESP 18; TEMP 36.6–37.3; O2SAT 96
--- NOTE | 2021-03-01 01:25 | PM.IMPN ---
Progress Note: A&P Assessment and Plan (1) Community acquired pneumonia: Code(s): J18.9 - Pneumonia, unspecified organism Status: Acute Assessment and Plan: Will repeat chest x-ray tomorrow and carefully monitor his clinical progress. Transfer pending (2) Pyuria: Code(s): R82.81 - Pyuria Status: Acute Assessment and Plan: Culture negative however we will closely monitor his status as he was on antibiotics prior to admission and has a history of ESBL E coli. Will try to remove Andrew tomorrow. Subjective Date/time seen: 02/28/21 0800 patient denies any complaints this time. He states he feels a little better than yesterday. Denies chest pain and shortness of breath today. Patient and his inquired as to whether transfer was necessary. I explained the advantages of staying at [place] (Closer to family) as well as the disadvantages (complexity of care, losing place in line for admission when beds are very scarce at tertiary centers). My biggest concern was that given the complexity of his illness, i.e., pyuria and clinical pneumonia with a history of ESBL E coli, he might be better served or infectious disease and nephrology consult were available. It appears the patient was on oral antibiotics prior to admission Review of Systems Review of Systems: All systems reviewed & are unremarkable except as noted in HPI and below Constitutional: Constitutional: Denies chills and Denies fever(s) Cardiovascular: Cardiovascular: Denies chest pain and Denies dyspnea Respiratory: Respiratory: Denies chest congestion, Denies cough and Denies dyspnea Gastrointestinal: Gastrointestinal: Denies abdominal pain, Denies diarrhea, Denies nausea and Denies vomiting Genitourinary: Genitourinary: Denies dysuria and Denies flank pain Musculoskeletal: Musculoskeletal: Denies joint swelling Integumentary/Breasts: Skin/Breast: Denies rash Neurologic: Denies vertigo, Denies dizziness and Reports weakness Allergic/Immunologic: Allergic/Immunologic: Denies lip swelling and Denies throat swelling Exam Const: General: cooperative, alert, awake and Physically active; No acute distress Nutritional Appearance: overweight Orientation/consciousness: patient oriented x3 Limitations: no limitations HENMT: Head: normocephalic and atraumatic Throat: posterior oropharynx normal Resp: Effort & Inspection: normal respiratory effort, able to speak in complete sentences, no grunting, not labored and not tachypneic Auscultation: no crackles, no rales, no rhonchi and diminished lung sounds on the right in the lower lung negron Cardio: Rate: regular rate Rhythm: regular rhythm Heart sounds: no murmurs Peripheral pulses: Peripheral pulses 2+ throughout GI: GI Palp: No abdominal tenderness Auscultation: normal bowel sounds Skin: General skin exam: normal color and no rashes or lesions noted Neuro: General: tone normal, moves all extremities and CN's II-XI intact bilaterally Speech: normal speech Extrem: General: normal to inspection and no clubbing, cyanosis or edema Psych: Appearance: grossly normal and well kempt Mental Status: mental status grossly normal Affect: normal affect Attitude: cooperative Thought process: Normal thought process present Objective Data Vital Signs Vital Signs: Vital Signs - 24 hr 02/28/21 03:26 02/28/21 07:54 02/28/21 07:57 Temperature 36.8 C 36.8 C Pulse Rate 63 60 Respiratory Rate 18 20 Blood Pressure 141/54 H 142/62 H Pulse Oximetry 96 96 96 02/28/21 16:00 Temperature 37.0 C Pulse Rate 64 Respiratory Rate 18 Blood Pressure 158/62 H Pulse Oximetry 95 Intake/Output Intake/Output: Intake & Output 02/26/21 02/27/21 02/28/21 03/01/21 23:59 23:59 23:59 23:59 Intake Total 2350 1020 20 Output Total 1400 Balance 2350 -380 20 Meds/Results Medications: Active Medications Generic Name Dose Route Start Last Admin Trade Name Singh Ellis
--- NOTE | 2021-03-01 03:50 | PC.NURSE ---
[facility] called and was given an update on patient condition and vital signs.
--- NOTE | 2021-03-01 07:10 | PC.NURSE ---
pt taken in bed to xray dept for chest xray by 2 RN's
--- NOTE | 2021-03-01 07:25 | PC.NURSE ---
pt returned to room from xray
--- NOTE | 2021-03-01 08:30 | PC.NURSE ---
pt reports that he takes his Gabapentin at night and a Tramadol at night, reported this to head charger to inform doctor
[2021-03-01] MEDS: TAMSULOSIN HCL 0.4 MG CAPSULE PO (08:42)
[2021-03-01] MEDS: FAMOTIDINE 20 MG TABLET PO ×2 (08:42→17:11)
[2021-03-01] MEDS: PRAVASTATIN SODIUM 20 MG TABLET 80 MG PO (08:42)
[2021-03-01] MEDS: ASPIRIN 81 MG ENTERIC TABLET PO (08:42)
[2021-03-01] MEDS: DOCUSATE SODIUM 100 MG CAPSULE PO (08:42)
[2021-03-01] MEDS: polyethylene glycoL 3350 17 GM POWD.PACK PO (08:43)
[2021-03-01] MEDS: GABAPENTIN 300 MG CAPSULE PO (08:44)
--- NOTE | 2021-03-01 10:35 | PC.NURSE ---
pt assisted with bedpan, large brown soft stool.
--- NOTE | 2021-03-01 10:36 | PC.NURSE ---
Dr Ardon at bedside
[2021-03-01] MEDS: ACETAMINOPHEN 500 MG TABLET 1000 MG PO (10:42)
[2021-03-01] MEDS: DICYCLOMINE HCL 10 MG CAPSULE 20 MG PO (11:21)
--- NOTE | 2021-03-01 13:14 | PC.NURSE ---
pt resting in bed, denies any needs at this time, no evidence of distress noted
--- NOTE | 2021-03-01 17:07 | PC.NURSE ---
MD notified of patient's blood pressure being elevated. MD to place new orders.
--- NOTE | 2021-03-01 17:30 | PC.NURSE ---
Patient has a general diet. He ate about 25% of his meal, and drank 200 mL of fluid with his meal.
[2021-03-01] MEDS: carvediloL 12.5 MG TABLET PO (17:31)
[2021-03-01] MEDS: carvediloL 12.5 MG TABLET (19:04)
[2021-03-01] MEDS: traMADol HCL (*CRX) 50 MG TABLET PO (20:20)
[2021-03-01] MEDS: GABAPENTIN 300 MG CAPSULE 900 MG PO (20:20)
--- NOTE | 2021-03-01 21:30 | PC.NURSE ---
Call received from [facility] transfer department stating they have a bed available at [facility] Room 634 Bed B.
--- NOTE | 2021-03-01 22:21 | PC.NURSE ---
[facility] here to transfer patient to [facility] room 634B.
--- NOTE | 2021-03-01 22:25 | PC.NURSE ---
Patient was transferred to [facility]. Gave report to Jeevan Lopez on 6th floor. Gave information, including medical history, recent vitals, cardiac information, and pain history. Gave phone number where can be reached if needed. Called spouse and left message about transfer, giving room number [id number] as next location. Patient called and talked to her prior to transfer. Patient was medically stable, and transported by [facility]. Patient left at 2024.
== END 2021-03-01 22:27 | disposition short-term general hospital (02) ==
LOC: CHSED 16:48 → CHS2ND 16:53
PROVIDERS: Family Medicine; Emergency Provider Emergency Medicine
DX: J18.9 Pneumonia, unspecified organism (principal); R82.81 Pyuria; Z20.822 Contact with and (suspected) exposure to COVID-19; E78.5 Hyperlipidemia, unspecified; I50.9 Heart failure, unspecified; Z85.46 Personal history of malignant neoplasm of prostate
CPT/HCPCS: 36415; 36600; 70450; 71045; 71046; 71275; 80053; 81001; 82805; 83605; 83880; 84484; 85025; 85055; 85380; 85610; 86140; 87040; 87086; 87088; 87804; 93005; 96361; 96365; 96366; 96367; 99285; A9270; C9803; J0456; J2543; J7030; Q9967; U0003; U0005

== ENCOUNTER 2021-04-11 18:08 | Outpatient (NON) | payer MEDICARE, SELFPAY ==
[2021-04-11 18:47] LABS: Add Urine Microscopic? YES; Appearance Urine Cloudy (Clear); Bilirubin Urine Negative (Negative); Blood Urine 1+ (Negative); Color Urine Yellow (Yellow); Glucose Urine UA Negative (Negative); Ketones Urine Negative (Negative); Leukocyte Esterase Ur 3+ (Negative); Nitrate Urine Negative (Negative); Protein Urine Trace (Negative); Urobilinogen Urine 0.2 mg/dL (0.2-1.0)
[2021-04-11 18:52] LABS: Bacteria Urine 3+ /hpf; Squamous Epithelial Cell Urine None seen /hpf (Few); WBC Urine >75 /hpf (0-3)
== END 2021-04-11 18:09 | disposition home or self-care (01) ==
LOC: CHSLAB 18:10
PROVIDERS: PCP Internal Medicine; Visit Provider Internal Medicine
DX: R30.0 Dysuria (principal)
CPT/HCPCS: 81001; 87077; 87086; 87088; 87186

== ENCOUNTER 2021-04-16 22:06 | Emergency (ER) | payer MEDICARE, SELFPAY ==
[2021-04-16 22:10] VITALS: BP 185/74; PULSE 60; RESP 20; TEMP 36.9; O2SAT 94
--- NOTE | 2021-04-16 22:22 | ED.ALLEREA ---
HPI - Allergic Reaction General Chief complaint: Allergic Reaction Stated complaint: allergic reaction Source: patient and RN notes reviewed Mode of arrival: ambulatory Limitations: no limitations History of Present Illness complaint: allergic reaction and hives Onset (ago): hour(s) (14) Exposure: medication (cipro) Symptoms: rash and itching Severity: moderate Treatment prior to arrival: none Previous Allergic Reaction History: none Related Data Home Medications Medication Instructions Recorded Confirmed acetaminophen 650 mg PO Q8H PRN 08/14/20 04/16/21 Allergies Allergy/AdvReac Type Severity Reaction Status Date / Time heparin Allergy Severe HIT Verified 08/14/20 18:54 clonidine Allergy Itching Verified 08/14/20 17:48 mesalamine Allergy Rash Verified 08/14/20 17:43 Sulfa (Sulfonamide Allergy Rash Verified 08/14/20 17:42 Antibiotics) Review of Systems Review of Systems: All systems reviewed & are unremarkable except as noted in HPI and below Cardiovascular: Cardiovascular: Denies chest pain Respiratory: Respiratory: Denies dyspnea and Denies wheezing PMFSH Past Medical History Medical History Diverticulitis Dyslipidemia H/O congestive heart disease Hypertension Neurologic gait dysfunction Prostate cancer Renal insufficiency Surgical History Surgical History Heart valve replaced History of colon resection Family History Family History Father Cerebrovascular accident Sibling CAD (coronary artery disease) Social History Social History Smoking status: Never smoker Alcohol intake: never Substance use: never Substance use type: does not use Gender identity (if verbalized by the patient): Male Sexual Orientation (if Verbalized by the Patient): Straight or Heterosexual Spiritual care concerns: No Exam Const: General: healthy appearing and no acute distress Nutritional Appearance: well nourished Orientation/consciousness: patient oriented x3 HENMT: Head: normal to inspection Ears: external ears normal Eyes: Conjunctivae: conjunctivae normal Pupils: Equal, round and reactive pupils present EOM: EOMs intact bilaterally Neck: Neck: normal visual inspection Resp: Effort & Inspection: normal respiratory effort Auscultation: clear to auscultation bilaterally Cardio: Rate: regular rate Rhythm: regular rhythm Skin: General skin exam: normal color Rashes: rashes noted ( face right forearm anterior chest) urticaria multiple locations borders sharp and color; nontender Discharge Plan Discharge Clinical Impression: Allergic reaction Qualifiers: Encounter type: initial encounter Qualified Code(s): T78.40XA - Allergy, unspecified, initial encounter Patient Disposition: Home, Self-Care Condition: Stable Additional Instructions: stop Cipro, can use Benadryl 25 mg every 8 hours as needed for itching. Get it [id number]. Prescriptions: New cephalexin 500 mg tablet 500 mg PO Q8H 7 Days Qty: 21 RF: 0 No Action acetaminophen 650 mg Tablet 650 mg PO Q8H PRN (Reason: Pain (Scale Score 1-3)) RF: 0 carvedilol 12.5 mg Tablet 12.5 mg PO BID Qty: 60 RF: 0 cyanocobalamin (vitamin B-12) 1,000 mcg Tablet 1,000 mcg PO DAILY Qty: 30 RF: 0 famotidine [Pepcid] 20 mg Tablet 20 mg PO BID Qty: 60 RF: 0 pravastatin 80 mg Tablet 80 mg PO DAILY Qty: 30 RF: 0 tamsulosin [Flomax] 0.4 mg Capsule 0.4 mg PO DAILY Qty: 30 RF: 0 sodium bicarbonate 650 mg Tablet 650 mg PO BID Qty: 60 RF: 0 amlodipine 10 mg Tablet 10 mg PO DAILY Qty: 30 RF: 0 ferrous sulfate 325 mg (65 mg iron) Tablet 325 mg PO QMWF Qty: 90 RF: 0 lisinopril 10 mg Tablet 10 mg PO DAILY Qty: 30 RF: 0 docusate sodium [Colace] 100 mg Capsul
[2021-04-16] MEDS: diphenhydrAMINE HCl CAP 25 MG CAPSULE PO (22:35)
[2021-04-16 22:36] VITALS: BP 185/84; PULSE 60; RESP 20; TEMP 36.9; O2SAT 94
== END 2021-04-16 22:37 | disposition home or self-care (01) ==
PROVIDERS: Emergency Provider Emergency Medicine; PCP Internal Medicine
DX: T78.40XA Allergy, unspecified, initial encounter (principal); E78.5 Hyperlipidemia, unspecified; I10 Essential (primary) hypertension; Z85.46 Personal history of malignant neoplasm of prostate
CPT/HCPCS: 99283; A9270

== ENCOUNTER 2021-07-19 06:15 | Outpatient (NON) | payer MEDICARE, SELFPAY ==
[2021-07-19 06:51] LABS: Appearance Urine Clear (Clear); Bilirubin Urine Negative (Negative); Blood Urine Negative (Negative); Glucose Urine UA Negative (Negative); Ketones Urine Negative (Negative); Leukocyte Esterase Ur 2+ LEU/UL (Negative); Nitrate Urine Negative (Negative); Protein Urine Negative (Negative); Urobilinogen Urine 0.2 mg/dL (0.2-1.0)
[2021-07-19 06:59] LABS: Add Urine Microscopic? YES; Color Urine Straw (Yellow)
[2021-07-19 07:00] LABS: Bacteria Urine 2+ /hpf; RBC Urine None seen /hpf (0-2)
== END 2021-07-19 06:16 | disposition home or self-care (01) ==
LOC: CHSLAB 06:22
PROVIDERS: Visit Provider Internal Medicine
DX: R82.90 Unspecified abnormal findings in urine (principal)
CPT/HCPCS: 81001; 87086; 87088

== ENCOUNTER 2021-09-10 10:31 | Outpatient (CLI) | payer MEDICARE, SELFPAY ==
[2021-09-10 11:09] LABS: Basophils Absolute Auto 0.03 K/mm3 (0.00-0.10); Basophils Percent Auto 0.7 % (0.0-1.0); Eosinophils Absolute Auto 0.09 K/mm3 (0.02-0.50); Eosinophils Percent Auto 2.2 % (1.0-6.0); Hematocrit 36.3 % (37.0-46.0); Immature Granulocyte Absolute 0.04 K/mm3 (0.00-0.00); Immature Platelet Fraction Pct 7.7 % (1.0-7.0); Lymphocytes Absolute Auto 0.81 K/mm3 (1.10-4.50); Lymphocytes Percent Auto 19.8 % (18.0-42.0); Mean Corpuscular HGB Conc 33.1 g/dL (32.0-36.0); Mean Corpuscular Hemoglobin 32.2 pg (27.0-31.0); Mean Corpuscular Volume 97.3 fL (78.0-102.0); Mean Platelet Volume 9.9 fl (8.7-11.0); Monocytes Absolute Auto 0.33 K/mm3 (0.10-0.90); Neutrophils Absolute Auto 2.8 K/mm3 (1.7-7.2); Neutrophils Percent Auto 68.3 % (50.0-70.0); Platelet Count Result 66 K/mm3 (150-420); Red Blood Count 3.73 M/mm3 (4.70-6.10); Red Cell Distribution Width 14.2 % (11.6-14.4); White Blood Count 4.1 K/mm3 (4.8-10.8)
[2021-09-10 11:10] LABS: Appearance Urine Sl Cloudy (Clear); Bilirubin Urine Negative (Negative); Color Urine Light Yellow (Yellow); Glucose Urine UA Negative (Negative); Ketones Urine Negative (Negative); Leukocyte Esterase Ur 3+ (Negative); Nitrate Urine Positive (Negative); Protein Urine Negative (Negative); Specific Grav Ur 1.015 (1.010-1.020); Urobilinogen Urine 0.2 mg/dL (0.2-1.0); pH Urine 6.5 (5.0-8.0)
[2021-09-10 11:20] LABS: Creatinine Urine 74.77 mg/dL (40-278); Total Protein Urine Random 24.8 mg/dL (0.0-11.9); Ur Ttl Prot Creatinine Ratio 0.33 mg/mg (0-0.20)
[2021-09-10 11:26] LABS: Add Urine Microscopic? YES; Blood Urine Trace-Intact (Negative); RBC Urine 0-2 /hpf (0-2); WBC Urine >75 /hpf (0-3)
[2021-09-10 11:27] LABS: Bacteria Urine 4+ /hpf; Squamous Epithelial Cell Urine Few /hpf (Few)
[2021-09-10 12:16] LABS: Alanine Aminotransferase 15 U/L (16-63); Albumin Level 4.1 g/dL (3.4-5.0); Alkaline Phosphatase 41 U/L (46-116); Anion Gap 9 mmol/L (8-16); Aspartate Amino Transferase 11 U/L (15-37); Bilirubin,Total 0.4 mg/dL (0.00-1.00); Blood Urea Nitrogen 24 mg/dL (7-18); Calcium 9.1 mg/dL (8.5-10.1); Carbon Dioxide 28 mmol/L (21-32); Chloride 105 mmol/L (98-108); Estimated Glomerular Filt Rate 35; Ferritin 108 ng/mL (26-388); Folic Acid 5.5 ng/mL (8.6->20); Glucose 86 mg/dL (70-99); Osmolality Calculated 297 mOsm/kg (285-295); Phosphorus 3.9 mg/dL (2.6-4.7); Potassium 4.5 mmol/L (3.5-5.1); Sodium 142 mmol/L (136-145); Total Protein 6.9 g/dL (6.4-8.2); Uric Acid 6.9 mg/dL (3.5-7.2); Vitamin B12 452 pg/mL (193-986)
[2021-09-12 13:31] LABS: Parathyroid Intact 37 pg/mL (14-64)
[2021-09-14 14:44] LABS: Vitamin D 25 Hydroxy 47 ng/mL (30-100)
== END 2021-09-10 10:32 | disposition home or self-care (01) ==
LOC: CHSLAB 10:33
PROVIDERS: PCP Internal Medicine; Visit Provider Internal Medicine Nephrology
DX: D64.9 Anemia, unspecified (principal); I12.9 Hypertensive chronic kidney disease with stage 1 through stage 4 chronic kidney disease, or unspecified chronic kidney disease; N18.30 Chronic kidney disease, stage 3 unspecified; R82.90 Unspecified abnormal findings in urine
CPT/HCPCS: 36415; 80053; 81001; 82306; 82570; 82607; 82728; 82746; 83970; 84100; 84156; 84550; 85025; 85055; 87086; 87088

== ENCOUNTER 2022-06-30 10:47 | Outpatient (CLI) | payer MEDICARE, SELFPAY ==
[2022-06-30 11:18] LABS: Basophils Absolute Auto 0.01 K/mm3 (0.00-0.10); Basophils Percent Auto 0.3 % (0.0-1.0); Eosinophils Absolute Auto 0.09 K/mm3 (0.02-0.50); Eosinophils Percent Auto 2.3 % (1.0-6.0); Hematocrit 30.5 % (37.0-46.0); Hemoglobin 9.7 g/dL (12.4-15.3); Immature Granulocyte Absolute 0.06 K/mm3 (0.00-0.00); Immature Granulocyte Percent A 1.5 % (0.0-0.0); Immature Platelet Fraction Pct 9.1 % (1.0-7.0); Lymphocytes Absolute Auto 0.81 K/mm3 (1.10-4.50); Lymphocytes Percent Auto 20.5 % (18.0-42.0); Mean Corpuscular HGB Conc 31.8 g/dL (32.0-36.0); Mean Corpuscular Hemoglobin 31.6 pg (27.0-31.0); Mean Corpuscular Volume 99.3 fL (78.0-102.0); Mean Platelet Volume 9.9 fl (8.7-11.0); Monocytes Absolute Auto 0.37 K/mm3 (0.10-0.90); Monocytes Percent Auto 9.3 % (2.0-11.0); Neutrophils Absolute Auto 2.6 K/mm3 (1.7-7.2); Neutrophils Percent Auto 66.1 % (50.0-70.0); Platelet Count Result 61 K/mm3 (150-420); Red Blood Count 3.07 M/mm3 (4.70-6.10); Red Cell Distribution Width 14.6 % (11.6-14.4)
[2022-06-30 11:30] LABS: Appearance Urine Slightly Cloudy (Clear); Bilirubin Urine Negative (Negative); Blood Urine 1+ (Negative); Glucose Urine UA Negative (Negative); Ketones Urine Negative (Negative); Leukocyte Esterase Ur 2+ LEU/UL (Negative); Nitrate Urine Negative (Negative); Protein Urine Negative (Negative); Urobilinogen Urine 0.2 mg/dL (0.2-1.0)
[2022-06-30 11:31] LABS: Creatinine Urine 90.28 mg/dL (40-278); Total Protein Urine Random 25.7 mg/dL (0.0-11.9); Ur Ttl Prot Creatinine Ratio 0.28 mg/mg (0-0.20)
[2022-06-30 11:49] LABS: Add Urine Microscopic? YES; Bacteria Urine 3+ /hpf; Color Urine Light Yellow (Yellow); Squamous Epithelial Cell Urine Few /hpf (Few); WBC Urine 31-50 /hpf (0-3)
[2022-06-30 12:11] LABS: Alanine Aminotransferase 14 U/L (16-63); Alkaline Phosphatase 41 U/L (46-116); Anion Gap 8 mmol/L (8-16); Aspartate Amino Transferase < 10 U/L (15-37); Bilirubin,Total 0.3 mg/dL (0.00-1.00); Blood Urea Nitrogen 29 mg/dL (7-18); Calcium 8.9 mg/dL (8.5-10.1); Carbon Dioxide 28 mmol/L (21-32); Chloride 108 mmol/L (98-108); Estimated Glomerular Filt Rate 40; Ferritin 124 ng/mL (26-388); Folic Acid 9.9 ng/mL (8.6->20); Glucose 92 mg/dL (70-99); Osmolality Calculated 303 mOsm/kg (285-295); Phosphorus 3.9 mg/dL (2.6-4.7); Potassium 4.3 mmol/L (3.5-5.1); Sodium 144 mmol/L (136-145); Uric Acid 6.5 mg/dL (3.5-7.2); Vitamin B12 391 pg/mL (193-986)
[2022-07-02 20:55] LABS: Vitamin D 25 Hydroxy 54 ng/mL (30-100)
[2022-07-03 21:03] LABS: Parathyroid Intact 33 pg/mL (14-64)
== END 2022-06-30 10:48 | disposition home or self-care (01) ==
LOC: CHSLAB 10:52
PROVIDERS: PCP Internal Medicine; Visit Provider Internal Medicine Nephrology
DX: D64.9 Anemia, unspecified (principal); I12.9 Hypertensive chronic kidney disease with stage 1 through stage 4 chronic kidney disease, or unspecified chronic kidney disease; N18.30 Chronic kidney disease, stage 3 unspecified; D69.6 Thrombocytopenia, unspecified; R33.9 Retention of urine, unspecified
CPT/HCPCS: 36415; 80053; 81001; 82306; 82570; 82607; 82728; 82746; 83970; 84100; 84156; 84550; 85025; 85055; 87077; 87086; 87088; 87186

== ENCOUNTER 2022-09-26 09:50 | Outpatient (CLI) | payer MEDICARE, SELFPAY ==
[2022-09-26 10:01] LABS: Add Urine Microscopic? YES; Appearance Urine Clear (Clear); Bilirubin Urine Negative (Negative); Blood Urine 1+ (Negative); Color Urine Light Yellow (Yellow); Glucose Urine UA Negative (Negative); Ketones Urine Negative (Negative); Leukocyte Esterase Ur 2+ LEU/UL (Negative); Nitrate Urine Positive (Negative); Protein Urine Negative (Negative); Urobilinogen Urine 0.2 mg/dL (0.2-1.0)
[2022-09-26 10:07] LABS: Bacteria Urine 3+ /hpf; Squamous Epithelial Cell Urine Few /hpf (Few); WBC Urine 21-30 /hpf (0-3)
== END 2022-09-26 09:51 | disposition home or self-care (01) ==
LOC: CHSLAB 09:52
PROVIDERS: PCP Internal Medicine; Visit Provider Internal Medicine
DX: R30.0 Dysuria (principal)
CPT/HCPCS: 81001; 87077; 87086; 87088; 87186

== ENCOUNTER 2022-10-26 11:46 | Outpatient (CLI) | payer MEDICARE, SELFPAY | END 2022-10-26 11:47 | disposition home or self-care (01) | PROVIDERS: PCP Internal Medicine; Visit Provider Internal Medicine Nephrology | DX: D64.9 Anemia, unspecified (principal); N18.30 Chronic kidney disease, stage 3 unspecified; I12.9 Hypertensive chronic kidney disease with stage 1 through stage 4 chronic kidney disease, or unspecified chronic kidney disease; N39.0 Urinary tract infection, site not specified | CPT/HCPCS: 99199; 81002; 82570 ==

== ENCOUNTER 2023-02-27 10:10 | Outpatient (CLI) | payer MEDICARE, SELFPAY ==
[2023-02-27 10:22] LABS: Appearance Urine Clear (Clear); Bilirubin Urine Negative (Negative); Blood Urine 2+ (Negative); Color Urine Light Yellow (Yellow); Glucose Urine UA Negative (Negative); Ketones Urine Negative (Negative); Leukocyte Esterase Ur 3+ LEU/UL (Negative); Nitrate Urine Positive (Negative); Protein Urine Negative (Negative); Specific Grav Ur 1.015 (1.010-1.020); Urobilinogen Urine 0.2 mg/dL (0.2-1.0)
[2023-02-27 10:27] LABS: Add Urine Microscopic? YES
[2023-02-27 10:28] LABS: Bacteria Urine 3+ /hpf; Squamous Epithelial Cell Urine Occasional /hpf (Few); WBC Urine 31-50 /hpf (0-3)
[2023-02-27 10:29] LABS: Creatinine Urine 82.04 mg/dL (40-278); Total Protein Urine Random 29.3 mg/dL (0.0-11.9); Ur Ttl Prot Creatinine Ratio 0.36 mg/mg (0-0.20)
== END 2023-02-27 10:11 | disposition home or self-care (01) ==
LOC: CHSLAB 10:14
PROVIDERS: PCP Internal Medicine; Visit Provider Internal Medicine Nephrology
DX: N39.0 Urinary tract infection, site not specified (principal); R33.9 Retention of urine, unspecified; R82.90 Unspecified abnormal findings in urine
CPT/HCPCS: 81001; 82570; 84156; 87077; 87086; 87088; 87186

== ENCOUNTER 2023-05-14 11:20 | Outpatient (CLI) | payer MEDICARE, SELFPAY ==
[2023-05-14 11:30] LABS: Appearance Urine Clear (Clear); Bilirubin Urine Negative (Negative); Blood Urine 2+ (Negative); Color Urine Light Yellow (Yellow); Glucose Urine UA Negative (Negative); Ketones Urine Negative (Negative); Leukocyte Esterase Ur 2+ (Negative); Nitrate Urine Positive (Negative); Protein Urine Negative (Negative); Urobilinogen Urine 0.2 mg/dL (0.2-1.0); pH Urine 5.5 (5.0-8.0)
[2023-05-14 11:35] LABS: Add Urine Microscopic? YES; Bacteria Urine 1+ /hpf; Squamous Epithelial Cell Urine Few /hpf (Few); WBC Urine 51-100 /hpf (0-3)
== END 2023-05-14 11:21 | disposition home or self-care (01) ==
LOC: CHSLAB 11:23
PROVIDERS: PCP Internal Medicine; Visit Provider Internal Medicine
DX: R82.90 Unspecified abnormal findings in urine (principal); R10.9 Unspecified abdominal pain
CPT/HCPCS: 81001; 87077; 87086; 87088; 87186

== ENCOUNTER 2023-07-01 11:03 | Outpatient (CLI) | payer MEDICARE, SELFPAY ==
[2023-07-01 11:14] LABS: Appearance Urine Clear (Clear); Bilirubin Urine Negative (Negative); Blood Urine 1+ (Negative); Color Urine Light Yellow (Yellow); Glucose Urine UA Negative (Negative); Ketones Urine Negative (Negative); Leukocyte Esterase Ur 2+ (Negative); Nitrate Urine Negative (Negative); Protein Urine Negative (Negative); Specific Grav Ur 1.015 (1.010-1.020); Urobilinogen Urine 0.2 mg/dL (0.2-1.0)
[2023-07-01 11:21] LABS: Add Urine Microscopic? YES; WBC Urine 16-20 /hpf (0-3)
[2023-07-01 11:22] LABS: Bacteria Urine 4+ /hpf
== END 2023-07-01 11:04 | disposition home or self-care (01) ==
PROVIDERS: PCP Internal Medicine
DX: R39.9 Unspecified symptoms and signs involving the genitourinary system (principal)
CPT/HCPCS: 81001; 87077; 87086; 87088; 87186

== ENCOUNTER 2023-07-06 18:40 | Emergency (ER) | payer MEDICARE, SELFPAY ==
[2023-07-06 18:47] VITALS: BP 162/55; PULSE 86; RESP 20; TEMP 36.7; O2SAT 96
--- NOTE | 2023-07-06 18:58 | ED.GENADULT ---
HPI - General Adult General Chief complaint: Weakness Stated complaint: Low BP Time Seen by Provider: 07/06/23 18:58 Source: patient and family Mode of arrival: ambulatory Limitations: no limitations History of Present Illness HPI narrative: 87 years old white male came to the emergency room by private car with his daughter who is telling me that the patient blood pressure at home was 91/55 1 hour prior to arrival to the emergency room. Patient is asymptomatic. He denies any headache, shortness of breath, chest pain, lightheadedness, dizziness or near syncope. Blood pressure on arrival to the ED is 162/55. Patient was seen by his family physician 1 week ago, used to be on 2.5 mg of amlodipine daily, blood pressure was elevated at that time, amlodipine increased to 5 mg once a day. Patient did not understand the instruction and has been taking 7.5 mg daily for the last 7 days. Related Data Home Medications Medication Instructions Recorded Confirmed acetaminophen 650 mg tablet 650 mg PO Q8H PRN Pain (Scale 08/14/20 07/06/23 Score 1-3) amlodipine 10 mg tablet 5 mg PO DAILY 07/06/23 07/06/23 lisinopril 10 mg tablet 20 mg PO DAILY 07/06/23 07/06/23 tramadol 50 mg tablet 50 mg PO HS 07/06/23 07/06/23 Allergies Allergy/AdvReac Type Severity Reaction Status Date / Time heparin Allergy Severe HIT Verified 07/06/23 18:56 clonidine Allergy Itching Verified 07/06/23 18:56 mesalamine Allergy Rash Verified 07/06/23 18:56 Sulfa (Sulfonamide Allergy Rash Verified 07/06/23 18:56 Antibiotics) Review of Systems Review of Systems: All systems reviewed & are unremarkable except as noted in HPI and below PMFSH Past Medical History Medical History Diverticulitis Dyslipidemia H/O congestive heart disease Hypertension Neurologic gait dysfunction Prostate cancer Renal insufficiency Surgical History Surgical History Heart valve replaced History of colon resection Family History Family History Father Cerebrovascular accident Sibling CAD (coronary artery disease) Social History Social History Smoking status: Never smoker Alcohol intake: never Substance use: never Substance use type: does not use Living arrangements: with family Occupation/Education: retired Gender identity (if verbalized by the patient): Male Sexual Orientation (if Verbalized by the Patient): Straight or Heterosexual Spiritual care concerns: No Exam Narrative: General appearance: Well-developed, well-nourished Skin: Normal color Head: Normocephalic, nontraumatic Eyes: Clear conjunctiva ENT: Oropharynx normal, ears normal, nose normal Neck: Supple, nontender Chest and respiratory: Airway patent, no respiratory distress, no accessory muscle use Heart: Regular rate/rhythm Abdomen: Soft, nontender, no organomegaly, quiet bowel sounds Vascular: Normal peripheral pulses, normal capillary refill. Musculoskeletal: Normal range of motion, nontender back Neurologic: Alert and oriented ?3, PROGRAM ADMIN is normal as tested, no gross motor deficit Course Reevaluation(s) Reevaluation #1: Patient is still asymptomatic, was able to stand up and walk in the emergency room for a while without any symptoms. Date: 07/06/23 Time: 19:02 Vital Signs Vital signs: Vital Signs Temperature 36.7 C 07/06/23 18:47 Pulse Rate 86 07/06/23 18:47 Respiratory Rate 20 07/06/23 18:47 Blood Pressure 162/55 H 07/06/23 18:47 Pulse Oximetry 96 07/06/23 18:47
[2023-07-06 19:20] VITALS: BP 162/53; PULSE 60; RESP 16
== END 2023-07-06 19:30 | disposition home or self-care (01) ==
PROVIDERS: Emergency Provider Emergency Medicine
DX: I11.0 Hypertensive heart disease with heart failure (principal); I50.9 Heart failure, unspecified; E78.5 Hyperlipidemia, unspecified; Z85.46 Personal history of malignant neoplasm of prostate; Z79.891 Long term (current) use of opiate analgesic; Z79.899 Other long term (current) drug therapy
CPT/HCPCS: 99283

== ENCOUNTER 2023-07-23 12:39 | Outpatient (CLI) | payer MEDICARE, SELFPAY ==
[2023-07-23 12:52] LABS: Appearance Urine Slightly Cloudy (Clear); Bilirubin Urine Negative (Negative); Blood Urine Trace-Intact (Negative); Color Urine Light Yellow (Yellow); Glucose Urine UA Negative (Negative); Ketones Urine Negative (Negative); Leukocyte Esterase Ur 2+ (Negative); Nitrate Urine Negative (Negative); Protein Urine Negative (Negative); Urobilinogen Urine 0.2 mg/dL (0.2-1.0); pH Urine 5.5 (5.0-8.0)
[2023-07-23 13:25] LABS: Add Urine Microscopic? YES; RBC Urine 0-2 /hpf (0-2); WBC Urine 31-50 /hpf (0-3)
[2023-07-23 13:26] LABS: Bacteria Urine 3+ /hpf
== END 2023-07-23 12:40 | disposition home or self-care (01) ==
LOC: CHSLAB 12:42
PROVIDERS: PCP Internal Medicine; Visit Provider Internal Medicine
DX: R39.9 Unspecified symptoms and signs involving the genitourinary system (principal)
CPT/HCPCS: 81001; 87077; 87086; 87088; 87186

== ENCOUNTER 2023-10-08 11:33 | Outpatient (CLI) | payer MEDICARE, SELFPAY ==
[2023-10-08 11:44] LABS: Appearance Urine Clear (Clear); Bilirubin Urine Negative (Negative); Blood Urine 2+ (Negative); Color Urine Yellow (Yellow); Glucose Urine UA Negative (Negative); Ketones Urine Negative (Negative); Leukocyte Esterase Ur 2+ (Negative); Nitrate Urine Negative (Negative); Protein Urine Trace (Negative); Urobilinogen Urine 0.2 mg/dL (0.2-1.0); pH Urine 5.5 (5.0-8.0)
[2023-10-08 12:10] LABS: Add Urine Microscopic? YES
[2023-10-08 12:11] LABS: Bacteria Urine 3+ /hpf; WBC Urine >75 /hpf (0-3)
== END 2023-10-08 11:34 | disposition home or self-care (01) ==
LOC: CHSLAB 11:36
PROVIDERS: PCP Internal Medicine; Visit Provider Internal Medicine
DX: R30.0 Dysuria (principal)
CPT/HCPCS: 81001; 87077; 87086; 87088; 87186

== ENCOUNTER 2023-10-29 11:11 | Outpatient (CLI) | payer MEDICARE, SELFPAY ==
[2023-10-29 11:27] LABS: Appearance Urine Clear (Clear); Bilirubin Urine Negative (Negative); Blood Urine Trace-intact (Negative); Color Urine Yellow (Yellow); Glucose Urine UA Negative (Negative); Ketones Urine Negative (Negative); Leukocyte Esterase Ur 2+ LEU/UL (Negative); Nitrate Urine Negative (Negative); Protein Urine Negative (Negative); Specific Grav Ur 1.015 (1.010-1.020); Urobilinogen Urine 0.2 mg/dL (0.2-1.0)
[2023-10-29 11:42] LABS: Add Urine Microscopic? YES; RBC Urine 0-2 /hpf (0-2); Squamous Epithelial Cell Urine Few /hpf (Few); WBC Urine 31-50 /hpf (0-3)
[2023-10-29 11:43] LABS: Bacteria Urine 3+ /hpf
== END 2023-10-29 11:12 | disposition home or self-care (01) ==
LOC: CHSLAB 11:15
PROVIDERS: PCP Internal Medicine; Visit Provider Internal Medicine
DX: R30.0 Dysuria (principal)
CPT/HCPCS: 81001; 87077; 87086; 87088; 87186

== ENCOUNTER 2024-03-01 18:46 | Emergency (ER) | payer MEDICARE, SELFPAY ==
[2024-03-01] VITALS (20 sets, daily range): BP systolic 123–157; BP diastolic 52–69; PULSE 59–76; RESP 11–19; TEMP 36.2; O2SAT 96–99
--- NOTE | 2024-03-01 20:07 | ED.DIZZY ---
HPI - Dizziness General Chief Complaint: Dizziness Stated Complaint: hypotension Time Seen by Provider: 03/01/24 18:59 Source: patient Mode of arrival: ambulatory Limitations: no limitations History of Present Illness HPI Narrative: Patient is a 8-year-old male with significant past medical history presents today with hypertension. Patient with his and their daughter and the states that she took his blood pressure today and was 90/52. She was worried and called ambulance and he was brought in by EMS. He has a known history of hypertension and takes lisinopril, carvedilol, Norvasc. He did have very hard to control blood pressure in the past this is romano on 3 blood pressure medications. He also history of valve replacement and he has a pacemaker. When he had a low blood pressure today he apparently was a little bit dizzy at that time. The dizziness has completely subsided his blood pressure was 126/58 upon arrival here in the emergency department. MD elicited complaint: dizziness Pertinent past history: pacemaker Onset (ago): hour(s) Timing: sudden onset Description: lightheadedness Context: change in body position History of similar symptoms: No Exacerbating factors: change in body position Relieving factors: remaining still and rehydration Associated symptoms: denies other symptoms Related Data Home Medications Medication Instructions Recorded Confirmed acetaminophen 650 mg tablet 650 mg PO Q8H PRN Pain (Scale 08/14/20 07/06/23 Score 1-3) amlodipine 10 mg tablet 5 mg PO DAILY 07/06/23 07/06/23 lisinopril 10 mg tablet 20 mg PO DAILY 07/06/23 07/06/23 tramadol 50 mg tablet 50 mg PO HS 07/06/23 07/06/23 Allergies Allergy/AdvReac Type Severity Reaction Status Date / Time heparin Allergy Severe HIT Verified 07/06/23 18:56 clonidine Allergy Itching Verified 07/06/23 18:56 mesalamine Allergy Rash Verified 07/06/23 18:56 Sulfa (Sulfonamide Allergy Rash Verified 07/06/23 18:56 Antibiotics) Review of Systems Review of Systems: All systems reviewed & are unremarkable except as noted in HPI and below Constitutional: Constitutional: Reports as per HPI Eyes: Eyes: Reports no additional eye complaints ENT: Reports system reviewed and no additional complaints, except as documented Cardiovascular: Cardiovascular: Reports as per HPI Respiratory: Respiratory: Reports no additional respiratory complaints Gastrointestinal: Gastrointestinal: Reports no additional gastrointestinal complaints Genitourinary: Genitourinary: Reports no additional male genitourinary complaints Musculoskeletal: Musculoskeletal: Reports no additional musculoskeletal complaints Integumentary/Breasts: Skin/Breast: Reports system reviewed and no additional complaints, except as docu Neurologic: Reports system reviewed and no additional complaints, except as documented Psychiatric: Psychiatric: Reports no additional psychiatric complaints Endocrine: Endocrine: Reports no additional endocrine complaints Hematologic/Lymphatic: Hematologic/Lymphatic: Reports no additional hematologic/lymphatic complaints Allergic/Immunologic: Allergic/Immunologic: Reports no additional allergic/immunologic complaints [facility] Past Medical History Medical History Diverticulitis Dyslipidemia H/O congestive heart disease Hypertension Neurologic gait dysfunction Prostate cancer Renal insufficiency Surgical History Surgical History Heart valve replaced History of colon resection Family History Family History Father Cerebrovascular accident Sibling CAD (coronary artery disease) Social History Social History Smoking status: Never smoker Alcohol intake: never Substance use: never Substance use type: does not use Living a
== END 2024-03-01 21:15 | disposition home or self-care (01) ==
PROVIDERS: Emergency Provider Family Medicine
DX: I11.0 Hypertensive heart disease with heart failure (principal); I50.9 Heart failure, unspecified; I95.1 Orthostatic hypotension; I35.0 Nonrheumatic aortic (valve) stenosis; E78.5 Hyperlipidemia, unspecified
CPT/HCPCS: 99284

== ENCOUNTER 2024-04-27 10:07 | Inpatient (IN) | payer MEDICARE, SELFPAY ==
[2024-04-27] VITALS (33 sets, daily range): BP systolic 133–168; BP diastolic 56–71; PULSE 70–97; RESP 7–20; TEMP 37.3–37.7; O2SAT 91–99; BMI 28.6
--- NOTE | ~2024-04-27 | CT_ITS ---
EXAMINATION: CT brain wo con DATE: 04/27/2024 11:05 INDICATION: Generalized weakness. Confusion. TECHNIQUE: Computed tomography (CT) of the head was performed without intravenous contrast. The mA wa s adjusted according to patient size. Iterative reconstruction technique was employed. The dose-lengt h product was 605.33 mGy-cm. 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 There are scattered areas of low attenuat ion in the cerebral white matter, which is within normal limits for the patient's age. There is no in tracranial hemorrhage, acute infarction, or abnormal intracranial mass lesion. The ventricles are nor mal in size. There is mild mucosal thickening in the paranasal sinuses. The mastoid air cells are nor mal. IMPRESSION: 1. 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 Reviewed, dictated and finalized at location A.
--- NOTE | ~2024-04-27 | XR_ITS ---
EXAMINATION: XR chest 1V portable DATE: 04/27/2024 11:05 INDICATION: Generalized weakness. Confusion. TECHNIQUE: A single frontal view of the chest was obtained on 2 radiographs. COMPARISON: Chest 2 views 03/01/2021, chest CT 02/27/2021 FINDINGS: A calcified right lung nodule is consistent with old granulomatous disease. No pleural effu jarrett or pneumothorax. The heart size is normal. There is a left chest wall pacer with leads in the ri ght atrium and right ventricle. There are changes of aortic valve replacement. IMPRESSION: 1. No acute cardiopulmonary disease. Reviewed, dictated and finalized at location A.
--- NOTE | ~2024-04-27 | NM_ITS ---
EXAMINATION: NM lung vent and perfusion DATE: 04/27/2024 17:06 INDICATION: Weakness post Covid booster TECHNIQUE: 33.6 mCi Tc-99m DTPA by inhalation and 4.8 mCi Tc-99m MAA by intravenous route. Scintigra phic images of the chest were obtained. COMPARISON: No recent imaging for comparison. FINDINGS: Matched photopenic defect on the ventilation and perfusion images along the anterolateral left upper lobe corresponding to a pacemaker on radiographs from 03/01/2021. There is otherwise homogeneous radio tracer activity throughout the lungs on the ventilation images. There is otherwise relatively homogen eous perfusion throughout the lungs. No discrete ventilation and perfusion mismatch is identified. IMPRESSION: 1. Low probability for pulmonary embolism. Reviewed, dictated and finalized at location B.
--- NOTE | ~2024-04-27 | CT_ITS ---
CT abdomen pelvis wo con Ordering provider: Lacy Hogue APRN History: 88 years Male with . UTI/ISHAAN/Febrile . Comparison: Technique: CT abdomen and pelvis without IV and without oral contrast. Automated exposure control and iterative reconstruction technique were employed. The dose-length product was 854.96 mGy-cm. Findings: VISUALIZED LOWER CHEST: Bilateral atelectatic changes seen posteriorly with possible right pleural th ickening or minimal effusion. Slight cardiomegaly. UPPER ABDOMINAL ORGANS: Liver: Normal. Gallbladder: Normal. Spleen: Benign calcifications. Stomach/duodenum: Normal. Pancreas: Normal. Adrenals: Normal. Kidneys: Atrophic right kidney. Multiple stones in the right kidney. Isodense lesion seen in the left kidney lower pole anteriorly measuring 2.1 x 2.4 cm which may be a c omplex cyst or a mass. Ultrasound evaluation advised. PELVIC ORGANS: The bladder is underfilled with thickened wall and fundus catheter. Clinical correlati on advised.. BOWEL AND MESENTERY: Colon: No evidence of diverticulitis. Appendix is not well demonstrated. Fecal material is loaded in the colon suggestive of patient. Small Bowel: Normal. No obstruction. Peritoneum/mesentery: No free air or free fluid. No mesenteric lymphadenopathy. RETROPERITONEUM: Moderate atheromatous disease of the abdominal aorta. No retroperitoneal lymphaden opathy. MUSCULOSKELETAL: Superficial soft tissues: Left inguinal fat containing hernia. Otherwise The superficial soft tissues are normal. Bones: Age appropriate degenerative changes of the spine. Bilateral sacroiliitis. Severe bilateral hi p osteoarthritic changes. IMPRESSION: 1. No evidence of appendicitis, diverticulitis or intestinal obstruction. 2. Constipation. 3. Atrophic right kidney with multiple stones. 4. Soft tissue density in the left kidney lower pole which may be complex cyst or a mass. Ultrasound evaluation advised. 5. Underfilled urinary bladder with thickened wall which may indicate cystitis. Clinical evaluation advised. 6. Fat-containing left inguinal hernia. Reviewed, dictated and finalized at location A. IMPRESSION: 1. No evidence of appendicitis, diverticulitis or intestinal obstruction. 2. Constipation. 3. Atrophic right kidney with multiple stones. 4. Soft tissue density in the left kidney lower pole which may be complex cyst or a mass. Ultrasound evaluation advised. 5. Underfilled urinary bladder with thickened wall which may indicate cystitis . Clinical evaluation advised. 6. Fat-containing left inguinal hernia.
--- NOTE | ~2024-04-27 | US_ITS ---
EXAMINATION: US venous doppler LE DATE: 04/28/2024 07:39 INDICATION: Generalized weakness, confusion and afebrile. Elevated d-dimer. TECHNIQUE: Grayscale ultrasound images without and with compression and Doppler ultrasound images of the bilateral lower extremity veins were obtained. COMPARISON: None. FINDINGS: The visualized portions of right common femoral vein, profunda (deep) femoral vein, femoral vein, pop liteal vein, posterior tibial veins, peroneal veins, gastrocnemius vein and greater saphenous vein ou tflow are patent. The visualized portions of left common femoral vein, profunda femoral vein, femoral vein, popliteal v ein, posterior tibial veins, peroneal veins, gastrocnemius vein and greater saphenous vein outflow ar e patent. IMPRESSION: 1. No deep venous thrombosis in either lower limb. Reviewed, dictated and finalized at location B.
--- NOTE | 2024-04-27 10:16 | ED_ITS ---
HPI - Weakness General Chief complaint: Weakness Stated complaint: weakness Source: patient Mode of arrival: EMS Limitations: no limitations History of Present Illness HPI Narrative: 88-year-old male with a history of prostate cancer, hypertension, dyslipidemia, CHF, CKD, gait abnormality, status post partial colectomy for ruptured diverticulitis in 1991,and TAVR, status post pacemaker, chronic Andrew's serenity ter presents to the ED from home with -- generalized weakness for the past 5 days-- patient is unable to get up from bed. He sat on the commode and was unable to get off the commode. No history of falls. no focal neuro deficits. -- low-grade fever -- got his COVID booster shot yesterday no chest pain or shortness of breath no nausea/ vomiting /abdominal pain /diarrhea MD Complaint: generalized weakness Onset (ago): day(s) ( Five days) Duration: constant Location: generalized Relieving factors: none Exacerbating factors: none Associated symptoms: denies other symptoms Related Data Home Medications Medication Instructions Recorded Confirmed acetaminophen 650 mg tablet 650 mg PO Q8H PRN Pain (Scale 08/14/20 04/27/24 Score 1-3) amlodipine 10 mg tablet 2.5 mg PO DAILY 07/06/23 04/27/24 lisinopril 10 mg tablet 20 mg PO DAILY 07/06/23 04/27/24 tramadol 50 mg tablet 50 mg PO HS PRN Pain, Moderate 07/06/23 04/27/24 famotidine 20 mg tablet 20 mg PO DAILY 04/27/24 04/27/24 furosemide 40 mg tablet 40 mg PO DAILY 04/27/24 04/27/24 gabapentin 300 mg capsule 900 mg PO QHS 04/27/24 04/27/24 Allergies Allergy/AdvReac Type Severity Reaction Status Date / Time heparin Allergy Severe HIT Verified 07/06/23 18:56 ciprofloxacin Allergy Rash Verified 04/27/24 10:36 clonidine Allergy Itching Verified 07/06/23 18:56 isosorbide Allergy Rash Verified 04/27/24 10:36 mesalamine Allergy Rash Verified 07/06/23 18:56 Sulfa (Sulfonamide Allergy Rash Verified 07/06/23 18:56 Antibiotics) Review of Systems Review of Systems: All systems reviewed & are unremarkable except as noted in HPI and below Constitutional: Constitutional: Reports as per HPI, Reports no additional constitutional complaints, Reports fever(s) and Reports weakness Eyes: Eyes: Reports as per HPI and Reports no additional eye complaints ENT: Reports system reviewed and no additional complaints, except as docum ented and Reports as per HPI Cardiovascular: Cardiovascular: Reports as per HPI and Reports no additional cardiovascular complaints Respiratory: Respiratory: Reports as per HPI and Reports no additional respiratory complaints Gastrointestinal: Gastrointestinal: Reports as per HPI and Reports no additional gastrointestinal complaints Genitourinary: Genitourinary: Reports no additional male genitourinary complaints Comments: chronic Andrew's catheter Musculoskeletal: Musculoskeletal: Reports no additional musculoskeletal complaints and Reports as per HPI Integumentary/Breasts: Skin/Breast: Reports system reviewed and no additional complaints, except as docu and Reports as per HPI Neurologic: Reports system reviewed and no additional complaints, except as documented and Reports as per HPI Psychiatric: Psychiatric: Reports no additional psychiatric complaints and Reports as per HPI Endocrine: Endocrine: Reports no additional endocrine complaints and Reports as per HPI Hematologic/Lymphatic: Hematologic/Lymphatic: Reports no additional hematologic/lymphatic complaints and Reports as per HPI Allergic/Immunologic: Allergic/Immunologic: Reports no additional allerg ic/immunologic complaints and Reports as per HPI [facility] Past Medical History Medical History Diverticulitis Dyslipidemia H/O congestive heart disease Hypertension Neurologic gait dysfunction Prostate cancer Renal insufficiency Surgical History Surgical History Heart valve replaced History of colon resection Family History Family History Father Cerebrovascular accident Sibling CAD (coronary artery disease) Social History Social History Smoking status: Never smoker Alcohol intake: never Substance use: never Substance use type: does not use Living arrangements: with family Occupation/Education: retired Gender identity (if verbalized by the patient): Male Sexual Orientation (if Verbalized by the Patient): Straight or Heterosexual Spiritual care concerns: No Exam Narrative: fever with the temperature of 37.7?. Oxygen saturation of 91% on room air Const: General: ill appearing Orientation/consciousness: patient oriented x3 Limitations: no limitations HENMT: Head: normal to inspection Ears: external ears normal Face/Nose /Sinus: Normal external nose present Face and sinus: normal facial exam Mouth: Yes Normal oral and palatal mucosa present Throat: posterior oropharynx normal Eyes: Conjunctivae: conjunctivae normal Pupils: Equal, round and reactive pupils present EOM: EOMs intact bilaterally Direct Ophthalmoscopy: no photophobia Neck: Neck: normal visual inspection, no lymphadenopathy and no meningeal signs Chest: Chest palpation & inspection: normal inspection of the chest Resp: Effort & Inspection: normal respiratory effort Auscultation: clear to auscultation bilaterally Cardio: Rate: regular rate Rhythm: regular rhythm Other: paced rhythm with no gallop or murmur appreciated GI: GI Palp: Yes Soft to palpation Auscultation: normal bowel sounds Other: no tenderness/ rigidity / rebound. Suprapubic scar from prior partial colectomy. : General: Yes no CVA tenderness Urinary Catheter: Urinary Catheter: other ( Andrew's catheter draining cloudy urine) Back/Spine/Pelvis: Back: no CVA tenderness Skin: General skin exam: normal color Rashes: no rashes Wounds: no wounds Neuro: General: patient oriented x3, moves all extremities, no meningeal signs, no focal motor deficits and CN's II-XI intact bilaterally Cranial nerves: Yes Nystagmus not present Speech: normal speech Extrem: General: normal to inspection and no clubbing, cyanosis or edema Psych: Mental Status: mental status grossly normal Affect: normal affect Course Course Emergency Course: generalized weakness- CT of the head did not show any acute findings fever- no obvious focus of infection other than urinary tract infection anemia with an H&H of 10.7/34.2 acute on chronic renal failure with a BUN/ creatinine of 48/2.5. Electrolytes are stable. Urinary tract infection positive D-dimer called [facility]-- no beds available . Family is agreeable to admission here Vital Signs Vital signs: Vital Signs Temperature 37.7 C H 04/27/24 10:07 Pulse Rate 78 04/27/24 10:07 Respiratory Rate 15 04/27/24 10:07 Blood Pressure 133/69 04/27/24 10:07 Pulse Oximetry 91 04/27/24 10:07 Oxygen Delivery Room Air 04/27/24 10:07 Temperature 37.7 C H 04/27/24 14:53 Pulse Rate 91 04/27/24 14:53 Respiratory Rate 18 04/27/24 14:53 Blood Pressure 159/66 H 04/27/24 14:53 Pulse Oximetry 94 04/27/24 14:53 Oxygen Delivery Room Air 04/27/24 14:53 MDM - Weakness MDM Narrative Medical decision making narrative: generalized weakness acute on chronic renal failure positive D-dimer/ patient is due to get a V/Q scan fever secondary to UTI urinary tract infection thrombocytopenia- chronic Differential Diagnosis Differential diagnosis: Likely sepsis Medical Records Attestation: I reviewed the patient's medical records. Lab Data Attestation: I reviewed the patient's lab results. 04/27/24 10:17 04/27/24 10:17 Labs: Lab Results 04/27/24 04/27/24 04/27/24 Range/Units 10:17 10:38 11:56 WBC 4.9 (4.8-10.8) K/mm3 RBC 3.52 L (4.70-6.10) M/mm3 Hgb 10.7 L (12.4-15.3) g/dL Hct 34.2 L (37.0-46.0) % MCV 97.2 (78.0-102.0) fL MCH 30.4 (27.0-31.0) pg MCHC 31.3 L (32-36) g/dL RDW 16.4 H (11.6-14.4) % Plt Count 59 L (150-420) K/mm3 MPV Not Reportable Immature Gran % (Auto) Not Reportable Neut % (Auto) Not Reportable Lymph % (Auto) Not Reportable [place] % (Auto) Not Reportable Eos % (Auto) Not Reportable Baso % (Auto) Not Reportable Lymph # (Auto) Not Reportable [place] # (Auto) Not Reportable Eos # (Auto) Not Reportable Baso # (Auto) Not Reportable Abs Immat Gran (auto) Not Reportable Absolute Neuts (auto) Not Reportable Absolute Nucleated RBC Not Reportable Total Counted 100 Neutrophils % (Manual) 79 H (46-73) % Band Neutrophils % 1 (0-6) % Lymphocytes % (Manual) 8 L (18-44) % Monocytes % (Manual) 8 (3-9) % Eosinophils % (Manual) 1 (1-6) % Nucleated RBC % Not Reportable Abs Neuts (Manual) 3.92 (1.3-6.7) K/mm3 Abs Lymphs (Manual) 0.39 L (1.1-4.5) K/mm3 Abs Monocytes (Manual) 0.39 (0.1-0.90) K/mm3 Absolute Eos (Manual) 0.04 (0.02-0.50) K/mm3 Platelet Estimate Decreased (Adequate) % Immature Plt Fraction 19.9 H (1.0-7.0) % Schistocytes Not Reportable PT 11.0 (9.50-12.1) Seconds INR 1.0 APTT 28.2 (23.9-30.70) Sec D-Dimer 2.42 H* (0.19-0.50) mg/L Sodium 138 (136-145) mmol/L Potassium 4.6 (3.5-5.1) mmol/L Chloride 101 (98-108) mmol/L Carbon Dioxide 30 (21-32) mmol/L Anion Gap 7 (4-12) mmol/L BUN 48 H (7-18) mg/dL Creatinine 2.54 H (0.70-1.30) mg/dL Estim Creat Clear Calc Not Reportable Estimated GFR 24 L (59 - ) Glucose 111 H (70-99) mg/dL Calculated Osmolality 299 H (285-295) mOsm/kg Lactic Acid 1.6 (0.4-2.0) mmol/L Calcium 9.4 (8.5-10.1) mg/dL Magnesium 2.3 (1.8-2.4) mg/dL Total Bilirubin 0.5 (0.00-1.00) mg/dL AST 11 L (15-37) U/L ALT 10 L (16-63) U/L Alkaline Phosphatase 53 (46-116) U/L Troponin I 18.0 (0.00-60.4) ng/L NT-Pro-B Natriuret Pep 1299 H (0-450) pg/mL Total Protein 8.2 (6.4-8.2) g/dL Albumin 4.2 (3.4-5.0) g/dL Lipase 41 (16-77) U/L TSH 1.22 (0.36-3.74) uIU/mL Urine Color Yellow (Yellow) Urine Appearance Sl cloudy A (Clear) Urine pH 6.0 (5.0-8.0) Ur Specific [place] 1.015 (1.010-1.020) Urine Protein Trace H (Negative) Urine Glucose (UA) Negative (Negative) Urine Ketones Negative (Negative) Ur Blood (Man) 2+ H (Negative) Urine Nitrate Negative (Negative) Urine Bilirubin Negative (Negative) Urine Urobilinogen Normal (0.2-1.0) mg/dL Leukocyte Esterase Rfl 2+ H (Negative) [place]/UL Urine RBC 6-10 H (0-2) /hpf Urine WBC 31-50 H (0-3) /hpf Urine Bacteria 2+ H (None) /hpf Influenza A (RT-PCR) Negative (Negative) Influenza B (RT-PCR) Negative (Negative) RSV (RT-PCR) Negative (Negative) SARS-CoV-2 RNA (RT-PCR) Negative (Negative) ABG Data ABG results: 04/27/24 11:24 Puncture Site Right radial ABG pH 7.48 H ABG pCO2 28.3 L ABG pO2 71.9 L ABG PO2/FiO2 Ratio Not Reportable ABG HCO3 20.5 L ABG O2 Saturation 94.7 L ABG O2 Content 19.4 ABG Base Excess -1.7 L A-a Gradient Not Reportable Oxyhemoglobin 93.8 L O2 Delivery Device Room air O2 Liters/Min 0.0 ECG Data EKG #1: ECG completion date: 04/27/24 ECG completion time: 14:44 Interpretation: paced rhythm Discharge Plan Discharge Clinical Impression: Weakness, Positive D dimer, Acute UTI, Acute on chronic kidney failure, Thrombocytopenia Patient Disposition: Still a Patient Condition: Stable Time of Disposition: 14:28
[2024-04-27 10:53] LABS: Hematocrit 34.2 % (37.0-46.0); Hemoglobin 10.7 g/dL (12.4-15.3); Immature Platelet Fraction Pct 19.9 % (1.0-7.0); Mean Corpuscular HGB Conc 31.3 g/dL (32-36); Mean Corpuscular Hemoglobin 30.4 pg (27.0-31.0); Mean Corpuscular Volume 97.2 fL (78.0-102.0); Platelet Count Result 59 K/mm3 (150-420); Red Blood Count 3.52 M/mm3 (4.70-6.10); Red Cell Distribution Width 16.4 % (11.6-14.4); White Blood Count 4.9 K/mm3 (4.8-10.8)
[2024-04-27 11:00] LABS: Lactic Acid Reflex 1.6 mmol/L (0.4-2.0)
[2024-04-27 11:07] LABS: Partial Thromboplastin Time 28.2 Sec (23.9-30.70)
[2024-04-27 11:09] LABS: Alanine Aminotransferase 10 U/L (16-63); Albumin Level 4.2 g/dL (3.4-5.0); Alkaline Phosphatase 53 U/L (46-116); Anion Gap 7 mmol/L (4-12); Aspartate Amino Transferase 11 U/L (15-37); Bilirubin,Total 0.5 mg/dL (0.00-1.00); Blood Urea Nitrogen 48 mg/dL (7-18); Calcium 9.4 mg/dL (8.5-10.1); Carbon Dioxide 30 mmol/L (21-32); Chloride 101 mmol/L (98-108); Estimated Glomerular Filt Rate 24; Glucose 111 mg/dL (70-99); NT Pro B Type Natriuretic Pept 1299 pg/mL (0-450); Osmolality Calculated 299 mOsm/kg (285-295); Potassium 4.6 mmol/L (3.5-5.1); Sodium 138 mmol/L (136-145); Total Protein 8.2 g/dL (6.4-8.2)
[2024-04-27 11:10] LABS: D Dimer 2.42 mg/L (0.19-0.50); Lipase 41 U/L (16-77); Magnesium 2.3 mg/dL (1.8-2.4)
[2024-04-27 11:11] LABS: Thyroid Stimulating Hormone 1.22 uIU/mL (0.36-3.74)
[2024-04-27 11:19] LABS: Band Neutrophils Percent 1 % (0-6); Eosinophils Absolute Manual 0.04 K/mm3 (0.02-0.50); Eosinophils Percent Manual 1 % (1-6); Lymphocytes Absolute Manual 0.39 K/mm3 (1.1-4.5); Lymphocytes Percent Manual 8 % (18-44); Monocytes Absolute Manual 0.39 K/mm3 (0.1-0.90); Monocytes Percent Manual 8 % (3-9); Neutrophils Absolute Manual 3.92 K/mm3 (1.3-6.7); Neutrophils Percent Manual 79 % (46-73); Platelet Estimate Decreased (Adequate); Total Cells Counted 100
[2024-04-27 11:28] LABS: SARS-CoV-2 RNA PCR Negative (Negative)
[2024-04-27 11:28] LABS: Base Excess ABG -1.7 mmol/L (0-2); HCO3 ABG 20.5 mmol/L (23-29); Oxygen Content ABG 19.4 %vol (16.0-22.0); Oxygen Saturation ABG 94.7 % (95-97); Oxyhemoglobin 93.8 % (94-100); PCO2 ABG 28.3 mmHg (35-45); PO2 ABG 71.9 mmHg (75-85); pH ABG 7.48 (7.35-7.45)
[2024-04-27 11:29] LABS: Device ROOM AIR; Modified Allen's Test Pass; Site Drawn RIGHT RADIAL
[2024-04-27 11:31] LABS: Influenza A QL RT-PCR Negative (Negative); Influenza B QL RT-PCR Negative (Negative); RSV RNA, RT-PCR Negative (Negative)
[2024-04-27 12:19] LABS: Appearance Urine Sl Cloudy (Clear); Color Urine Yellow (Yellow); Protein Urine Trace (Negative); Specific Grav Ur 1.015 (1.010-1.020)
[2024-04-27 12:20] LABS: Add Urine Microscopic? YES; Bilirubin Urine Negative (Negative); Blood Urine 2+ (Negative); Glucose Urine UA Negative (Negative); Ketones Urine Negative (Negative); Leukocyte Esterase Ur 2+ LEU/UL (Negative); Nitrate Urine Negative (Negative); Urobilinogen Urine Normal mg/dL (0.2-1.0); WBC Urine 31-50 /hpf (0-3)
[2024-04-27 12:21] LABS: Bacteria Urine 2+ /hpf
[2024-04-27] MEDS: SODIUM CHLORIDE 0.9% IV 500 ML 999 ML IV CONT (12:29)
--- NOTE | 2024-04-27 14:32 | ECG_ITS ---
Test Date: 2024-04-27 14:44:27 Measurements Intervals [place] Rate: 90 P: 81 AK: 202 QRS: -70 QRSD: 192 T: 76 QT: 435 QTc: 533 Interpretive Statements ATRIAL SENSE- ELECTRONIC VENTRICULAR PACEMAKER BASELINE ARTIFACT- I, II, III AVR, AVL, V1-V2 NO FURTHER INTERPRETATION IS POSSIBLE ATYPICAL ECG No previous ECG available for comparison Electronically Signed On 04-27-2024 14:49:00 CDT by Baudilio Matthew D.O.
--- NOTE | 2024-04-27 14:55 | ADMGEN ---
This patient, Pasquale Hernandez, was admitted to 2nd Floor Room 203-2. Patient/family oriented to hospital policies and general routines including ID bracelet, bed and alarms, visiting hours, pain management, procedures, bathroom and other care routines, personal items, smoking policy, room service/diet, and visiting hours. Information on how to activate the Rapid Response Team has been discussed. Patient/Family are encouraged to report perceived risks to care and to ask questions if they do not understand what they are told or what they should do.
[2024-04-27] MEDS: FERROUS SULFATE 325 MG TABLET DR BY MOUTH (17:10)
[2024-04-27] MEDS: MEROPENEM 1 GM/NS 100 ML 1 GM/100 ML BAG IVPB (17:58)
[2024-04-27] MEDS: carvediloL 12.5 MG TABLET PO (17:59)
[2024-04-27] MEDS: SODIUM BICARBONATE TAB 650 MG TABLET PO (17:59)
[2024-04-28] VITALS (8 sets, daily range): BP systolic 124–139; BP diastolic 50–64; PULSE 60–85; RESP 15–16; TEMP 36.4–36.8; O2SAT 95–97
[2024-04-28 05:30] LABS: Hematocrit 31.3 % (37.0-46.0); Hemoglobin 9.7 g/dL (12.4-15.3); Immature Platelet Fraction Pct 19.9 % (1.0-7.0); Mean Corpuscular Hemoglobin 30.4 pg (27.0-31.0); Mean Corpuscular Volume 98.1 fL (78.0-102.0); Platelet Count Result 50 K/mm3 (150-420); Red Blood Count 3.19 M/mm3 (4.70-6.10); Red Cell Distribution Width 16.6 % (11.6-14.4)
[2024-04-28 05:42] LABS: Alanine Aminotransferase 9 U/L (16-63); Albumin Level 3.3 g/dL (3.4-5.0); Alkaline Phosphatase 42 U/L (46-116); Anion Gap 9 mmol/L (4-12); Aspartate Amino Transferase 17 U/L (15-37); Bilirubin,Total 0.4 mg/dL (0.00-1.00); Blood Urea Nitrogen 41 mg/dL (7-18); Calcium 9.1 mg/dL (8.5-10.1); Carbon Dioxide 26 mmol/L (21-32); Chloride 104 mmol/L (98-108); Estimated CRCL calculation 18 ml/min; Estimated Glomerular Filt Rate 25; Glucose 100 mg/dL (70-99); Osmolality Calculated 298 mOsm/kg (285-295); Potassium 4.1 mmol/L (3.5-5.1); Sodium 139 mmol/L (136-145); Total Protein 7.2 g/dL (6.4-8.2)
[2024-04-28 05:49] LABS: Band Neutrophils Percent 1 % (0-6); Basophils Percent Manual 0 % (0-1); Eosinophils Percent Manual 0 % (1-6); Lymphocytes Absolute Manual 0.66 K/mm3 (1.1-4.5); Lymphocytes Percent Manual 22 % (18-44); Monocytes Absolute Manual 0.45 K/mm3 (0.1-0.90); Monocytes Percent Manual 15 % (3-9); Neutrophils Absolute Manual 1.89 K/mm3 (1.3-6.7); Neutrophils Percent Manual 62 % (46-73); Total Cells Counted 100
[2024-04-28 05:50] LABS: Giant Platelets Present; Platelet Estimate Decreased (Adequate)
[2024-04-28] MEDS: MEROPENEM 1 GM/NS 100 ML 1 GM/100 ML BAG IVPB ×3 (05:51→20:39)
[2024-04-28] MEDS: traMADol HCL (*CRX) 50 MG TABLET PO ×3 (05:52→20:38)
--- NOTE | 2024-04-28 06:01 | PM.IMHP ---
H&P: HPI History of Present Illness Date/Time: 04/28/24 06:01 Chief Complaint: WEakness, UTI, Congestive heart failure Narrative: This is a 88 year old male that presents to the hospital with weakness and inability to get off of commode was found to have elevated DD with some weakness and possible UTI Patient is being treated with IV antibiotics he has some acute on chronic kidney failure we will gently diuresis and hydrate. We will continue to monitor for fluid overload. Patient has some CHF Noted. we will continue to monitor. Review of Systems Review of Systems: Weakness, lethargy, UTi All systems reviewed & are unremarkable except as noted in HPI and below PMFSH Past Medical History Medical History Diverticulitis Dyslipidemia H/O congestive heart disease Hypertension Neurologic gait dysfunction Prostate cancer Renal insufficiency Surgical History Surgical History Heart valve replaced History of colon resection Family History Family History Father Cerebrovascular accident Sibling CAD (coronary artery disease) Social History Social History Smoking status: Never smoker Alcohol intake: never Substance use: never Substance use type: does not use Do You Feel Safe in your Home?: Yes Lack of Transportation: No Lack of Food: Never True Current Housing: I Have Housing Concerned About Future Housing: No Difficulty Paying Gas/Electric Bills: No Difficulty Paying for Meds: No Currently Unemployed: No Education: Trade/Vocational Certificate Difficulty w/ Childcare or Family Care: No Living arrangements: with family Occupation/Education: retired Gender identity (if verbalized by the patient): Male Sexual Orientation (if Verbalized by the Patient): Straight or Heterosexual Spiritual care concerns: No Meds Home Medications and Allergies Home Medications Medication Instructions Recorded Confirmed Type acetaminophen 650 mg tablet 650 mg PO Q8H PRN Pain (Scale 08/14/20 04/27/24 History Score 1-3) aspirin 81 mg tablet,delayed 81 mg PO DAILY 30 days #30 tabs 08/28/20 04/27/24 Rx release (Enteric Coated Aspirin) carvedilol 12.5 mg tablet 12.5 mg PO BID #60 tabs 08/28/20 04/27/24 Rx ferrous sulfate 325 mg (65 mg 325 mg PO QMWF #90 tabs 08/28/20 04/27/24 Rx iron) tablet polyethylene glycol 3350 17 17 g PO DAILY #30 grams 08/28/20 04/27/24 Rx gram/dose oral powder (Miralax) pravastatin 80 mg tablet 80 mg PO DAILY #30 tabs 08/28/20 04/27/24 Rx sodium bicarbonate 650 mg tablet 650 mg PO BID #60 tabs 08/28/20 04/27/24 Rx tamsulosin 0.4 mg capsule (Flomax) 0.4 mg PO DAILY #30 caps 08/28/20 04/27/24 Rx amlodipine 10 mg tablet 2.5 mg PO DAILY 07/06/23 04/27/24 History lisinopril 10 mg tablet 20 mg PO DAILY 07/06/23 04/27/24 History tramadol 50 mg tablet 50 mg PO HS PRN Pain, Moderate 07/06/23 04/27/24 History famotidine 20 mg tablet 20 mg PO DAILY 04/27/24 04/27/24 History furosemide 40 mg tablet 40 mg PO DAILY 04/27/24 04/27/24 History gabapentin 300 mg capsule 900 mg PO QHS 04/27/24 04/27/24 History Allergies Allergy/AdvReac Type Severity Reaction Status Date / Time heparin Allergy Severe HIT Verified 07/06/23 18:56 ciprofloxacin Allergy Rash Verified 04/27/24 10:36 clonidine Allergy Itching Verified 07/06/23 18:56 isosorbide Allergy Rash Verified 04/27/24 10:36 mesalamine Allergy Rash Verified 07/06/23 18:56 Sulfa (Sulfonamide Allergy Rash Verified 07/06/23 18:56 Antibiotics) Vital Signs Vital Signs - 24 hr 04/27/24 10:07 04/27/24 10:07 04/27/24 10:16 Temperature 99.8 F H Pulse Rate 78 84 81 Respiratory Rate 15 16 Blood Pressure 133/69 Pulse Oximetry 91 94 Oxygen Delivery Room Air 04/27/24 10:30 04/27/24 10:31 04/27/24 11:10 Temperature Pulse Rate 84 85 90 Respiratory Rate 18 18 20 Blood Pressure 163/57 H Pulse Oximetry 93 92 93 Oxygen Delivery Room Air 04/27/24 11:11 04/27/24 11:15 04/27/24 11:30 Temperature Pulse Rate 90 93 91 Respiratory Rate 15 16 12 Blood Pressure 160/67 H 166/60 H Pulse Oximetry 94 96 94 Oxygen Delivery 04/27/24 11:31 04/27/24 11:45 04/27/24 11:46 Temperature Pulse Rate 90 90 87 Respiratory Rate 14 12 11 L Blood Pressure 151/66 H Pulse Oximetry 94 95 95 Oxygen Delivery 04/27/24 12:00 04/27/24 12:01 04/27/24 12:15 Temperature Pulse Rate 88 87 86 Respiratory Rate 12 10 L 10 L Blood Pressure 145/61 H 158/61 H Pulse Oximetry 95 94 99 Oxygen Delivery 04/27/24 12:16 04/27/24 12:30 04/27/24 12:31 Temperature Pulse Rate 86 88 90 Respiratory Rate 16 12 12 Blood Pressure 151/71 H Pulse Oximetry 95 96 94 Oxygen Delivery 04/27/24 12:45 04/27/24 12:46 04/27/24 13:00 Temperature Pulse Rate 94 95 97 Respiratory Rate 16 15 11 L Blood Pressure 168/67 H 162/67 H Pulse Oximetry 94 93 94 Oxygen Delivery 04/27/24 13:01 04/27/24 13:15 04/27/24 13:16 Temperature Pulse Rate 96 92 88 Respiratory Rate 17 7 L 9 L Blood Pressure 159/61 H Pulse Oximetry 93 94 94 Oxygen Delivery 04/27/24 13:30 04/27/24 13:31 04/27/24 13:45 Temperature Pulse Rate 88 86 87 Respiratory Rate 13 14 8 L Blood Pressure 141/61 H 149/56 H Pulse Oximetry 93 93 93 Oxygen Delivery 04/27/24 13:46 04/27/24 14:00 04/27/24 14:01 Temperature Pulse Rate 87 89 86 Respiratory Rate 12 15 9 L Blood Pressure 152/60 H Pulse Oximetry 94 93 94 Oxygen Delivery 04/27/24 14:53 04/27/24 17:59 04/27/24 16:00 Temperature 99.9 F H 99.2 F Pulse Rate 91 80 78 Respiratory Rate 18 20 Blood Pressure 159/66 H 153/59 H Pulse Oximetry 94 96 Oxygen Delivery Room Air Room Air 04/27/24 20:00 04/28/24 00:00 04/28/24 00:00 Temperature 97.9 F Pulse Rate 70 70 67 Respiratory Rate 15 Blood Pressure 127/50 L Pulse Oximetry 96 Oxygen Delivery Room Air Exam Const: General: uncomfortable Other: Lethargic although easily arousable HENMT: Ears: TM's normal bilaterally Eyes: General: appearance normal, both eyes and all related structures Resp: Effort & Inspection: normal respiratory effort Auscultation: diminished lung sounds Cardio: Rate: bradycardic Rhythm: regular rhythm GI: GI Palp: Yes Soft to palpation Skin: General skin exam: normal color Neuro: Speech: normal speech Extrem: General: normal exam except as noted Other: brusing noted on legs and arm multiple stages of healing Psych: Mental Status: mental status grossly normal H&P: Results Labs Labs: Short CBC 04/27/24 04/28/24 Range/Units 10:17 05:09 WBC 4.9 3.0 L (4.8-10.8) K/mm3 Hgb 10.7 L 9.7 L (12.4-15.3) g/dL Hct 34.2 L 31.3 L (37.0-46.0) % Plt Count 59 L 50 L (150-420) K/mm3 BMP 04/27/24 04/28/24 10:17 05:09 Sodium 138 139 Potassium 4.6 4.1 Chloride 101 104 Carbon Dioxide 30 26 BUN 48 H 41 H Creatinine 2.54 H 2.44 H Glucose 111 H 100 H Calcium 9.4 9.1 Cardiac Enzymes 04/27/24 Range/Units 10:17 Troponin I 18.0 (0.00-60.4) ng/L Liver Function 04/27/24 04/28/24 Range/Units 10:17 05:09 Total Bilirubin 0.5 0.4 (0.00-1.00) mg/dL AST 11 L 17 (15-37) U/L ALT 10 L 9 L (16-63) U/L Alkaline Phosphatase 53 42 L (46-116) U/L Albumin 4.2 3.3 L (3.4-5.0) g/dL Urine 04/27/24 Range/Units 11:56 Urine Color Yellow (Yellow) Urine Appearance Sl cloudy A (Clear) Urine pH 6.0 (5.0-8.0) Ur Specific [place] 1.015 (1.010-1.020) Urine Protein Trace H (Negative) Urine Glucose (UA) Negative (Negative) Assessment and Plan Assessment and plan (1) Weakness: Code(s): R53.1 - Weakness Status: Acute Assessment and Plan: Pt/OT evaluate and treat (2) Positive D dimer: Code(s): R79.89 - Other specified abnormal findings of blood chemistry Status: Acute Assessment and Plan: VQ scan low probability of PE Doppler scan negative for any DVT in the legs No anticoagulation due to thrombocytopenia risk of bleeding. (3) Acute UTI: Code(s): N39.0 - Urinary tract infection, site not specified Status: Acute Assessment and Plan: IV antibioitics Urine sent off for cultures Monitor for worseing symptoms (4) Acute on chronic kidney failure: Code(s): N17.9 - Acute kidney failure, unspecified; N18.9 - Chronic kidney disease, unspecified Status: Acute Assessment and Plan: IV Fluids avoid nephrotoxic medication (5) Thrombocytopenia: Code(s): D69.6 - Thrombocytopenia, unspecified Status: Acute Assessment and Plan: Idiopathic thrombocytopenia avoid anticoagulation at this time. (6) Pain: Code(s): R52 - Pain, unspecified Status: Acute Assessment and Plan: pain assessment prn pain medication Plan IV Fluids Iv Antibiotics monitor for worsening CHF have PT/OT evaulate treat
[2024-04-28] MEDS: FUROSEMIDE INJ 20 MG/2 ML VIAL 40 MG IV PUSH (06:31)
[2024-04-28] MEDS: FAMOTIDINE 20 MG TABLET PO (10:16)
[2024-04-28] MEDS: carvediloL 12.5 MG TABLET PO ×2 (10:16→16:01)
[2024-04-28] MEDS: TAMSULOSIN HCL 0.4 MG CAPSULE PO (10:16)
[2024-04-28] MEDS: SODIUM BICARBONATE TAB 650 MG TABLET PO ×2 (10:16→16:01)
[2024-04-28] MEDS: amLODIPine BESYLATE 2.5 MG TABLET PO (10:17)
[2024-04-28] MEDS: PRAVASTATIN SODIUM 20 MG TABLET 80 MG PO (10:17)
--- NOTE | 2024-04-28 13:42 | PC.NURSE ---
Respiratory rate accidentally got charted as a false high, caused the high risk sepsis protocol to activate. [employer] notified it was an accident, charting corrected.
--- NOTE | 2024-04-28 13:43 | PC.NURSE ---
patient changed to IP
[2024-04-28] MEDS: GABAPENTIN 300 MG CAPSULE 900 MG PO (20:40)
--- NOTE | 2024-04-29 03:17 | PC.NURSE ---
Patient had large moderate emesis of liquid and partially digested food, denies pain, will continue to monitor.
[2024-04-29 05:30] LABS: Hematocrit 30.6 % (37.0-46.0); Immature Platelet Fraction Pct 19.8 % (1.0-7.0); Mean Corpuscular HGB Conc 32.7 g/dL (32-36); Mean Corpuscular Hemoglobin 30.9 pg (27.0-31.0); Mean Corpuscular Volume 94.4 fL (78.0-102.0); Platelet Count Result 42 K/mm3 (150-420); Red Blood Count 3.24 M/mm3 (4.70-6.10); White Blood Count 3.3 K/mm3 (4.8-10.8)
[2024-04-29] MEDS: MEROPENEM 1 GM/NS 100 ML 1 GM/100 ML BAG IVPB (05:48)
[2024-04-29 05:52] LABS: Alanine Aminotransferase 8 U/L (16-63); Albumin Level 3.1 g/dL (3.4-5.0); Alkaline Phosphatase 41 U/L (46-116); Anion Gap 7 mmol/L (4-12); Aspartate Amino Transferase 18 U/L (15-37); Bilirubin,Total 0.4 mg/dL (0.00-1.00); Blood Urea Nitrogen 42 mg/dL (7-18); Carbon Dioxide 27 mmol/L (21-32); Chloride 102 mmol/L (98-108); Estimated CRCL calculation 21 ml/min; Estimated Glomerular Filt Rate 29; Glucose 121 mg/dL (70-99); Osmolality Calculated 293 mOsm/kg (285-295); Sodium 136 mmol/L (136-145); Total Protein 6.9 g/dL (6.4-8.2)
[2024-04-29 06:29] LABS: Band Neutrophils Percent 4 % (0-6); Basophils Percent Manual 0 % (0-1); Eosinophils Absolute Manual 0.16 K/mm3 (0.02-0.50); Eosinophils Percent Manual 5 % (1-6); Lymphocytes Absolute Manual 0.49 K/mm3 (1.1-4.5); Lymphocytes Percent Manual 15 % (18-44); Metamyelocytes Percent 1 %; Monocytes Absolute Manual 0.39 K/mm3 (0.1-0.90); Monocytes Percent Manual 12 % (3-9); Neutrophils Absolute Manual 2.21 K/mm3 (1.3-6.7); Neutrophils Percent Manual 63 % (46-73); Platelet Estimate Decreased (Adequate); Total Cells Counted 100
[2024-04-29 08:00] VITALS: BP 142/48; PULSE 68; RESP 20; TEMP 36.9; O2SAT 96
[2024-04-29 09:25] VITALS: PULSE 68
[2024-04-29] MEDS: traMADol HCL (*CRX) 50 MG TABLET PO ×2 (09:25→13:18)
[2024-04-29] MEDS: TAMSULOSIN HCL 0.4 MG CAPSULE PO (09:25)
[2024-04-29] MEDS: PRAVASTATIN SODIUM 20 MG TABLET 80 MG PO (09:25)
[2024-04-29] MEDS: carvediloL 12.5 MG TABLET PO (09:25)
[2024-04-29] MEDS: FAMOTIDINE 20 MG TABLET PO (09:25)
[2024-04-29] MEDS: amLODIPine BESYLATE 2.5 MG TABLET PO (09:25)
[2024-04-29] MEDS: SODIUM BICARBONATE TAB 650 MG TABLET PO (09:25)
[2024-04-29] MEDS: FERROUS SULFATE 325 MG TABLET DR BY MOUTH (09:29)
--- NOTE | 2024-04-29 13:23 | PM.DS ---
DS: Admitting Diagnosis Discharge Date 03/29/2024 Admitting Diagnosis UtI Weakness, Elevated DD, Acute kidney injury , Congestive heart failure DS: Summary Hospital Course Reason for hospitalization: UTI , CHF, Weakness, Elevated DD, Idiopathic Thrombocytopenia Hospital Course: This iis a 88 year old male that was admitted to the hospital who was lethargic and had idoipathic thrombocytopenia. with Elevated DDimer. It was found that he had a UTI which could have been the cause of his weakness. He was evaluated by Physical therapy and was treated with IV antibiotics. Patient Elevated DD was of concern he had a VQ scan due to elevated kidney function which should low probability of a Pulmonary Embolus, we completed a ultrasound of bilateral legs and there was no DVT identified. No anticoagulation was administered due to low platelets. Patient has continue to remain afebrile and is eating and drinking without difficulites and is showing improvement He will return to home with home health services he has recieved three doses of IV Rocephin and we will not sent home on oral medication at this time. if something else should grow we will consider calling in some medicaition. Time Spent with Patient Time attestation: Total time spent providing and/or coordinating discharge services: DS: Data Data Completed and Pending Labs on day of discharge: Labs from last 24 hours 04/29/24 04/27/24 05:12 11:24 WBC 3.3 L RBC 3.24 L Hgb 10.0 L Hct 30.6 L MCV 94.4 MCH 30.9 MCHC 32.7 RDW 16.0 H Plt Count 42 L MPV Not Reportable Immature Gran % (Auto) Not Reportable Neut % (Auto) Not Reportable Lymph % (Auto) Not Reportable [place] % (Auto) Not Reportable Eos % (Auto) Not Reportable Baso % (Auto) Not Reportable Lymph # (Auto) Not Reportable [place] # (Auto) Not Reportable Eos # (Auto) Not Reportable Baso # (Auto) Not Reportable Abs Immat Gran (auto) Not Reportable Absolute Neuts (auto) Not Reportable Absolute Nucleated RBC Not Reportable Total Counted 100 Neutrophils % (Manual) 63 Band Neutrophils % 4 Lymphocytes % (Manual) 15 L Monocytes % (Manual) 12 H Eosinophils % (Manual) 5 Basophils % (Manual) 0 Metamyelocytes % 1 Nucleated RBC % Not Reportable Abs Neuts (Manual) 2.21 Abs Lymphs (Manual) 0.49 L Abs Monocytes (Manual) 0.39 Absolute Eos (Manual) 0.16 Abs Basophils (Manual) 0.00 Platelet Estimate Decreased % Immature Plt Fraction 19.8 H Schistocytes Not Reportable Total Hemoglobin Not Reportable Sodium 136 Potassium 4.0 Chloride 102 Carbon Dioxide 27 Anion Gap 7 BUN 42 H Creatinine 2.14 H Estim Creat Clear Calc 21 Estimated GFR 29 L Glucose 121 H Calculated Osmolality 293 Calcium 9.0 Total Bilirubin 0.4 AST 18 ALT 8 L Alkaline Phosphatase 41 L Total Protein 6.9 Albumin 3.1 L Preliminary micro results at discharge 04/27/24 11:25 Blood Culture - Preliminary Blood 04/27/24 11:25 Blood Culture - Preliminary Blood Discharge Plan Discharge Attending physician on discharge: Brayan Joya Consulting providers: Promise Guevara; Damián Husain V.; Baudilio Matthew; Bertram De Souza; Barak Shukla Discharging Clinician: Promise Guevara Anticipated Discharge Date/Time: 04/29/24 13:00 Patient Disposition: Home Health Service Activity: may shower, as tolerated and pelvic rest Diet: heart healthy Wound Care Instructions: follow printed instructions Discharge Instructions: You have been treated for the UTI and there is no need for antibiotics on discharge at this time. Drink plenty of fluids Take any medication needed You need to discuss with your PCP about arthritis pain . Per Care Coordination: [facility] will follow you at discharge for group home and physical therapy. They will call you on Thursday, April 30 to schedule services. Their number is [phone]. Patient Instructions: Antibiotic Form, Urinary Tract Infection in Men (DC), Weakness (DC), Arthritis (DC) Stand Alone Forms: General Discharge Information Follow-up/Referrals: Amanda,Kiran Bruner MD [Primary Care Provider] - Discharge Medications: Continued tramadol 50 mg tablet 50 mg PO HS PRN (Reason: Pain, Moderate) amlodipine 10 mg tablet 2.5 mg PO DAILY lisinopril 10 mg tablet 20 mg PO DAILY furosemide 40 mg tablet 40 mg PO DAILY famotidine 20 mg tablet 20 mg PO DAILY gabapentin 300 mg capsule 900 mg PO QHS acetaminophen 650 mg Tablet 650 mg PO Q8H PRN (Reason: Pain (Scale Score 1-3)) carvedilol 12.5 mg Tablet 12.5 mg PO BID Qty: 60 0RF pravastatin 80 mg Tablet 80 mg PO DAILY Qty: 30 0RF tamsulosin [Flomax] 0.4 mg Capsule 0.4 mg PO DAILY Qty: 30 0RF sodium bicarbonate 650 mg Tablet 650 mg PO BID Qty: 60 0RF ferrous sulfate 325 mg (65 mg iron) Tablet 325 mg PO QMWF Qty: 90 0RF polyethylene glycol 3350 [Miralax] 17 gram/dose Powder 17 g PO DAILY Qty: 30 0RF aspirin [Enteric Coated Aspirin] 81 mg Tablet,Delayed Release (Dr/Ec) 81 mg PO DAILY 30 Days Qty: 30 0RF Date of admission: 04/28/24 13:43 Primary Care Provider: Amanda,Kiran Bruner Admitting Provider: Brayan Joya Attending physician on admission: Brayan Joya Condition: Stable Health Concerns: Discharge with [facility] for SN and PT
--- NOTE | 2024-04-29 18:03 | PC.NURSE ---
Patient alert and oriented. Able to ambulate very slowly from bed to wheelchair for discharge. Andrew cath intact and draining clear yellow urine. IV removed intact from right AC. Pressure applied and site covered with gauze and tape. Patient tolerated well. Skin warm and dry. No c/o pain. Nurse assisted patient down to family car and assisted into the front seat.
--- NOTE | 2024-05-02 11:17 | PC.NURSE ---
Discharge call back attempted, no answer
--- NOTE | 2024-05-03 11:58 | PC.NURSE ---
Discharge call back attempted, no answer
--- NOTE | 2024-05-05 08:48 | PC.NURSE ---
Unable to reach for discharge call back
== END 2024-04-29 17:40 | disposition home health service (06) | DRG 699 ==
LOC: CHSED 13:16 → CHS2ND 14:33
PROVIDERS: Nurse Practitioner Family; Admitting Provider Internal Medicine; Emergency Provider Internal Medicine Critical Care Medicine; PCP Internal Medicine; Visit Provider Internal Medicine
DX: T83.511A Infection and inflammatory reaction due to indwelling urethral catheter, initial encounter (principal); I13.0 Hypertensive heart and chronic kidney disease with heart failure and stage 1 through stage 4 chronic kidney disease, or unspecified chronic kidney disease; N17.9 Acute kidney failure, unspecified; N39.0 Urinary tract infection, site not specified; N18.9 Chronic kidney disease, unspecified; D69.6 Thrombocytopenia, unspecified; I50.9 Heart failure, unspecified; E78.5 Hyperlipidemia, unspecified; R26.89 Other abnormalities of gait and mobility; C61 Malignant neoplasm of prostate; Z95.2 Presence of prosthetic heart valve; Z79.82 Long term (current) use of aspirin
CPT/HCPCS: 36415; 36600; 70450; 71045; 74176; 78582; 80053; 81001; 82805; 83605; 83690; 83735; 83880; 84443; 84484; 85025; 85055; 85380; 85610; 85730; 87040; 87077; 87086; 87088; 87186; 87637; 93005; 93970; 96361; 96365; 96366; 96367; 96375; 97161; 97165; 99285; A9270; A9540; A9558; G0378; J0696; J1940; J2185; J7040

== ENCOUNTER 2024-08-25 19:13 | Outpatient (NON) | payer MEDICARE, SELFPAY ==
[2024-08-25 21:14] LABS: Add Urine Microscopic? YES; Appearance Urine Clear (Clear); Bilirubin Urine Negative (Negative); Blood Urine 3+ (Negative); Color Urine Yellow (Yellow); Glucose Urine UA Negative (Negative); Ketones Urine Negative (Negative); Leukocyte Esterase Ur 2+ LEU/UL (Negative); Nitrate Urine Negative (Negative); Protein Urine 1+ (Negative); Urobilinogen Urine 0.2 mg/dL (0.2-1.0); pH Urine 7.5 (5.0-8.0)
[2024-08-25 21:18] LABS: Bacteria Urine 3+ /hpf; Mucus Urine Heavy /lpf; RBC Urine >75 /hpf (0-2); Squamous Epithelial Cell Urine Few /hpf (Few); WBC Urine >75 /hpf (0-3)
== END 2024-08-25 19:14 | disposition home or self-care (01) ==
LOC: CHSLAB 19:14
PROVIDERS: PCP Internal Medicine; Visit Provider Urology
DX: R41.0 Disorientation, unspecified (principal)
CPT/HCPCS: 81001; 87086